=== PATIENT | female | born 1930 | race Caucasian/White ===

== ENCOUNTER 2017-07-20 10:44 | Inpatient (IN) | payer OTHER, MEDICARE ==
[~2017-07-20] VITALS: Ht 157.5 cm; Wt 65.8 kg
[~2017-07-20 10:44] MED LIST: ACETAMINOPHEN-1 EAC3 PO; AMLODIPINE BESYL5 M1 PO; BUSPIRONE HCL10 M1 PO; COLACE100 M1 PO; DONEPEZIL HCL10 M1 PO; FOLIC ACID0.8 M2 PO; NAMENDA XR28 M1 PO; OMEPRAZOLE10 M1 PO; PAROXETINE HCL20 M1 PO; VITAMIN B-121000 MC3 PO
--- NOTE | 2017-07-20 11:11 | ED GI/GU/ABDOMINAL COMPLAINT ---
History of Present Illness General Chief Complaint: Abdominal Pain/Flank Pain Stated Complaint: BIBA ABDOMINAL PAIN, NO BOWEL MOVEMENTS Source: patient, old records, EMS, W10 Exam Limitations: dementia, poor historian Vital Signs & Intake/Output Vital Signs & Intake/Output Vital Signs Date Time Temp Pulse Resp B/P B/P Pulse O2 O2 Flow FiO2 Mean Ox Delivery Rate 07/20 1700 99.0 100 16 116/48 92 Room Air / 1634 99.1 102 18 142/60 93 Room Air 07/20 1551 99.0 100 18 139/61 93 Room Air 03/ 1053 98.4 92 18 209/79 95 Room Air Room Air Allergies Coded Allergies: Penicillins (UNKNOWN 12/09/16) Reconcile Medications Acetaminophen (Tylenol) 325 MG TABLET 2 TAB PO Q4H PRN PAIN/TEMP>100 ( Reported) Acetaminophen With Codeine (Acetaminophen-Cod #3 Tablet) 300 MG-30 MG TABLET 1 TAB PO Q12H PAIN (Reported) Amlodipine Besylate 5 MG TABLET 1 TAB PO DAILY BP (Reported) Bisacodyl (Dulcolax) 10 MG SUPP.RECT 1 SUP RC AD PRN CONSTIPATION (Reported) Buspirone HCl 5 MG TABLET 0.5 TAB PO QAM UNKNOWN (Reported) Buspirone HCl 5 MG TABLET 12.5 MG PO QPM UNKNOWN (Reported) Cyanocobalamin (Vitamin B-12) 1,000 MCG TABLET 1 TAB PO Q3D VITAMIN SUPPORT ( Reported) Docusate Sodium (Colace) 100 MG CAPSULE 1 CAP PO DAILY STOOL SOFTENER ( Reported) Donepezil HCl 10 MG TABLET 1 TAB PO 1700 DEMENTIA (Reported) Folic Acid 0.8 MG TABLET 1 TAB PO DAILY SUPPLEMENT (Reported) Mag Hydrox/Al Hydrox/Simeth (Antacid Maximum Strength Liq) 400 MG-400 MG-40 MG/5 ML ORAL.SUSP 30 ML PO TID PRN EPIGASTRIC/GAS PAIN (Reported) Magnesium Hydroxide (Milk Of Magnesia) 400 MG/5 ML ORAL.SUSP 30 ML PO DAILY PRN CONSTIPATION (Reported) Memantine HCl (Namenda XR) 28 MG CAP.SPR.24 1 CAP PO QHS DEMENTIA (Reported) Na Phos,M-B/Na Phos,Di-Ba (Fleet Enema) 19 GRAM-7 GRAM/118 ML ENEMA 1 E RC DAILY PRN CONSTIPATION (Reported) Nitroglycerin (Nitrostat) 0.3 MG TAB.SUBL 1 TAB SL AD PRN CHEST PAIN ( Reported) Omeprazole 10 MG CAPSULE.DR 1 CAP PO 1600 ACID REFLUX (Reported) Paroxetine HCl 20 MG TABLET 1 TAB PO DAILY MENTAL HEALTH (Reported) Triage Note: BIBA FROM [facility] IN [place] FOR C/O DIFFUSE LOWER ABD DISTENTION AND PAIN, PER EMS [facility] REPORTED DECREASE BM'S X 2 DAYS. PT ARRIVES TO ED AWAKE, ALERT, FORETFUL WHICH IS BASELINE PER EMS. PT C/O MID TO LOWER ABD PAIN WITH MOVEMENT TO SIT UP TO CHANGE OUT OF BATHROBE. PT DENIES NAUSEA OR VOMITING. Triage Nurses Notes Reviewed? yes ? N Is pt currently ? No HPI: Patient presents for evaluation of abdominal pain. The patient herself wasn't sure of exactly why she was sent to the emergency department but with specific questioning does admit to having abdominal pain over the past 2 days. She is describing a cramping lower abdominal pain that has been intermittent. Nothing seems to make her feel better and pain worsens with palpation of the abdomen and certain movements. She states she has been urinating frequently but is unable to state whether or not urination impaction on the pain. She denies the urge to have bowel movements. She denies fever, cold symptoms, vomiting or diarrhea. Past History Travel History Traveled to [place] past 21 day No Medical History Any Pertinent Medical History? see below for history Neurological: dementia EENT: NONE Cardiovascular: hypertension, ?DYSTHYMIC DISORDER W-10 Respiratory: COPD Gastrointestinal: GERD Hepatic: NONE Renal: NONE Musculoskeletal: osteoarthritis, TIB/FIB FRACTURE Psychiatric: anxiety, depression, ETOH Blood Disorders: ANEMIA, B12 DEFICIENCY Tetanus Vaccine: Surgical History Surgical History: non-contributory Psychosocial History What is your primary language Japanese Tobacco Use: Quit >30 days ago ETOH Use: alcoholic Illicit Drug Use: denies illicit drug use Family History Hx Contributory? No Review of Systems Review of Systems Constitutional: Reports: no symptoms. EENTM: Reports: no symptoms. Respiratory: Reports: no symptoms. Cardiovascular: Reports: no symptoms. GI: Reports: see HPI. Genitourinary: Reports: no symptoms. Musculoskeletal: Reports: no symptoms. Skin: Reports: no symptoms. Neurological/Psychological: Reports: no symptoms. Hematologic/Endocrine: Reports: no symptoms. Immunologic/Allergic: Reports: no symptoms. All Other Systems: Reviewed and Negative Physical Exam Physical Exam Gastrointestinal: SEE BELOW Comments: Gen.: Well-nourished, well-developed, no acute respiratory distress. Head: Normocephalic, atraumatic. Eyes: Normal inspection bilaterally Ears: Normal inspection bilaterally Nose: Normal inspection Throat/mouth : Moist mucosa Neck: Supple, full range of motion, no goiter Heart: Regular rate and rhythm, no murmurs rubs or gallops Lungs: Clear to auscultation bilaterally with normal air entry Chest: Nontender Back: Normal range of motion Abdomen: Soft, tympanitic over the upper quadrants, diffusely tender with voluntary guarding, nondistended, normal bowel sounds Extremities: Normal range of motion grossly, equal radial pulses, no cyanosis clubbing or edema Neurologic: Cranial nerves grossly intact, speech is clear Skin: warm and dry Psychiatric: Calm, cooperative, no apparent delusions or hallucinations Core Measures ACS in differential dx? No Sepsis Present: No Sepsis Focused Exam Completed? No Progress Differential Diagnosis: biliary colic, cholecystitis, diverticulitis, hepatitis, ischemic bowel, UTI/pyelo Plan of Care: Orders Procedure Date/time Status Nothing by Mouth 07/21 B Active HEPATIC FUNCTION PANEL 07/21 06 Active CBC WITHOUT DIFFERENTIAL 07/21 0600 Active BASIC ELECTROLYTES PLUS BUN&CR 07/21 0600 Active Clear Liquid Diet 07/20 D Complete Pathway - chart 07/20 1511 Active Patient Data 07/20 1511 Active Code Status 07/20 1511 Active EKG 07/20 1329 Active URINALYSIS 07/20 1111 Complete LIPASE 07/20 1111 Complete COMPREHENSIVE METABOLIC PANEL 07/20 1111 Complete CBC WITHOUT DIFFERENTIAL 07/20 1111 Complete Admit to inpatient 07/20 UNK Active VTE Mechanical Prophylaxis 07/20 UNK Active Vital Signs 07/20 UNK Active Intake & Output 07/20 UNK Active Activity/Ambulation 07/20 UNK Active Current Medications Sig/Joyce Start time Last Medication Dose Stop Time Status Admin Ceftriaxone Sodium 1,000 MG DAILY@1400 07/21 1400 AC (Rocephin) Amlodipine Besylate 5 MG DAILY 07/21 1000 AC (Norvasc) Buspirone HCl 2.5 MG QAM 07/21 1000 AC (Buspar) Docusate Sodium 100 MG DAILY 07/21 1000 AC (Colace) Paroxetine HCl 20 MG DAILY 07/21 1000 AC (Paxil) Omeprazole 40 MG DAILY AC 07/21 0700 AC (Prilosec) Buspirone HCl 12.5 MG QPM 07/20 2200 AC (Buspar) Heparin Sodium 5,000 UNIT Q8 07/20 2200 AC (Porcine) Memantine 10 MG BID 07/20 2200 AC (Namenda) Metronidazole 500 MG Q8H 07/20 2200 AC (Flagyl) N/A 1 UNIT (No Carrier) Donepezil HCl 10 MG 1700 07/20 1700 AC (Aricept) Magnesium Hydroxide 30 ML DAILY PRN 07/20 1530 AC (Milk Of Magnesia) Acetaminophen 650 MG Q4P PRN 07/20 1515 AC (Tylenol) Acetaminophen/ 1 TAB Q12H 07/20 1515 AC 07/20 Codeine Phosphate 1605 (Tylenol #3) Dextrose/Sodium 1,000 ML .Q10H 07/20 1515 AC 07/20 Chloride 1605 (D5W-1/2 Normal Saline 1000ML) Morphine Sulfate 2 MG Q4P PRN 07/20 1515 AC (MORPHINE SULFATE) Ondansetron HCl 4 MG Q8P PRN 07/20 1515 AC (Zofran) Laboratory Tests 07/20/17 1130: Anion Gap 12, Estimated GFR > 60, BUN/Creatinine Ratio 36.3 H, Glucose 109 H, Calcium 8.8, Total Bilirubin 1.2, AST 41 H, ALT 42, Alkaline Phosphatase 171 H , Total Protein 6.5, Albumin 3.2 L, Globulin 3.3, Albumin/Globulin Ratio 1.0 L , Lipase 262, CBC w Diff MAN DIFF ORDERED, RBC 3.56 L, MCV 88.3, MCH 29.8, MCHC 33.8, RDW 13.6, MPV 8.1, Gran % 89.2 H, Lymphocytes % 5.1 L, Monocytes % 5.4, Eosinophils % 0.2, Basophils % 0.1, Absolute Granulocytes 11.7 H, Absolute Lymphocytes 0.7 L, Absolute Monocytes 0.7 H, Absolute Eosinophils 0, Absolute Basophils 0, Platelet Estimate ADEQUATE, Hypochromic-Microcytic 1+, Anisocytosis 1+, Urinalysis MOD H, Urine Color YEL, Urine Clarity HAZY H, Urine pH 6.0, Ur Specific Buchanan 1.025, Urine Protein 100 H, Urine Ketones NEG, Urine Nitrite NEG, Urine Bilirubin NEG@ICTO, Urine Urobilinogen 4.0 H, Ur Leukocyte Esterase NEG, Ur Microscopic SEDIMENT EXAMINED, Urine RBC 1-3, Urine WBC 1-3 H, Ur Epithelial Cells FEW, Urine Bacteria MOD H, Hyaline Casts RARE H, Urine Hemoglobin SMALL H, Urine Glucose NEG Diagnostic Imaging: Discussed w/RAD: CT Scan. Radiology Impression: PATIENT: ALIZA ABERNATHY PRESENT AGE: 86 PATIENT ACCOUNT NO: [id number] : 32 LOCATION: [facility] ORDERING PHYSICIAN: Piyush Richard MD SERVICE DATE: 07/20/17 EXAM TYPE: CAT - CT ABD & PELVIS W IV CONTRAST EXAMINATION: CT ABDOMEN AND PELVIS WITH CONTRAST CLINICAL INFORMATION: 86-year-old woman with diffuse abdominal tenderness. COMPARISON: None TECHNIQUE: Multidetector volumetric imaging was performed of the abdomen and pelvis following IV administration of 95 mL of Optiray 320 intravenous contrast. Sagittal and coronal reformatted images were obtained on the technologist's workstation. DLP: 409 mGy-cm FINDINGS: The lung bases are clear. A 1.3 cm subcutaneous nodule is seen in the lower inner quadrant of the right breast. There is a moderate sized hiatal hernia. There is mild intrahepatic bile duct dilation. The gallbladder is markedly distended with a thickened, enhancing, and irregular wall. The wall actually appears discontinuous along its anterior inferior margin suggesting perforation. There is pericholecystic fluid and inflammatory stranding. Numerous gallstones are seen within the gallbladder and a stone is seen lodged in the gallbladder neck. The common bile duct is not dilated. There is a large nonspecific fluid collection seen in the left upper quadrant measuring 5.5 (AP) x 9.0 (TV) x 12.7 (SI) centimeters. Multiple additional small hypodense lesions in both kidneys are statistically most likely to reflect cysts. The spleen, pancreas, and adrenals are normal in appearance. Nondilated loops of small bowel are unremarkable in appearance. The terminal ileum is not inflamed. The appendix is not clearly identified, although there is no stranding in the right lower quadrant to suggest acute appendicitis. There is mild secondary inflammation of the hepatic flexure due to proximity to the gallbladder. No definite fistula is visible however. Pelvic viscera are not visualized and are presumably surgically absent. The decompressed bladder is unremarkable. IMPRESSION: 1. There is severe cholecystitis with possible perforation of the gallbladder due to the presence of a stone lodged in the gallbladder neck. There is secondary inflammation of the hepatic flexure without a definite identifiable fistula. 2. Large nonspecific fluid collection in the left upper quadrant is of uncertain etiology and significance. It may represent an exophytic left renal cyst. 3. Small subcutaneous nodule in the lower inner quadrant of the right breast. DICTATED BY : Tonya Jack MD DATE/TIME DICTATED:07/20/171307 HANDTOOLS REPAIRER:ESTEBAN DATE/TIME TRANSCRIBED:07/20/171307 CONFIDENTIAL, DO NOT COPY WITHOUT APPROPRIATE AUTHORIZATION. <Electronically signed in Other Vendor System> SIGNED BY: Tonya Jack MD 07/20/17 1322 Initial ED EKG: PT REFUSED Comments: 07/20/2017 1:45:03 PM General surgery has been paged and the patient has orders for IV antibiotics. I have discussed her condition with her sister who has power of document image technician and is her emergency contact. I've also notified her that surgery is very likely. She wishes to speak with other family members and will call back. 07/20/2017 1:48:28 PM I have discussed this patient's case with Dr. Delgado, who has reviewed the CAT scan and feels that this patient is not a good candidate for surgical intervention. He feels the best approach would be an initial conservative management with IV antibiotics and if the patient does not improve, percutaneous drainage of the gallbladder. 07/20/2017 1:52:01 PM I have updated patient's sister who is out of town. she will be in to see her in the morning. Departure Departure Disposition: STILL A PATIENT Condition: Stable Clinical Impression Primary Impression: Acute cholecystitis Referrals: Florencio YOUNG,Hudson Cao (PCP/Family) Departure Forms: Customer Survey General Discharge Information Admission Note Spoke With: Anam Delgado DO Documentation of Exam: Documentation of any treatments & extenuating circumstances including Concerns Regarding Discharge (functional status, medication knowledge or non-compliance, living conditions, etc.) that warrant an admission rather than observation: Patient has acute cholecystitis but is a poor candidate for acute surgical intervention. Surgery could potentially be fatal given this patient's age and medical comorbidities. The patient is likewise a poor candidate for outpatient management given her age, medical comorbidities and the high risk of worsening cholecystitis, peritonitis, sepsis and . I feel she requires hospitalization for IV antibiotics and close clinical monitoring of vital signs for fever and signs of sepsis along with serial abdominal examinations for worsening of pain or overall clinical condition. If the patient does not respond to IV antibiotics then transcutaneous cholecystostomy should be considered. Patient will likely require 2-3 days in order to respond to antibiotic treatment and her stay could be correspondingly longer if cholecystostomy or surgical intervention is required. Critical Care Note Critical Care Note Critical Care Time: 30-74 min
[2017-07-20 11:36] LABS: ABSOLUTE BASOPHIL COUNT 0 /CUMM (0.0-0.2); ABSOLUTE EOSINOPHIL COUNT 0 /CUMM (0.0-0.7); ABSOLUTE GRANULOCYTE CT 11.7 /CUMM (1.4-6.5); ABSOLUTE LYMPH COUNT 0.7 /CUMM (1.2-3.4); ABSOLUTE MONOCYTE COUNT 0.7 /CUMM (0.10-0.60); BASOPHIL % 0.1 % (0.0-2.0); EOSINOPHIL % 0.2 % (0-5); HEMATOCRIT 31.4 % (37-47); MEAN CORPUSCULAR HGB 29.8 PG (27.0-31.0); MEAN CORPUSCULAR HGB CONC 33.8 G/DL (33.0-37.0); MEAN CORPUSCULAR VOLUME 88.3 FL (81.0-99.0); MEAN PLATELET VOLUME 8.1 FL (7.4-10.4); PLATELET COUNT 414 /CUMM (130-400); RBC DISTRIBUTION WIDTH 13.6 % (11.5-14.5); RED BLOOD CELL CT 3.56 /CUMM (4.20-5.40); WHITE BLOOD CELL COUNT 13.1 /CUMM (4.8-10.8)
[2017-07-20 11:56] LABS: GRANULOCYTE % 89.2 % (42.2-75.2)
--- NOTE | 2017-07-20 13:22 | CT SCAN REPORT ---
EXAMINATION: CT ABDOMEN AND PELVIS WITH CONTRAST CLINICAL INFORMATION: 86-year-old woman with diffuse abdominal tenderness. COMPARISON: None TECHNIQUE: Multidetector volumetric imaging was performed of the abdomen and pelvis following IV administration of 95 mL of Optiray 320 intravenous contrast. Sagittal and coronal reformatted images were obtained on the technologist's workstation. DLP: 409 mGy-cm FINDINGS: The lung bases are clear. A 1.3 cm subcutaneous nodule is seen in the lower inner quadrant of the right breast. There is a moderate sized hiatal hernia. There is mild intrahepatic bile duct dilation. The gallbladder is markedly distended with a thickened, enhancing, and irregular wall. The wall actually appears discontinuous along its anterior inferior margin suggesting perforation. There is pericholecystic fluid and inflammatory stranding. Numerous gallstones are seen within the gallbladder and a stone is seen lodged in the gallbladder neck. The common bile duct is not dilated. There is a large nonspecific fluid collection seen in the left upper quadrant measuring 5.5 (AP) x 9.0 (TV) x 12.7 (SI) centimeters. Multiple additional small hypodense lesions in both kidneys are statistically most likely to reflect cysts. The spleen, pancreas, and adrenals are normal in appearance. Nondilated loops of small bowel are unremarkable in appearance. The terminal ileum is not inflamed. The appendix is not clearly identified, although there is no stranding in the right lower quadrant to suggest acute appendicitis. There is mild secondary inflammation of the hepatic flexure due to proximity to the gallbladder. No definite fistula is visible however. Pelvic viscera are not visualized and are presumably surgically absent. The decompressed bladder is unremarkable. IMPRESSION: 1. There is severe cholecystitis with possible perforation of the gallbladder due to the presence of a stone lodged in the gallbladder neck. There is secondary inflammation of the hepatic flexure without a definite identifiable fistula. 2. Large nonspecific fluid collection in the left upper quadrant is of uncertain etiology and significance. It may represent an exophytic left renal cyst. 3. Small subcutaneous nodule in the lower inner quadrant of the right breast.
[2017-07-20] MEDS ORDERED: BUSPIRONE HCL5 M1 PO ×2 (13:44→13:47)
[2017-07-20] MEDS ORDERED: NITROSTAT0.3 M1 SL (13:48)
[2017-07-20] MEDS ORDERED: MILK OF MA400 MG/52 PO (13:49)
[2017-07-20] MEDS ORDERED: DULCOLAX10 M1 RC (13:49)
[2017-07-20] MEDS ORDERED: FLEET ENEMA133 ML RC (13:50)
[2017-07-20] MEDS ORDERED: ANTACID MAXIMU355 ML PO (13:52)
[2017-07-20] MEDS ORDERED: TYLENOL325 M1 PO (13:53)
--- NOTE | 2017-07-20 15:42 | History & Physical ---
Rubia Lees 07/20/17 1524: General Information and HPI Source of Information: old records, W10 Exam Limitations: dementia History of Present Illness: Per ED attending pt presented to ED from an acute care facility [facility] she was complaining of abdominal pain. Pt states that her belly hurts and has been hurting for several days. She says she is nauseous. She does not know where she is or why she is here. She denies fevers and CP although says she feels mildly SOB. Unsure if she took her medications this morning. She denies diarrhea although she did have a bowel movement while in bed in the ED. Allergies/Medications Allergies: Coded Allergies: Penicillins (UNKNOWN 12/09/16) Home Med list Acetaminophen (Tylenol) 325 MG TABLET 2 TAB PO Q4H PRN PAIN/TEMP>100 ( Reported) Acetaminophen With Codeine (Acetaminophen-Cod #3 Tablet) 300 MG-30 MG TABLET 1 TAB PO Q12H PAIN (Reported) Amlodipine Besylate 5 MG TABLET 1 TAB PO DAILY BP (Reported) Bisacodyl (Dulcolax) 10 MG SUPP.RECT 1 SUP RC AD PRN CONSTIPATION (Reported) Buspirone HCl 5 MG TABLET 0.5 TAB PO QAM UNKNOWN (Reported) Buspirone HCl 5 MG TABLET 12.5 MG PO QPM UNKNOWN (Reported) Cyanocobalamin (Vitamin B-12) 1,000 MCG TABLET 1 TAB PO Q3D VITAMIN SUPPORT ( Reported) Docusate Sodium (Colace) 100 MG CAPSULE 1 CAP PO DAILY STOOL SOFTENER ( Reported) Donepezil HCl 10 MG TABLET 1 TAB PO 1700 DEMENTIA (Reported) Folic Acid 0.8 MG TABLET 1 TAB PO DAILY SUPPLEMENT (Reported) Mag Hydrox/Al Hydrox/Simeth (Antacid Maximum Strength Liq) 400 MG-400 MG-40 MG/5 ML ORAL.SUSP 30 ML PO TID PRN EPIGASTRIC/GAS PAIN (Reported) Magnesium Hydroxide (Milk Of Magnesia) 400 MG/5 ML ORAL.SUSP 30 ML PO DAILY PRN CONSTIPATION (Reported) Memantine HCl (Namenda XR) 28 MG CAP.SPR.24 1 CAP PO QHS DEMENTIA (Reported) Na Phos,M-B/Na Phos,Di-Ba (Fleet Enema) 19 GRAM-7 GRAM/118 ML ENEMA 1 E RC DAILY PRN CONSTIPATION (Reported) Nitroglycerin (Nitrostat) 0.3 MG TAB.SUBL 1 TAB SL AD PRN CHEST PAIN ( Reported) Omeprazole 10 MG CAPSULE.DR 1 CAP PO 1600 ACID REFLUX (Reported) Paroxetine HCl 20 MG TABLET 1 TAB PO DAILY MENTAL HEALTH (Reported) Past History Travel History Traveled to [place] past 21 day No Medical History Neurological: dementia, ALCOHOL INDUCED DEMENTIA EENT: NONE Cardiovascular: hypertension, ?DYSTHYMIC DISORDER W-10 Respiratory: COPD Gastrointestinal: GERD, NSAID INDUCED ULCER Hepatic: NONE Renal: NONE Musculoskeletal: osteoarthritis, TIB/FIB FRACTURE Psychiatric: anxiety, depression, ETOH Blood Disorders: ANEMIA, B12 DEFICIENCY Tetanus Vaccine: Surgical History Surgical History: non-contributory (denies any surgeries) Past Family/Social History Psychosocial History ETOH Use: alcoholic Illicit Drug Use: denies illicit drug use Review of Systems Review of Systems Constitutional: Denies: chills, fever. Cardiovascular: Denies: chest pain, palpitations. Respiratory: Reports: short of breath. GI: Reports: abdominal pain. Denies: constipation, diarrhea. Genitourinary: Reports: frequency. Musculoskeletal: Denies: no symptoms. Skin: Denies: no symptoms. Exam & Diagnostic Data Last 24 Hrs of Vital Signs/I&O Vital Signs Date Time Temp Pulse Resp B/P B/P Pulse O2 O2 Flow FiO2 Mean Ox Delivery Rate 07/20 1053 98.4 92 18 209/79 95 Room Air Room Air Intake & Output 07/20 1600 07/20 0800 07/20 0000 Intake Total Output Total 50 Balance -50 Output, Urine 50 Patient 145 lb Weight Weight Estimated Measurement Method Physical Exam General Appearance Alert, Cooperative, No Acute Distress Skin No Rashes Skin Temp/Moisture Exam: Warm/Dry HEENT Atraumatic, EOMI, Mucous Membr. moist/pink Cardiovascular Regular Rate Lungs Clear to Auscultation Abdomen Normal Bowel Sounds, Soft, very tender to palpation Neurological Normal Speech Extremities No Cyanosis (1+ edema in lower extremities) Last 24 Hrs of Labs/Yanick: Laboratory Tests 07/20/17 1130: Anion Gap 12, Estimated GFR > 60, BUN/Creatinine Ratio 36.3 H, Glucose 109 H, Calcium 8.8, Total Bilirubin 1.2, AST 41 H, ALT 42, Alkaline Phosphatase 171 H , Total Protein 6.5, Albumin 3.2 L, Globulin 3.3, Albumin/Globulin Ratio 1.0 L , Lipase 262, CBC w Diff MAN DIFF ORDERED, RBC 3.56 L, MCV 88.3, MCH 29.8, MCHC 33.8, RDW 13.6, MPV 8.1, Gran % 89.2 H, Lymphocytes % 5.1 L, Monocytes % 5.4, Eosinophils % 0.2, Basophils % 0.1, Absolute Granulocytes 11.7 H, Absolute Lymphocytes 0.7 L, Absolute Monocytes 0.7 H, Absolute Eosinophils 0, Absolute Basophils 0, Platelet Estimate ADEQUATE, Hypochromic-Microcytic 1+, Anisocytosis 1+, Urinalysis MOD H, Urine Color YEL, Urine Clarity HAZY H, Urine pH 6.0, Ur Specific [place] 1.025, Urine Protein 100 H, Urine Ketones NEG, Urine Nitrite NEG, Urine Bilirubin NEG@ICTO, Urine Urobilinogen 4.0 H, Ur Leukocyte Esterase NEG, Ur Microscopic SEDIMENT EXAMINED, Urine RBC 1-3, Urine WBC 1-3 H, Ur Epithelial Cells FEW, Urine Bacteria MOD H, Hyaline Casts RARE H, Urine Hemoglobin SMALL H, Urine Glucose NEG Diagnostic Data Other Results EXAM TYPE: CAT - CT ABD & PELVIS W IV CONTRAST EXAMINATION: CT ABDOMEN AND PELVIS WITH CONTRAST CLINICAL INFORMATION: 86-year-old woman with diffuse abdominal tenderness. COMPARISON: None TECHNIQUE: Multidetector volumetric imaging was performed of the abdomen and pelvis following IV administration of 95 mL of Optiray 320 intravenous contrast. Sagittal and coronal reformatted images were obtained on the technologist's workstation. DLP: 409 mGy-cm FINDINGS: The lung bases are clear. A 1.3 cm subcutaneous nodule is seen in the lower inner quadrant of the right breast. There is a moderate sized hiatal hernia. There is mild intrahepatic bile duct dilation. The gallbladder is markedly distended with a thickened, enhancing, and irregular wall. The wall actually appears discontinuous along its anterior inferior margin suggesting perforation. There is pericholecystic fluid and inflammatory stranding. Numerous gallstones are seen within the gallbladder and a stone is seen lodged in the gallbladder neck. The common bile duct is not dilated. There is a large nonspecific fluid collection seen in the left upper quadrant measuring 5.5 (AP) x 9.0 (TV) x 12.7 (SI) centimeters. Multiple additional small hypodense lesions in both kidneys are statistically most likely to reflect cysts. The spleen, pancreas, and adrenals are normal in appearance. Nondilated loops of small bowel are unremarkable in appearance. The terminal ileum is not inflamed. The appendix is not clearly identified, although there is no stranding in the right lower quadrant to suggest acute appendicitis. There is mild secondary inflammation of the hepatic flexure due to proximity to the gallbladder. No definite fistula is visible however. Pelvic viscera are not visualized and are presumably surgically absent. The decompressed bladder is unremarkable. IMPRESSION: 1. There is severe cholecystitis with possible perforation of the gallbladder due to the presence of a stone lodged in the gallbladder neck. There is secondary inflammation of the hepatic flexure without a definite identifiable fistula. 2. Large nonspecific fluid collection in the left upper quadrant is of uncertain etiology and significance. It may represent an exophytic left renal cyst. 3. Small subcutaneous nodule in the lower inner quadrant of the right breast. Assessment/Plan Assessment: 86yo F with dementia, htn and COPD presents from SNF with acute cholecystitis. Will admit for medical management with IV ABX at this time as pt is not a good surgical candidate. May consider perc javi tube if she does not improve with ABX alone. Per W10 pt presented with she is a DNR/DNI at this time. Her sister is her POA and will be coming to the hospital tomorrow morning to discuss treatment plan. plan for IV rocephin and flagyl clear liquid diet dvt ppx- sq heparin AM labs encourage IS Regular home medications Will discuss with Dr. Delgado As Ranked By This Provider Problem List: 1. Acute cholecystitis Core Measures/Misc (02/02) Acute Coronary Syndrome ACS Diagnosis: No Congestive Heart Failure Congestive Heart Failure Diagnosis No Cerebrovascular Accident CVA/TIA Diagnosis: No VTE (View Protocol) VTE Risk Factors Acute Medical Illness No Mechanical VTE Prophylaxis d/t N/A MechProphylax Ordered No VTE Pharm Prophylaxis d/t NA PharmProphylax ordered Sepsis (View protocol) Sepsis Present: No Anam Delgado DO 07/20/17 1700: Attending MD Review Statement Attending Statement Attending MD Statement: examined this patient, discuss w/resident/PA/EXCELSIOR CUTTER, agreed w/resident/PA/EXCELSIOR CUTTER, reviewed EMR data (avail), reviewed images Attending Assessment/Plan: Patient seen and examined, agree with above. Patient to the ED with abdominal pain and constipation as per SNF. Patient with baseline dementia. She reports during my interview that she has been having pain for several weeks (prior she said 2 days). AVSS. Abd-softly distended, +RUQ tenderness, mild diffuse tenderness. Labs reviewed. CT scan - Severe calculous cholecystitis, ? perforation, severe inflammaton extending to hepatic flexure with no clear plane between gallbladder and colon. Given the extent of inflamation and patient being a poor historian, surgical intervention at this time is not appropriate. Will admit, NPO/IVF, IV Abx, will likely need an IR drainage procedure unless significant clinical improvement overnght. Will need a medical consult/F/U. Patient's POA aware of plan and she will be in hospital tomorrow to discuss further treatment.
[2017-07-20 17:00] VITALS: BP 116/48
--- NOTE | 2017-07-20 18:22 | Cons- Medical ---
Kevin Corcoran 07/20/17 1759: General Information and HPI Consulting Request Date of Consult: 07/20/17 Requested By: Anam Delgado DO Reason for Consult: Hypertension and comanagement of acute cholecystitis Source of Information: patient, W10 Exam Limitations: poor historian, forgetful History of Present Illness: She is 86-year-old woman with past medical history of Alzheimer's, hypertension, major depressive disorder, GERD and COPD BIBA from [facility]. Per W10 she was complaining of 10/10 abdominal pain for the past few days. Vitals on W 10 are temperature 98.4, pulse 116, respiratory rate 24, blood pressure 146/70. Patient is very forgetful and not a good historian. She does not exactly know where she is right now and why she is here. On my evaluation she denies any fever, chills, abdominal pain, nausea, vomiting, difficulty breathing, chest pain, any change in urinary or bowel habits. According to patient she was eating drinking okay. She reports smoking 5 cigarettes per day since teenage. Denies drinking alcohol. I called [facility] and tried to get more information from her nurse Hudson. According to him patient is pretty healthy and independent. Last night she did not eat well and this morning she did not eat at all. She complained of abdominal pain only today. He does not know about any fever, chills, nausea, vomiting, change in bowel habits or change in color of her stool. Allergies/Medications Allergies: Coded Allergies: Penicillins (UNKNOWN 12/09/16) Home Med List: Acetaminophen (Tylenol) 325 MG TABLET 2 TAB PO Q4H PRN PAIN/TEMP>100 ( Reported) Acetaminophen With Codeine (Acetaminophen-Cod #3 Tablet) 300 MG-30 MG TABLET 1 TAB PO Q12H PAIN (Reported) Amlodipine Besylate 5 MG TABLET 1 TAB PO DAILY BP (Reported) Bisacodyl (Dulcolax) 10 MG SUPP.RECT 1 SUP RC AD PRN CONSTIPATION (Reported) Buspirone HCl 5 MG TABLET 0.5 TAB PO QAM UNKNOWN (Reported) Buspirone HCl 5 MG TABLET 12.5 MG PO QPM UNKNOWN (Reported) Cyanocobalamin (Vitamin B-12) 1,000 MCG TABLET 1 TAB PO Q3D VITAMIN SUPPORT ( Reported) Docusate Sodium (Colace) 100 MG CAPSULE 1 CAP PO DAILY STOOL SOFTENER ( Reported) Donepezil HCl 10 MG TABLET 1 TAB PO 1700 DEMENTIA (Reported) Folic Acid 0.8 MG TABLET 1 TAB PO DAILY SUPPLEMENT (Reported) Mag Hydrox/Al Hydrox/Simeth (Antacid Maximum Strength Liq) 400 MG-400 MG-40 MG/5 ML ORAL.SUSP 30 ML PO TID PRN EPIGASTRIC/GAS PAIN (Reported) Magnesium Hydroxide (Milk Of Magnesia) 400 MG/5 ML ORAL.SUSP 30 ML PO DAILY PRN CONSTIPATION (Reported) Memantine HCl (Namenda XR) 28 MG CAP.SPR.24 1 CAP PO QHS DEMENTIA (Reported) Na Phos,M-B/Na Phos,Di-Ba (Fleet Enema) 19 GRAM-7 GRAM/118 ML ENEMA 1 E RC DAILY PRN CONSTIPATION (Reported) Nitroglycerin (Nitrostat) 0.3 MG TAB.SUBL 1 TAB SL AD PRN CHEST PAIN ( Reported) Omeprazole 10 MG CAPSULE.DR 1 CAP PO 1600 ACID REFLUX (Reported) Paroxetine HCl 20 MG TABLET 1 TAB PO DAILY MENTAL HEALTH (Reported) Current Medications: Current Medications Sig/Joyce Start time Last Medication Dose Route Stop Time Status Admin Acetaminophen 650 MG Q4P PRN 07/20 1515 AC PO Acetaminophen/ 0 .STK-MED ONE 07/20 1558 DC Codeine Phosphate PO Acetaminophen/ 1 TAB Q12H 07/20 1515 AC 07/20 Codeine Phosphate PO 1605 Amlodipine Besylate 5 MG DAILY 07/21 1000 AC PO Buspirone HCl 2.5 MG QAM 07/21 1000 AC PO Buspirone HCl 12.5 MG QPM 07/20 2200 AC PO Ceftriaxone Sodium 1,000 MG DAILY@1400 07/21 1400 AC IV Ceftriaxone Sodium 0 .STK-MED ONE 07/20 1402 DC .ROUTE Ceftriaxone Sodium 1,000 MG ONCE ONE 07/20 1330 DC 03/ IV 07/20 1331 1400 Dextrose/Sodium 1,000 ML .Q10H 07/20 1515 AC 03/04 Chloride IV 1605 Docusate Sodium 100 MG DAILY 07/21 1000 AC PO Donepezil HCl 10 MG 1700 03/04 1700 AC PO Heparin Sodium 5,000 UNIT Q8 07/20 2200 AC (Porcine) SC Magnesium Hydroxide 30 ML DAILY PRN 07/20 1530 AC PO Memantine 10 MG BID 07/20 2200 AC PO Metronidazole 500 MG Q8H 07/20 2200 AC N/A 1 UNIT IV Metronidazole 500 MG ONCE ONE 07/20 1330 DC 07/20 N/A 1 UNIT IV 07/20 1429 1400 Morphine Sulfate 2 MG Q4P PRN 07/20 1515 AC IV Omeprazole 40 MG DAILY AC 07/21 0700 AC PO Ondansetron HCl 4 MG Q8P PRN 07/20 1515 AC IV Paroxetine HCl 20 MG DAILY 07/21 1000 AC PO Review of Systems Review of Systems Constitutional: Reports: see HPI. Past History Travel History Traveled to [place] past 21 day No Medical History Neurological: dementia, ALCOHOL INDUCED DEMENTIA EENT: NONE Cardiovascular: hypertension, ?DYSTHYMIC DISORDER W-10 Respiratory: COPD Gastrointestinal: GERD, NSAID INDUCED ULCER Hepatic: NONE Renal: NONE Musculoskeletal: osteoarthritis, TIB/FIB FRACTURE Psychiatric: anxiety, depression, ETOH Blood Disorders: ANEMIA, B12 DEFICIENCY Surgical History Surgical History: non-contributory (denies any surgeries) Psychosocial History ETOH Use: alcoholic Illicit Drug Use: denies illicit drug use Exam & Diagnostic Data Last 24 Hrs of Vital Signs/I&O Vital Signs Date Time Temp Pulse Resp B/P B/P Pulse O2 O2 Flow FiO2 Mean Ox Delivery Rate 07/20 1700 99.0 100 16 116/48 92 Room Air 07/20 1634 99.1 102 18 142/60 93 Room Air 07/20 1551 99.0 100 18 139/61 93 Room Air 07/20 1053 98.4 92 18 209/79 95 Room Air Room Air Intake & Output 07/20 1600 07/20 0800 07/20 0000 Intake Total Output Total 50 Balance -50 Output, Urine 50 Patient 145 lb Weight Weight Estimated Measurement Method Physical Exam General Appearance: no apparent distress, alert, awake, comfortable Neck: supple Respiratory: normal breath sounds, chest non-tender Cardiovascular: regular rate/rhythm Gastrointestinal: normal bowel sounds, soft, diffuse abdominal tenderness more intense on the right upper quadrant. patient refused to be examined further. Extremities: no edema Last 24 Hrs of Labs/Yanick: Laboratory Tests 07/20/17 1130: Anion Gap 12, Estimated GFR > 60, BUN/Creatinine Ratio 36.3 H, Glucose 109 H, Calcium 8.8, Total Bilirubin 1.2, AST 41 H, ALT 42, Alkaline Phosphatase 171 H , Total Protein 6.5, Albumin 3.2 L, Globulin 3.3, Albumin/Globulin Ratio 1.0 L , Lipase 262, CBC w Diff MAN DIFF ORDERED, RBC 3.56 L, MCV 88.3, MCH 29.8, MCHC 33.8, RDW 13.6, MPV 8.1, Gran % 89.2 H, Lymphocytes % 5.1 L, Monocytes % 5.4, Eosinophils % 0.2, Basophils % 0.1, Absolute Granulocytes 11.7 H, Absolute Lymphocytes 0.7 L, Absolute Monocytes 0.7 H, Absolute Eosinophils 0, Absolute Basophils 0, Platelet Estimate ADEQUATE, Hypochromic-Microcytic 1+, Anisocytosis 1+, Urinalysis MOD H, Urine Color YEL, Urine Clarity HAZY H, Urine pH 6.0, Ur Specific [place] 1.025, Urine Protein 100 H, Urine Ketones NEG, Urine Nitrite NEG, Urine Bilirubin NEG@ICTO, Urine Urobilinogen 4.0 H, Ur Leukocyte Esterase NEG, Ur Microscopic SEDIMENT EXAMINED, Urine RBC 1-3, Urine WBC 1-3 H, Ur Epithelial Cells FEW, Urine Bacteria MOD H, Hyaline Casts RARE H, Urine Hemoglobin SMALL H, Urine Glucose NEG Assessment/Plan Assessment/Plan She is 86-year-old woman with past medical history of Alzheimer's, hypertension, major depressive disorder, GERD and COPD BIBA from [facility] with c/o of abdominal pain. On admission her temperature was 98.4, pulse 92, respiratory rate 18, blood pressure 209/79 and oxygen saturation 95% on room air. Pertinent labs are WBC count 13.1, H&H 10.6/31.4, platelet count 414, BUN/creatinine ratio 36.3, AST 41 , alkaline phosphatase 171, UA showed positive proteins and urobilinogen. Moderate urinary bacteria with urine WBC 1-3. PROBLEM LIST 1. Severe cholecystitis with possible perforation of the gallbladder. Abdomen and pelvis with IV contrast shows Numerous gallstones within the gallbladder and a stone lodged in the gallbladder neck. CBD not dilated. Mild secondary inflammation of the hepatic flexure but no fistula was visible. In ER she was given IV fluids, ceftriaxone and Flagyl. General surgery was called. Per surgery patient is not a good candidate for surgical intervention. Plan is to continue conservative management with IV antibiotics for now and if patient does not improve then go for percutaneous cholecystostomy tube. It is reasonable to obtain blood cultures 2. Plan is to keep patient nothing by mouth for now. Continue IV fluids, antibiotics and pain management. 2. History of hypertension. On admission her blood pressure was 209/79. She received her amlodipine before coming here. After some time her blood pressure came down nicely to 142/60 without any further medication. She refused to get an EKG in ER. We will try asking her again. EKG done by EMS did not show any acute ST-T wave changes. 3. Incidental findings on CAT scan. There was also a large nonspecific fluid collection in the left upper quadrant ? Exophytic left renal cyst. Multiple renal cysts. Small subcutaneous nodule in the lower inner quadrant of right breast. ER physician discussed her condition with her sister, ELLIE , Valorie Wing ). She will be coming tomorrow morning to discuss treatment plan. Continue all her home medications pain management pathway DVT prophylaxis Patient is DNR/DNI PCP: Dr. Matias Problem List: 1. Acute cholecystitis Consult Acknowledgment - Thank you for your consult request. Lizandro YOUNG, [facility] 07/20/17 1894: Assessment/Plan Consult Acknowledgment - Thank you for your consult request. Attending MD Review Statement Attending Statement Attending MD Statement: examined this patient, discuss w/resident/PA/SECURITY TECHNICIAN, agreed w/resident/PA/SECURITY TECHNICIAN, reviewed images, amended to note Attending Assessment/Plan: 86 yo F resident of [facility], with h/o dementia, HTN, COPD, GERD, OA, NSAID induced ulcers, depression, B12 deficiency is admitted to Surgical service for management of acute calculous cholecystitis with ?perforation. Medicine is being consulted for co-management. Patient was sent in from [facility] for c/o diffuse intense abdominal pain for past 2 days, unclear if this was associated with nausea, vomiting or diarrhea/constipation. Patient is a limited historian due to her dementia and RN at the facility is not aware. On my evaluation, patient c/o abdominal discomfort but has no other complaints. At baseline, patient is independent with her ADLs. It is unclear if patient continues to smoke. Vitals: Tmax 99.1, HR 90-100's, BP 209/79 --> 142/60 --> 116/48, sats 93% on RA. Exam: awake, alert but not oriented. Mucous membranes are dry, Neck supple, bluish ecchymotic patches noted to upper chest and neck, Chest b/l clear, Heart S1S2 regular, Abd soft, distended, BS+, right upper quadrant and diffuse tenderness+, patient winces in pain when palpated. Lower quadrant abdominal scar from previous appendectomy/ hysterectomy. LE: trace edema. Labs: WBC 13.1, H/H 10.6/31.4, Plt 414, BUN 29, creat 0.8, T. Bili is normal, AST 41, ALT 42, Alk phos 171. Lipase 262. UA hazy, proteinuria, negative nitrite or LE, WBC 1-3. CT abd/pelvis: severe cholecystitis with possible perforation of GB with stone lodged in GB neck. Large nonspecific fluid collection in left upper quadrant ? exophytic left renal cyst. EKG: sinus rhythm, LAD, nonspecific T-wave abnormalities, Qtc 458. Assessment and plan: 1. Acute calculous cholecystitis with possible perforation 2. Accelerated hypertension 2/2 pain resolved 3. Chronic anemia likely B12 deficiency on supplementation 4. History of COPD, not in exacerbation 5. GERD, NSAID induced ulcers 6. Dementia - Patient admitted to Surgical service and is deemed not a surgical candidate at this point - Serial abdomen exams - NPO, IV fluids D5-1/2NS as ordered - Panculture - IV ceftriaxone and flagyl - If no improvement, plan is for IR guided percutaneous cholecystostomy tube - BP has stabilized, probably related to her pain. Will continue amlodipine - Pain management with tylenol or low dose morphine, would be cautious with narcotics in this elderly lady - Avoid NSAIDs given her h/o ulcers in the past - IV pantoprazole daily - EKG shows no new changes, will add on a troponin to ER labs. - Resume home meds donepezil, namenda, folic acid, B12, paroxetine, buspar and amlodipine. If she is nauseous, would hold off these meds. - TRC nebs as needed, incentive spirometry - Nicotine patch as needed h/o smoking is unclear DVT ppx Hep SC. DNR/I (living will in chart) Sister who is the POA will be here in the morning to discuss plan of care.
[2017-07-20 22:00] VITALS: BP 116/72
[2017-07-21 06:30] VITALS: BP 124/44
[2017-07-21 08:14] LABS: ABSOLUTE BASOPHIL COUNT 0 /CUMM (0.0-0.2); ABSOLUTE EOSINOPHIL COUNT 0 /CUMM (0.0-0.7); ABSOLUTE GRANULOCYTE CT 8.3 /CUMM (1.4-6.5); ABSOLUTE LYMPH COUNT 0.8 /CUMM (1.2-3.4); ABSOLUTE MONOCYTE COUNT 0.8 /CUMM (0.10-0.60); BASOPHIL % 0.2 % (0.0-2.0); EOSINOPHIL % 0.2 % (0-5); GRANULOCYTE % 83.8 % (42.2-75.2); HEMATOCRIT 31.4 % (37-47); MEAN CORPUSCULAR HGB CONC 33.9 G/DL (33.0-37.0); MEAN CORPUSCULAR VOLUME 88.3 FL (81.0-99.0); MEAN PLATELET VOLUME 8.1 FL (7.4-10.4); PLATELET COUNT 391 /CUMM (130-400); RBC DISTRIBUTION WIDTH 14.3 % (11.5-14.5); RED BLOOD CELL CT 3.55 /CUMM (4.20-5.40); WHITE BLOOD CELL COUNT 9.9 /CUMM (4.8-10.8)
--- NOTE | 2017-07-21 09:28 | PN- General Surgery ---
See Addendum Subjective Subjective: sleepy. wakes when spoken to, touched. "i feel lousy" "my stomach hurts" Objective Vital Signs and I&Os Vital Signs Date Time Temp Pulse Resp B/P B/P Pulse O2 O2 Flow FiO2 Mean Ox Delivery Rate 07/21 629 98.3 89 20 124/44 91 / 0000 Room Air 07/20 2200 90 18 116/72 93 Room Air 07/20 1700 99.0 100 16 116/48 92 Room Air 07/20 1634 99.1 102 18 142/60 93 Room Air 07/20 1551 99.0 100 18 139/61 93 Room Air 07/20 1053 98.4 92 18 209/79 95 Room Air Room Air Intake & Output 07/21 0807/21 0000 07/20 1600 07/20 0800 07/20 0000 Intake Total 800 240 Output Total 350 50 Balance 800 -110 -50 Intake, IV 800 Intake, Oral 0 240 Output, Urine 350 50 Patient 145 lb 145 lb Weight Weight Reported by Patient Estimated Measurement Method Physical Exam: gen- nad card-s1s2 abd- dist, tender to light papation epigastric/ruq. (difficult to examine, laying on right side) Assessment/Plan Assessment/Plan A- HD1 with cholecystitis, ?gb perf vs significant inflammatory fluid, not a surgical candiate, with persistent pain P- will dw plan with Dr. Delgado. fu labs. ?perc javi, ?other IR drain. ? medicine transfer since not operative candidate Core Measures Venous Thromboembolism VTE Risk Factors Acute Medical Illness No Mechanical VTE Prophylaxis d/t N/A MechProphylax Ordered No VTE Pharm Prophylaxis d/t NA PharmProphylax ordered
[2017-07-21 12:10] LABS: PT 14.2 SEC (9.4-12.5)
--- NOTE | 2017-07-21 12:32 | PN- Att Addend ---
Attending Addendum Attending Brief Note Patient seen and examined, she was still some thinning of abdominal pain. She wasn't that nauseous. Patient is admitted with severe acute cholecystitis with possible perforation of the gallbladder with the stone on lodged in the gallbladder neck. Currently patient is being managed conservatively and there is some thinking about possibility of putting up cholecystostomy tube. Vital Signs Date Time Temp Pulse Resp B/P B/P Pulse O2 O2 Flow FiO2 Mean Ox Delivery Rate 07/21 1141 84 150/86 07/21 0630 98.3 89 20 124/44 91 07/21 0000 Room Air 07/20 2200 90 18 116/72 93 Room Air 03/ 1700 99.0 100 16 116/48 92 Room Air / 1634 99.1 102 18 142/60 93 Room Air 03/ 1551 99.0 100 18 139/61 93 Room Air on exam; was sleeping but arousable. cv; s1,s2, rrr resp; clear abd; soft, tender in epigastric, ruq region, bs+ ext; no edema. Laboratory Tests 07/21 07/21 1146 0635 Chemistry Sodium (137 - 145 mmol/L) 139 Potassium (3.5 - 5.1 mmol/L) 3.9 Chloride (98 - 107 mmol/L) 101 Carbon Dioxide (22 - 30 mmol/L) 25 Anion Gap (5 - 16) 13 BUN (7 - 17 mg/dL) 20 H Creatinine (0.5 - 1.0 mg/dL) 0.8 Estimated GFR (>60 ml/min) > 60 BUN/Creatinine Ratio (7 - 25 %) 25.0 Total Bilirubin (0.2 - 1.3 mg/dL) 1.3 Direct Bilirubin (< 0.4 mg/dL) 0.9 H AST (14 - 36 U/L) 26 ALT (9 - 52 U/L) 36 Alkaline Phosphatase (<127 U/L) 173 H Total Protein (6.3 - 8.2 g/dL) 6.1 L Albumin (3.5 - 5.0 g/dL) 2.9 L Coagulation PT (9.4 - 12.5 SEC) 14.2 H INR (0.90 - 1.19) 1.30 H Hematology CBC w Diff MAN DIFF ORDERED WBC (4.8 - 10.8 /CUMM) 9.9 RBC (4.20 - 5.40 /CUMM) 3.55 L Hgb (12.0 - 16.0 G/DL) 10.6 L Hct (37 - 47 %) 31.4 L MCV (81.0 - 99.0 FL) 88.3 MCH (27.0 - 31.0 PG) 30.0 MCHC (33.0 - 37.0 G/DL) 33.9 RDW (11.5 - 14.5 %) 14.3 Plt Count (130 - 400 /CUMM) 391 MPV (7.4 - 10.4 FL) 8.1 Gran % (42.2 - 75.2 %) 83.8 H Lymphocytes % (20.5 - 51.1 %) 8.1 L Monocytes % (1.7 - 9.3 %) 7.7 Eosinophils % (0 - 5 %) 0.2 Basophils % (0.0 - 2.0 %) 0.2 Absolute Granulocytes (1.4 - 6.5 /CUMM) 8.3 H Segmented Neutrophils (42.2 - 75.2 %) 80 H Band Neutrophils (0.0 - 5.0 %) 8 H Absolute Lymphocytes (1.2 - 3.4 /CUMM) 0.8 L Lymphocytes (20.5 - 51.1 %) 6 L Monocytes (1.7 - 9.3 %) 4 Absolute Monocytes (0.10 - 0.60 /CUMM) 0.8 H Eosinophils (0 - 5.0 %) 1 Absolute Eosinophils (0.0 - 0.7 /CUMM) 0 Basophils (0.0 - 2.0 %) 1 Absolute Basophils (0.0 - 0.2 /CUMM) 0 Platelet Estimate (ADEQUATE) ADEQUATE Hypochromic-Microcytic 1+ Anisocytosis 1+ Assessment and recommendations: 86-year-old woman with past medical history of Alzheimer's, hypertension, major depressive disorder, GERD admitted with abdominal pain and found to have acute severe calculus cholecystitis with possible gallbladder perforation. Patient also had accelerated hypertension which was resolved after receiving her medications. Patient has been managed conservatively so far by surgery and there is a plan for possible cholecystostomy tube placement. Continue amlodipine for blood pressure control. Patient currently nothing by mouth. Getting IV antibiotics. Getting IV fluids. Pain mx adequate. Continue all other current meds. Dvt px; hep sq. Thank you, will follow.
--- NOTE | 2017-07-21 14:35 | PN- Medicine Consult ---
Bailey Goss 07/21/17 1432: Assessment/PlanMedical Consult Assessment/Plan Assessment: Medical consult was requested for mangement of hypertension and acute cholecystitis. Patient was started on IV cefteriaxone and Flagyl yesterday. Amlodipine 5 mg. She has Hx of anxiety and depression and dementia. in : 1. Acute calculous cholecystitis with possible perforation 2. Accelerated hypertension 2/2 pain resolved 3. Chronic anemia likely B12 deficiency on supplementation 4. History of COPD, not in exacerbation 5. GERD, NSAID induced ulcers 6. Dementia Plan: - Patient admitted to Surgical service and is deemed not a surgical candidate at this point - NPO, IV fluids D5-1/2NS as ordered - Panculture - IV ceftriaxone and flagyl #1; no fever, leukocytosis has improved - persistent pain; not a surgical candidate due to her age and medical comobidities; surgical team is leaning toward; IR PC drainage of the GB - Pain decreased, patient is still complaining of abdominal pain; management with tylenol or low dose morphine, would be cautious with narcotics in this elderly lady - IV pantoprazole daily - Resume home meds donepezil, namenda, folic acid, B12, paroxetine, buspar and amlodipine. - TRC nebs as needed, incentive spirometry - Nicotine patch as needed h/o smoking is unclear DVT ppx Hep SC. DNR/I (living will in chart) Sister who is the POA will be here in the morning to discuss plan of care Problem List: 1. Acute cholecystitis Subjective Subjective: was examined today. Pain is less than yesterday, still complains of pain. Review of Systems Constitutional: Reports: see HPI. Objective Last 24 Hrs of Vital Signs/I&O Vital Signs Date Time Temp Pulse Resp B/P B/P Pulse O2 O2 Flow FiO2 Mean Ox Delivery Rate 07/21 1141 84 150/86 07/21 0630 98.3 89 20 124/44 91 03/05 0000 Room Air / 2200 90 18 116/72 93 Room Air / 1700 99.0 100 16 116/48 92 Room Air / 1634 99.1 102 18 142/60 93 Room Air 07/20 1551 99.0 100 18 139/61 93 Room Air Intake & Output 07/21 1600 03/05 0800 03 0000 Intake Total 660 800 240 Output Total 350 Balance 660 800 -110 Intake, IV 600 800 Intake, Oral 60 0 240 Output, Urine 350 Patient 145 lb Weight Weight Reported by Patient Measurement Method Physical Exam General Appearance: alert, awake, mild distress Abdomen: guarding, tenderness Back: normal inspection Current Medications: Current Medications Sig/Joyce Start time Last Medication Dose Route Stop Time Status Admin Acetaminophen 650 MG .STK-MED ONE 07/21 0342 DC PO 07/21 0343 Acetaminophen 650 MG Q4P PRN 07/20 1515 AC 07/21 PO 0344 Acetaminophen/ 1 TAB Q12H 07/21 1000 AC 07/21 Codeine Phosphate PO 1141 Acetaminophen/ 0 .STK-MED ONE 07/20 1558 DC Codeine Phosphate PO Acetaminophen/ 1 TAB Q12H 07/20 1515 DC 07/20 Codeine Phosphate PO 1605 Amlodipine Besylate 5 MG DAILY 07/21 1000 AC 07/21 PO 1141 Buspirone HCl 2.5 MG QAM 07/21 1000 AC 07/21 PO 1143 Buspirone HCl 12.5 MG QPM 07/20 2200 AC 07/20 PO 2233 Ceftriaxone Sodium 1,000 MG DAILY@1400 / 1400 AC IV Dextrose/Sodium 1,000 ML .Q10H 07/20 1515 AC 07/21 Chloride IV 0930 Docusate Sodium 100 MG DAILY 07/21 1000 AC 07/21 PO 1141 Donepezil HCl 10 MG 1700 / 1700 AC 07/20 PO 1858 Famotidine 20 MG BID 07/20 2200 CAN IV Heparin Sodium 5,000 UNIT Q8 07/20 2200 DC 07/21 (Porcine) SC 0513 Magnesium Hydroxide 30 ML DAILY PRN 07/20 1530 AC PO Memantine 10 MG BID 07/20 2200 AC 07/21 PO 1141 Metronidazole 500 MG Q8H 07/20 2200 AC 07/21 N/A 1 UNIT IV 0513 Morphine Sulfate 2 MG ONCE ONE 07/20 2300 DC IV / 2301 Morphine Sulfate 4 MG Q8H PRN 07/20 2300 DC IV Morphine Sulfate 2 MG Q8H PRN / 1930 AC IV Morphine Sulfate 2 MG Q4P PRN 07/20 1515 DC 03 IV 1858 Omeprazole 40 MG DAILY AC 07/21 0700 CAN PO Ondansetron HCl 4 MG Q8P PRN 07/20 1515 AC IV Pantoprazole Sodium 40 MG DAILY 07/21 1000 AC 07/21 IV 1142 Paroxetine HCl 20 MG DAILY 07/21 1000 AC 07/21 PO 1141 Results Last 24 Hrs Lab/Yanick Results: Laboratory Tests 07/21/17 1146: PT 14.2 H, INR 1.30 H 07/21/17 0635: Anion Gap 13, Estimated GFR > 60, BUN/Creatinine Ratio 25.0, Total Bilirubin 1.3 , Direct Bilirubin 0.9 H, AST 26, ALT 36, Alkaline Phosphatase 173 H, Total Protein 6.1 L, Albumin 2.9 L, CBC w Diff MAN DIFF ORDERED, RBC 3.55 L, MCV 88.3, MCH 30.0, MCHC 33.9, RDW 14.3, MPV 8.1, Gran % 83.8 H, Lymphocytes % 8.1 L, Monocytes % 7.7, Eosinophils % 0.2, Basophils % 0.2, Absolute Granulocytes 8.3 H, Segmented Neutrophils 80 H, Band Neutrophils 8 H, Absolute Lymphocytes 0.8 L, Lymphocytes 6 L, Monocytes 4, Absolute Monocytes 0.8 H, Eosinophils 1, Absolute Eosinophils 0, Basophils 1, Absolute Basophils 0, Platelet Estimate ADEQUATE, Hypochromic-Microcytic 1+, Anisocytosis 1+ Microbiology 07/20 1921 BLOOD: Blood Culture - CAN Cancelled: SPECIMEN NOT RECEIVED IN LABORATORY 07/20 1921 BLOOD: Blood Culture - CAN Cancelled: SPECIMEN NOT RECEIVED IN LABORATORY Lorna Chase MD 07/23/17 1218: Attending MD Review Statement Attending Sign Off Attending Cosign Statement: I have: examined this patient, reviewed [facility] EMR data, personally reviewd images, discussd w/resident/PA/MAINFRAME APPLICATIONS DEVELOPER, discussed mgmt plan w/meeta, discussed mgmt plan w/pt, agreed w/resident/PA/MAINFRAME APPLICATIONS DEVELOPER, amended to note. Other Findings: See my separate note also.
[2017-07-21 15:28] VITALS: BP 138/70
--- NOTE | 2017-07-21 17:09 | ULTRASOUND REPORT ---
CLINICAL HISTORY: This patient is a 86 years old Female with acute calculus cholecystitis, who presents to Interventional Radiology for cholecystostomy tube placement under ultrasound guidance. PROCEDURE: 1. Limited right upper quadrant ultrasound. 2. Ultrasound-guided placement of a cholecystectomy tube. PHYSICIANS: Dr. Francine Porter (attending). MONITORING: The procedure was performed with conscious sedation and analgesia under my direct supervision. Continuous blood pressure, pulse oximetry as well as heartrate monitoring was performed by an independent registered nurse. Physician intraservice sedation time was 20 minutes. MEDICATIONS: 1. Versed 1 mg and fentanyl 50 mcg IV were administered. 2. Lidocaine 1%, 8 mL, SQ. 3. Patient or to receiving antibiotic therapy. COMPLICATIONS: None ESTIMATED BLOOD LOSS: <5 mL SPECIMENS: Purulent bile IMPLANT: None SITE MARKING: As part of the preprocedure verification policy, a site marking procedure was initiated. Due to the nature the procedure, the insertion site could not be predetermined thus invoking the policy of exemption to site laterality and marking. Insertion site marking was performed in the procedure room in conjunction with imaging confirmation. PROCEDURE NOTE: Informed consent was obtained from the patient prior to the procedure. During this process, the procedure and potential alternatives were explained along with the intended outcome and benefits. The risks of the procedure, including the possibility of an unsuccessful procedure, as well as the risk of not doing the procedure, were discussed. The patient was given the opportunity to ask questions regarding the procedure and appeared competent to make decisions. A signed consent form documenting this discussion was placed in the medical record. A time-out procedure was performed. The patient was placed supine on the US table. Ultrasound evaluation of the gallbladder was performed. A safe transhepatic standard percutaneous approach was identified through the standard area of the liver into the gallbladder. The gallbladder was dilated with thickened wall and small pericholecystic fluid . The right upper quadrant was prepped and draped in usual sterile fashion. All elements of maximal sterile barrier technique followed including use of cap, mask, sterile gown, sterile gloves, a sterile full body drape and hand hygiene. Also followed skin preparation with 2% chlorhexidine for cutaneous antisepsis, and sterile ultrasound preparation with sterile gel and probe cover when applicable. 8 mL of 1% lidocaine was used to obtain local anesthesia of the skin and deeper tissues. Using standard interventional and sterile technique as well as real-time ultrasound guidance a 8.5 Fr Mccormick-Mackenzie pigtail catheter was introduced through the transhepatic approach into the gallbladder lumen. Bile drained immediately. A sample of bile was sent for gram stain and culture. Ultrasound confirmed the course of the trocar needle introduction. Approximately 50 mL of purulent debris-containing bile was drained. The catheter was hooked up to external gravity drainage. The catheter was secured into position with sutures and a StatLock device. The patient tolerated the procedure well. FINDINGS: 1. Limited ultrasound of the abdomen demonstrated a dilated gallbladder with thickened wall and small pericholecystic fluid. 2. Successful ultrasound-guided percutaneous cholecystostomy tube placement. IMPRESSION: Successful ultrasound-guided percutaneous cholecystostomy tube placement. PLAN: 1. The patient was stable after the procedure and was transferred to the interventional recovery area. The patient will be transferred to a hospital room when stable by sedation protocol. 2. The tube should be open to external gravity drainage via drainage bag. 3. The tube should be flushed 3 times daily with 10 mL normal saline. 4. The drain needs to remain in place for at least 4-6 weeks to give time for the tract through the liver to mature.
[2017-07-21 22:38] VITALS: BP 98/58
[2017-07-22 06:47] VITALS: BP 140/64
--- NOTE | 2017-07-22 07:28 | PN- Medicine Consult ---
SonamsydneybetyBailey 07/22/17 0725: Assessment/PlanMedical Consult Assessment/Plan Assessment: Medical consult was requested for mangement of hypertension and acute cholecystitisl; CT ascn at the time of admission was suggestive of severe cholecyctitis w/ possible perforation; unfortunately, patient is a poor surgical candidate for lap javi. medical Tx was persued with Abx Tx and pain management. On 07/21/2017, patient underwent US-guided PCT cholecyctostomy; with anticipation to leave the the drain for 4-6 w. Patient is on IV cefteriaxone and Flagyl Day#2, pain management, and Amlodipine [address] scan finding: There is severe cholecystitis with possible perforation of the gallbladder due to the presence of a stone lodged in the gallbladder neck. There is secondary inflammation of the hepatic flexure without a definite identifiable fistula. in summery her list of medical issues are as followin. Acute calculous cholecystitis with possible perforation s/p cholecyctostomy placement and IV AbX and pain management. Plan for elective cholecyctectomy ?? after 4-6 weeks. 2. Accelerated hypertension 2/2 pain resolved 3. Chronic anemia likely B12 deficiency on supplementation 4. History of COPD, not in exacerbation 5. GERD, NSAID induced ulcers 6. Dementia Plan: - Clear liquid diet -S/p pct cholecyctostomy drainage placement; anticipation for 4-6 w. possible tranfer to medical service - body fluid Cx are pending ( gall bladder aspirate) - IV ceftriaxone and flagyl #3; no fever, labs are pending - Iv zofran as neeeded for nausea after checking QT 4 mg Iv Q6h - Pain slightly decreased, but patient is still complaining of abdominal pain- uptitration of pain medication with holding parameter for confusion. Recommend morphin 1 mg q 4h - IV pantoprazole daily - Resume home meds donepezil, namenda, folic acid, B12, paroxetine, buspar and amlodipine. - TRC nebs as needed, incentive spirometry - Nicotine patch as needed h/o smoking is unclear DVT ppx Hep SC. DNR/I (living will in chart) Sister who is the POA will be here in the morning to discuss plan of care Problem List: 1. Acute cholecystitis Subjective Subjective: patient was visited and examined today. Complains of constant abdominal ( RUQ), 9/10 pain and mild nausea, no appetite. Had US-guided cholecyctostomy placement on 07/21 ( anticaipation for 4 - 6 w), currently on Abx ( cefteriaxone and flagyl #3), and parental pain regimen. labs are not available to review. VS: one episode of hypotension earlier this morning. remained afebrile. Cholecyctostomy drain is attached to bag and its functional; no erythema at the site. Iv fluid. No urinary cath. Review of Systems Constitutional: Reports: see HPI. Gastrointestinal: Reports: see HPI, abdominal pain, bloating, distention, nausea. Denies: constipation, diarrhea, bowel incontinence, melena, bloody stool, vomiting. Objective Last 24 Hrs of Vital Signs/I&O Vital Signs Date Time Temp Pulse Resp B/P B/P Pulse O2 O2 Flow FiO2 Mean Ox Delivery Rate 07/22 0647 98.2 79 20 140/64 92 Room Air / 2238 98.4 101 19 98/58 94 Room Air 07/21 1745 Room Air / 1528 97.9 79 18 138/70 92 / 1141 84 150/86 Intake & Output 07/22 0800 / 0000 07/21 1600 Intake Total 660 Output Total 15 Balance -15 660 Intake, IV 600 Intake, Oral 60 Number 1 Bowel Movements Output, 15 Drainage Physical Exam General Appearance: well developed/nourished, alert, awake, anxious, moderate distress Abdomen: distention, guarding, rebound, tenderness, no BS was appreciated Extremities: no edema Current Medications: Current Medications Sig/Joyce Start time Last Medication Dose Route Stop Time Status Admin Acetaminophen 650 MG Q4P PRN 07/20 1515 AC 07/22 PO 0535 Acetaminophen/ 1 TAB Q12H 07/21 1000 AC / Codeine Phosphate PO 2258 Amlodipine Besylate 5 MG DAILY 07/21 1000 AC 07/21 PO 1141 Buspirone HCl 2.5 MG QAM 07/21 1000 AC 07/21 PO 1143 Buspirone HCl 12.5 MG QPM / 2200 AC / PO 2257 Ceftriaxone Sodium 1,000 MG DAILY@1400 / 1400 AC / IV 1442 Dextrose/Sodium 1,000 ML .Q10H 07/20 1515 AC 07/21 Chloride IV 2258 Docusate Sodium 100 MG DAILY 07/21 1000 AC 07/21 PO 1141 Donepezil HCl 10 MG 1700 07/20 1700 AC 07/21 PO 1751 Fentanyl Citrate 0 .STK-MED ONE 07/21 1556 DC .ROUTE Heparin Sodium 5,000 UNIT Q8 07/20 2200 DC 07/21 (Porcine) SC 0513 Magnesium Hydroxide 30 ML DAILY PRN 07/20 1530 AC PO Memantine 10 MG BID 07/20 2200 AC 07/21 PO 2257 Metronidazole 500 MG Q8H 07/20 2200 AC 07/22 N/A 1 UNIT IV 0519 Midazolam HCl 0 .STK-MED ONE 07/21 1556 DC .ROUTE Morphine Sulfate 2 MG Q8H PRN 07/20 1930 AC IV Ondansetron HCl 4 MG Q8P PRN 07/20 1515 AC IV Pantoprazole Sodium 40 MG DAILY 07/21 1000 AC 07/21 IV 1142 Paroxetine HCl 20 MG DAILY 07/21 1000 AC 07/21 PO 1141 Patient Medication 1 ED ONE ONE 07/21 1600 DC Teaching ED 07/21 1601 Results Last 24 Hrs Lab/Yanick Results: Laboratory Tests 07/22/17 0716: Sodium Pending, Potassium Pending, Chloride Pending, Carbon Dioxide Pending, Anion Gap Pending, BUN Pending, Creatinine Pending, BUN/Creatinine Ratio Pending , Magnesium Pending, Total Bilirubin Pending, Direct Bilirubin Pending, AST Pending, ALT Pending, Alkaline Phosphatase Pending, Total Protein Pending, Albumin Pending, CBC w Diff Pending, WBC Pending, RBC Pending, Hgb Pending, Hct Pending, MCV Pending, MCH Pending, MCHC Pending, RDW Pending, Plt Count Pending, MPV Pending 07/21/17 1146: PT 14.2 H, INR 1.30 H Microbiology 07/21 162 BODY FLUID: Body Fluid Culture - RECD 07/22 1627 BODY FLUID: Gram Stain - RECLinda Chase MD,[facility] 07/22/17 1237: Attending MD Review Statement Attending Sign Off Attending Cosign Statement: I have: examined this patient, reviewed aval EMR data, personally reviewd images, discussd w/resident/PA/TACTICAL DEBRIEFER OFFICER, discussed mgmt plan w/meeta, discussed mgmt plan w/CM, discussed mgmt plan w/pt, agreed w/resident/PA/TACTICAL DEBRIEFER OFFICER, amended to note. Other Findings: Patient seen and examined, she denied any complaints. Patient still remains on clear liquids and her oral intake is not that great so far. Surgical team wants to transfer the patient to medicine. Vital Signs Date Time Temp Pulse Resp B/P B/P Pulse O2 O2 Flow FiO2 Mean Ox Delivery Rate 07/22 1024 79 140/64 / 0647 98.2 79 20 140/64 92 Room Air 07/22 0000 94 Room Air 07/21 2238 98.4 101 19 98/58 94 Room Air 07/21 1745 Room Air 07/21 1528 97.9 79 18 138/70 92 on exam; awake, nad. cv; s1,s2, rrr resp; clear abd; soft, tender in ruq, bs+ ext; no edema. Laboratory Tests 07/22 0716 Chemistry Sodium (137 - 145 mmol/L) 138 Potassium (3.5 - 5.1 mmol/L) 3.6 Chloride (98 - 107 mmol/L) 102 Carbon Dioxide (22 - 30 mmol/L) 27 Anion Gap (5 - 16) 9 BUN (7 - 17 mg/dL) 12 Creatinine (0.5 - 1.0 mg/dL) 0.7 Estimated GFR (>60 ml/min) > 60 BUN/Creatinine Ratio (7 - 25 %) 17.1 Magnesium (1.6 - 2.3 mg/dL) 1.9 Total Bilirubin (0.2 - 1.3 mg/dL) 0.5 Direct Bilirubin (< 0.4 mg/dL) 0.4 AST (14 - 36 U/L) 15 ALT (9 - 52 U/L) 25 Alkaline Phosphatase (<127 U/L) 149 H Total Protein (6.3 - 8.2 g/dL) 5.3 L Albumin (3.5 - 5.0 g/dL) 2.5 L Hematology CBC w Diff NO MAN DIFF REQ WBC (4.8 - 10.8 /CUMM) 8.2 RBC (4.20 - 5.40 /CUMM) 3.46 L Hgb (12.0 - 16.0 G/DL) 10.3 L Hct (37 - 47 %) 30.3 L MCV (81.0 - 99.0 FL) 87.6 MCH (27.0 - 31.0 PG) 29.9 MCHC (33.0 - 37.0 G/DL) 34.1 RDW (11.5 - 14.5 %) 14.0 Plt Count (130 - 400 /CUMM) 405 H MPV (7.4 - 10.4 FL) 7.6 Gran % (42.2 - 75.2 %) 73.8 Lymphocytes % (20.5 - 51.1 %) 14.9 L Monocytes % (1.7 - 9.3 %) 10.5 H Eosinophils % (0 - 5 %) 0.6 Basophils % (0.0 - 2.0 %) 0.2 Absolute Granulocytes (1.4 - 6.5 /CUMM) 6.1 Absolute Lymphocytes (1.2 - 3.4 /CUMM) 1.2 Absolute Monocytes (0.10 - 0.60 /CUMM) 0.9 H Absolute Eosinophils (0.0 - 0.7 /CUMM) 0 Absolute Basophils (0.0 - 0.2 /CUMM) 0 A/P; 86-year-old woman with past medical history of Alzheimer's, hypertension, major depressive disorder, GERD admitted with abdominal pain and found to have acute severe calculus cholecystitis with possible gallbladder perforation. Patient also had accelerated hypertension which was resolved after receiving her medications. Patient has been managed conservatively so far by surgery and there is a plan for possible cholecystostomy tube placement. And she status post cholecystostomy tube placement yesterday. We'll follow-up on the or cultures. Continue current antibiotics for now. Continue gentle IV hydration, clear liquid diet. We'll advance diet in the next 24 hours if patient tolerates. Continue the current medications, pain management is adequate. Please start the patient on pharmacologic DVT prophylaxis if no contraindications.
[2017-07-22 08:02] LABS: ABSOLUTE BASOPHIL COUNT 0 /CUMM (0.0-0.2); ABSOLUTE EOSINOPHIL COUNT 0 /CUMM (0.0-0.7); ABSOLUTE GRANULOCYTE CT 6.1 /CUMM (1.4-6.5); ABSOLUTE LYMPH COUNT 1.2 /CUMM (1.2-3.4); ABSOLUTE MONOCYTE COUNT 0.9 /CUMM (0.10-0.60); BASOPHIL % 0.2 % (0.0-2.0); EOSINOPHIL % 0.6 % (0-5); GRANULOCYTE % 73.8 % (42.2-75.2); HEMATOCRIT 30.3 % (37-47); MEAN CORPUSCULAR HGB 29.9 PG (27.0-31.0); MEAN CORPUSCULAR HGB CONC 34.1 G/DL (33.0-37.0); MEAN CORPUSCULAR VOLUME 87.6 FL (81.0-99.0); MEAN PLATELET VOLUME 7.6 FL (7.4-10.4); PLATELET COUNT 405 /CUMM (130-400); RED BLOOD CELL CT 3.46 /CUMM (4.20-5.40); WHITE BLOOD CELL COUNT 8.2 /CUMM (4.8-10.8)
--- NOTE | 2017-07-22 09:49 | PN- General Surgery ---
See Addendum Subjective Subjective: Patient reports abdominal pain this morning, which resolved with tylenol. She denies any nausea or vomiting. She underwent IR perc cholecystomy tube yesterday with 50 cc pus/bile drained. All questions answered about the surgical procedure she had done yesterday. Per nursing, not much of an appetite. She reports she lives at home with her and family, however lives in [facility] per piano case maker. She offers no other complaints. Objective Vital Signs and I&Os Vital Signs Date Time Temp Pulse Resp B/P B/P Pulse O2 O2 Flow FiO2 Mean Ox Delivery Rate 07/22 1024 79 140/64 07/22 0647 98.2 79 20 140/64 92 Room Air 07/22 0000 94 Room Air 07/21 2238 98.4 101 19 98/58 94 Room Air 07/21 1745 Room Air 07/21 1528 97.9 79 18 138/70 92 / 1141 84 150/86 Intake & Output 07/22 1600 07/22 0800 / 0000 / 1600 07/21 0800 07/21 0000 Intake Total 850 660 800 240 Output Total 20 15 350 Balance 830 -15 660 800 -110 Intake, IV 800 600 800 Intake, Oral 50 60 0 240 Number 0 1 Bowel Movements Output, 20 15 Drainage Output, Urine 350 Patient 145 lb Weight Weight Reported by Patient Measurement Method Physical Exam: Gen - seems pleasantly confused, in NAD Cardiac - S1S2 noted Lungs - CTAB Abd - Soft, obese, javi tube sutured in place with nonpurulent yellow/green bile in the pouch, moderately tender with voluntary guarding in RUQ and epigastric region, bowel sounds present Ext - Alps in place, no edema or calf tenderness Current Medications: Current Medications Sig/Joyce Start time Last Medication Dose Route Stop Time Status Admin Acetaminophen 650 MG Q4P PRN 07/20 1515 AC 07/22 PO 0535 Acetaminophen/ 1 TAB Q12H 07/21 1000 AC 07/22 Codeine Phosphate PO 1025 Amlodipine Besylate 5 MG DAILY 07/21 1000 AC 07/22 PO 1024 Buspirone HCl 2.5 MG QAM 07/21 1000 AC 07/22 PO 1025 Buspirone HCl 12.5 MG QPM 07/20 2200 AC 07/21 PO 2257 Ceftriaxone Sodium 1,000 MG DAILY@1400 07/21 1400 AC 07/21 IV 1442 Dextrose/Sodium 1,000 ML .Q10H 07/20 1515 AC 07/22 Chloride IV 1039 Docusate Sodium 100 MG DAILY 07/21 1000 AC 07/22 PO 1023 Donepezil HCl 10 MG 1700 07/20 1700 AC 07/21 PO 1751 Fentanyl Citrate 0 .STK-MED ONE 07/21 1556 DC .ROUTE Heparin Sodium 5,000 UNIT Q8 07/20 2200 DC 07/21 (Porcine) SC 0513 Magnesium Hydroxide 30 ML DAILY PRN 07/20 1530 AC PO Memantine 10 MG BID 07/20 2200 AC 07/22 PO 1024 Metronidazole 500 MG Q8H 07/20 2200 AC 07/22 N/A 1 UNIT IV 0519 Midazolam HCl 0 .STK-MED ONE 07/21 1556 DC .ROUTE Morphine Sulfate 2 MG Q8H PRN 07/20 1930 AC IV Ondansetron HCl 4 MG Q8P PRN 07/20 1515 AC IV Pantoprazole Sodium 40 MG DAILY 07/21 1000 AC 07/22 IV 1025 Paroxetine HCl 20 MG DAILY 07/21 1000 AC 07/22 PO 1024 Patient Medication 1 ED ONE ONE 07/21 1600 DC Teaching ED 07/21 1601 Results Last 48 Hours of Labs: Laboratory Tests 07/22 07/21 0716 1146 Chemistry Sodium (137 - 145 mmol/L) 138 Potassium (3.5 - 5.1 mmol/L) 3.6 Chloride (98 - 107 mmol/L) 102 Carbon Dioxide (22 - 30 mmol/L) 27 Anion Gap (5 - 16) 9 BUN (7 - 17 mg/dL) 12 Creatinine (0.5 - 1.0 mg/dL) 0.7 Estimated GFR (>60 ml/min) > 60 BUN/Creatinine Ratio (7 - 25 %) 17.1 Magnesium (1.6 - 2.3 mg/dL) 1.9 Total Bilirubin (0.2 - 1.3 mg/dL) 0.5 Direct Bilirubin (< 0.4 mg/dL) 0.4 AST (14 - 36 U/L) 15 ALT (9 - 52 U/L) 25 Alkaline Phosphatase (<127 U/L) 149 H Total Protein (6.3 - 8.2 g/dL) 5.3 L Albumin (3.5 - 5.0 g/dL) 2.5 L Coagulation PT (9.4 - 12.5 SEC) 14.2 H INR (0.90 - 1.19) 1.30 H Hematology CBC w Diff NO MAN DIFF REQ WBC (4.8 - 10.8 /CUMM) 8.2 RBC (4.20 - 5.40 /CUMM) 3.46 L Hgb (12.0 - 16.0 G/DL) 10.3 L Hct (37 - 47 %) 30.3 L MCV (81.0 - 99.0 FL) 87.6 MCH (27.0 - 31.0 PG) 29.9 MCHC (33.0 - 37.0 G/DL) 34.1 RDW (11.5 - 14.5 %) 14.0 Plt Count (130 - 400 /CUMM) 405 H MPV (7.4 - 10.4 FL) 7.6 Gran % (42.2 - 75.2 %) 73.8 Lymphocytes % (20.5 - 51.1 %) 14.9 L Monocytes % (1.7 - 9.3 %) 10.5 H Eosinophils % (0 - 5 %) 0.6 Basophils % (0.0 - 2.0 %) 0.2 Absolute Granulocytes (1.4 - 6.5 /CUMM) 6.1 Absolute Lymphocytes (1.2 - 3.4 /CUMM) 1.2 Absolute Monocytes (0.10 - 0.60 /CUMM) 0.9 H Absolute Eosinophils (0.0 - 0.7 /CUMM) 0 Absolute Basophils (0.0 - 0.2 /CUMM) 0 03/05 03/04 0635 1130 Chemistry Sodium (137 - 145 mmol/L) 139 138 Potassium (3.5 - 5.1 mmol/L) 3.9 3.8 Chloride (98 - 107 mmol/L) 101 98 Carbon Dioxide (22 - 30 mmol/L) 25 28 Anion Gap (5 - 16) 13 12 BUN (7 - 17 mg/dL) 20 H 29 H Creatinine (0.5 - 1.0 mg/dL) 0.8 0.8 Estimated GFR (>60 ml/min) > 60 > 60 BUN/Creatinine Ratio (7 - 25 %) 25.0 36.3 H Glucose (65 - 99 mg/dL) 109 H Calcium (8.4 - 10.2 mg/dL) 8.8 Total Bilirubin (0.2 - 1.3 mg/dL) 1.3 1.2 Direct Bilirubin (< 0.4 mg/dL) 0.9 H AST (14 - 36 U/L) 26 41 H ALT (9 - 52 U/L) 36 42 Alkaline Phosphatase (<127 U/L) 173 H 171 H Troponin I (< 0.11 ng/ml) < 0.01 Total Protein (6.3 - 8.2 g/dL) 6.1 L 6.5 Albumin (3.5 - 5.0 g/dL) 2.9 L 3.2 L Globulin (1.9 - 4.2 gm/dL) 3.3 Albumin/Globulin Ratio (1.1 - 2.2 %) 1.0 L Lipase (23 - 300 U/L) 262 Hematology CBC w Diff MAN DIFF ORDERED MAN DIFF ORDERED WBC (4.8 - 10.8 /CUMM) 9.9 13.1 H RBC (4.20 - 5.40 /CUMM) 3.55 L 3.56 L Hgb (12.0 - 16.0 G/DL) 10.6 L 10.6 L Hct (37 - 47 %) 31.4 L 31.4 L MCV (81.0 - 99.0 FL) 88.3 88.3 MCH (27.0 - 31.0 PG) 30.0 29.8 MCHC (33.0 - 37.0 G/DL) 33.9 33.8 RDW (11.5 - 14.5 %) 14.3 13.6 Plt Count (130 - 400 /CUMM) 391 414 H MPV (7.4 - 10.4 FL) 8.1 8.1 Gran % (42.2 - 75.2 %) 83.8 H 89.2 H Lymphocytes % (20.5 - 51.1 %) 8.1 L 5.1 L Monocytes % (1.7 - 9.3 %) 7.7 5.4 Eosinophils % (0 - 5 %) 0.2 0.2 Basophils % (0.0 - 2.0 %) 0.2 0.1 Absolute Granulocytes (1.4 - 6.5 /CUMM) 8.3 H 11.7 H Segmented Neutrophils (42.2 - 75.2 %) 80 H Band Neutrophils (0.0 - 5.0 %) 8 H Absolute Lymphocytes (1.2 - 3.4 /CUMM) 0.8 L 0.7 L Lymphocytes (20.5 - 51.1 %) 6 L Monocytes (1.7 - 9.3 %) 4 Absolute Monocytes (0.10 - 0.60 /CUMM) 0.8 H 0.7 H Eosinophils (0 - 5.0 %) 1 Absolute Eosinophils (0.0 - 0.7 /CUMM) 0 0 Basophils (0.0 - 2.0 %) 1 Absolute Basophils (0.0 - 0.2 /CUMM) 0 0 Platelet Estimate (ADEQUATE) ADEQUATE ADEQUATE Hypochromic-Microcytic 1+ 1+ Anisocytosis 1+ 1+ Urines Urinalysis MOD H Urine Color (YEL,AMB,STR) YEL Urine Clarity (CLEAR) HAZY H Urine pH (5.0 - 8.0) 6.0 Ur Specific [place] (1.001 - 1.035) 1.025 Urine Protein (NEG,<30 MG/DL) 100 H Urine Ketones (NEG) NEG Urine Nitrite (NEG) NEG Urine Bilirubin (NEG) NEG@ICTO Urine Urobilinogen (0.1 - 1.0 EU/dl) 4.0 H Ur Leukocyte Esterase (NEG) NEG Ur Microscopic SEDIMENT EXAMINED Urine RBC (0 - 5 /HPF) 1-3 Urine WBC (0 - 2 /HPF) 1-3 H Ur Epithelial Cells (NONE,FEW) FEW Urine Bacteria (NEG/NONE) MOD H Hyaline Casts (0/LPF) RARE H Urine Hemoglobin (NEG) SMALL H Urine Glucose (N MG/DL) NEG Assessment/Plan Assessment/Plan 86 F PPD 1 s/p IR perc javi tube secondary to perforated cholecystitis, poor appetite, cultures pending Transfer to medicine since not operative candidate Cont clears, IVF Cont IV abx - kalin/flag, f/u cultures Pain meds prn, wean IV Drain to remain in place for 4-6 weeks Ok to resume DVT ppx - hsq Resume home meds GI ppx on board Will likely require VNA services upon d/c for drain care Will continue to follow D/w Dr. Delgado Core Measures Venous Thromboembolism VTE Risk Factors Acute Medical Illness No Mechanical VTE Prophylaxis d/t N/A MechProphylax Ordered No VTE Pharm Prophylaxis d/t NA PharmProphylax ordered
[2017-07-22 14:03] VITALS: BP 132/62
[2017-07-22 22:31] VITALS: BP 114/61
[2017-07-23 05:59] VITALS: BP 132/78
--- NOTE | 2017-07-23 07:56 | PN- General Surgery ---
Subjective Subjective: Patient reports pain is controlled, denies fever, chills. Tolerating clears. Requesting solid food. Passing gas and moving her bowels. Objective Vital Signs and I&Os Vital Signs Date Time Temp Pulse Resp B/P B/P Pulse O2 O2 Flow FiO2 Mean Ox Delivery Rate 07/23 0559 99.5 80 22 132/78 94 Room Air 07/22 2231 99.1 86 20 114/61 92 Room Air 07/22 1403 99.5 85 20 132/62 92 03/06 1024 79 140/64 Intake & Output 07/23 1600 07/23 0800 07/23 0000 07/22 1600 07/22 0800 / 0000 Intake Total 231 328 8601 850 Output Total 340 440 750 20 15 Balance 580 80 360 830 -15 Intake, IV 800 400 750 800 Intake, Oral 120 120 360 50 Number 2 0 2 0 1 Bowel Movements Output, 40 40 20 15 Drainage Output, Urine 300 400 750 Patient 145 lb Weight Physical Exam: Gen - Pleasantly confused in NAD Cardiac - S1S2 noted Lungs - CTAB Abd - Soft, obese, javi tube sutured in place with seropurulent drainage in the pouch, 40 ccs in the last shift, appropriately tender, bowel sounds present Ext - Alps in place, no edema or calf tenderness Assessment/Plan Assessment/Plan 86 F PPD 2 s/p IR perc javi tube secondary to perforated cholecystitis, tolerating clears with improved pain. Preliminary cultures are growing alpha strep. Advance to low fat as tolerated IV abx - kalin/flag until cxs are finalized Pain meds prn Drain to remain in place for 4-6 weeks Keep drain open to external gravity drainage Flush drain w/ 10 cc tid normal saline DVT ppx - hsq GI ppx on board Follow up in 2-[address] Delgado for reevaluation No further recommendations D/w Dr. Delgado Core Measures Venous Thromboembolism VTE Risk Factors Acute Medical Illness No Mechanical VTE Prophylaxis d/t N/A MechProphylax Ordered No VTE Pharm Prophylaxis d/t NA PharmProphylax ordered
[2017-07-23 08:09] LABS: ABSOLUTE BASOPHIL COUNT 0 /CUMM (0.0-0.2); ABSOLUTE EOSINOPHIL COUNT 0.1 /CUMM (0.0-0.7); ABSOLUTE GRANULOCYTE CT 6.2 /CUMM (1.4-6.5); ABSOLUTE LYMPH COUNT 1.3 /CUMM (1.2-3.4); ABSOLUTE MONOCYTE COUNT 0.9 /CUMM (0.10-0.60); BASOPHIL % 0.3 % (0.0-2.0); EOSINOPHIL % 0.7 % (0-5); GRANULOCYTE % 72.7 % (42.2-75.2); HEMATOCRIT 32.1 % (37-47); MEAN CORPUSCULAR HGB CONC 33.9 G/DL (33.0-37.0); MEAN CORPUSCULAR VOLUME 88.4 FL (81.0-99.0); MEAN PLATELET VOLUME 7.5 FL (7.4-10.4); PLATELET COUNT 475 /CUMM (130-400); RBC DISTRIBUTION WIDTH 14.2 % (11.5-14.5); RED BLOOD CELL CT 3.64 /CUMM (4.20-5.40); WHITE BLOOD CELL COUNT 8.5 /CUMM (4.8-10.8)
--- NOTE | 2017-07-23 09:03 | PN- Housestaff ---
Werner Lilly 07/23/17 0903: Subjective Follow-up For: S/p Percutaneous cholesystomy tube secondary to perforated cholecystitis Tele-Events Since Last Visit: Pleasantly confused. Tolerating clears with no reported pain. No fevers or chills. Review of Systems Constitutional: Reports: see HPI. Objective Last 24 Hrs of Vital Signs/I&O Vital Signs Date Time Temp Pulse Resp B/P B/P Pulse O2 O2 Flow FiO2 Mean Ox Delivery Rate 07/23 0559 99.5 80 22 132/78 94 Room Air 07/22 2231 99.1 86 20 114/61 92 Room Air 07/22 1403 99.5 85 20 132/62 92 03/ 1024 79 140/64 Intake & Output 07/23 1600 07/23 0800 07/23 0000 Intake Total 920 520 Output Total 340 440 Balance 580 80 Intake, IV 800 400 Intake, Oral 120 120 Number 2 0 Bowel Movements Output, 40 40 Drainage Output, Urine 300 400 Physical Exam General Appearance: Alert, Cooperative HEENT: Atraumatic Cardiovascular: Regular Rate, Normal S1, Normal S2 Lungs: Clear to Auscultation, Normal Air Movement Abdomen: Soft, No Tenderness, Ariella tube in place with serosang drainage in the pouch. Extremities: No Clubbing, No Cyanosis, No Edema Current Medications: Current Medications Sig/Joyce Start time Last Medication Dose Route Stop Time Status Admin Acetaminophen 650 MG Q4P PRN / 1515 AC 07/23 PO 0507 Acetaminophen/ 1 TAB Q12H / 1000 AC 07/22 Codeine Phosphate PO 2101 Amlodipine Besylate 5 MG DAILY 07/21 1000 AC 07/22 PO 1024 Buspirone HCl 2.5 MG QAM / 1000 AC 07/22 PO 1025 Buspirone HCl 12.5 MG QPM / 2200 AC 07/22 PO 2100 Ceftriaxone Sodium 1,000 MG DAILY@1400 / 1400 AC 07/22 IV 1500 Dextrose/Sodium 1,000 ML .Q10H / 1515 AC 07/23 Chloride IV 0018 Docusate Sodium 100 MG DAILY /05 1000 AC 07/22 PO 1023 Donepezil HCl 10 MG 1700 03/04 1700 AC 03/ PO 1647 Heparin Sodium 5,000 UNIT Q8 07/22 2200 AC 07/23 (Porcine) SC 0508 Magnesium Hydroxide 30 ML DAILY PRN 07/20 1530 AC PO Memantine 10 MG BID 07/20 2200 AC 07/22 PO 2100 Metronidazole 500 MG Q8H 07/20 2199 AC 07/23 N/A 1 UNIT IV 0507 Morphine Sulfate 2 MG Q8H PRN 07/20 1930 AC IV Ondansetron HCl 4 MG Q8P PRN 07/20 1515 AC IV Pantoprazole Sodium 40 MG DAILY 07/21 1000 AC 07/22 IV 1025 Paroxetine HCl 20 MG DAILY 07/21 1000 AC 07/22 PO 1024 Last 24 Hrs of Lab/Yanick Results Last 24 Hrs of Labs/Mics: Laboratory Tests 07/23/17 0650: Anion Gap 10, Estimated GFR > 60, BUN/Creatinine Ratio 11.4, CBC w Diff NO MAN DIFF REQ, RBC 3.64 L, MCV 88.4, MCH 30.0, MCHC 33.9, RDW 14.2, MPV 7.5, Gran % 72.7, Lymphocytes % 15.8 L, Monocytes % 10.5 H, Eosinophils % 0.7, Basophils % 0.3, Absolute Granulocytes 6.2, Absolute Lymphocytes 1.3, Absolute Monocytes 0.9 H, Absolute Eosinophils 0.1, Absolute Basophils 0 Assessment/Plan Assessment: 86-year-old woman was admitted to general surgery service for a perforated cholecystitis requiring cholecystostomy tube placement, on ceftriaxone and Flagyl, recent wound cultures growing alpha strep, afebrile, normal white count and now tolerating clear liquid diet. 1. Will advance diet as tolerated. Discontinue fluids. 2. Management of ariella tube per surgery 3. Continue Ceftriaxone and Flagyl. Await final S&C. 4. Pain well controlled with Tylenol#3. 5. Transition to PO PPI. 6. Continue current anti-hypertensive regimen. 7. Continue meds for dementia. DVT ppx - Heparin sq. DNR/DNI Clear liquid diet. Problem List: 1. Acute cholecystitis Pain Ratin Pain Location: Abdomen Pain Goal: Remain pain free Pain Plan: Tylenol#3 Tomorrow's Labs & Rationales: S/p Ariella tube placement On antibiotics Lorna Chase MD 07/23/17 1151: Attending MD Review Statement Attending Statement Attending MD Statement: examined this patient, discuss w/resident/PA/OCCUP THER, agreed w/resident/PA/OCCUP THER, discussed with family, reviewed EMR data (avail), discussed with nursing, discussed with case mgmt, reviewed images, amended to note Attending Assessment/Plan: Patient seen and examined, denies any complaints. She is pleasantly confused. She is able to tolerate clear liquid diet. Vital Signs Date Time Temp Pulse Resp B/P B/P Pulse O2 O2 Flow FiO2 Mean Ox Delivery Rate 07/23 0959 80 132/78 07/23 0559 99.5 80 22 132/78 94 Room Air 07/22 2231 99.1 86 20 114/61 92 Room Air 07/22 1403 99.5 85 20 132/62 92 on exam; awake, nad. cv; s1,s2, rrr resp; clear abd; soft, nt, bs+, + cholecustostomy tube in place. ext; no edema. Laboratory Tests 07/23 0650 Chemistry Sodium (137 - 145 mmol/L) 139 Potassium (3.5 - 5.1 mmol/L) 3.6 Chloride (98 - 107 mmol/L) 100 Carbon Dioxide (22 - 30 mmol/L) 29 Anion Gap (5 - 16) 10 BUN (7 - 17 mg/dL) 8 Creatinine (0.5 - 1.0 mg/dL) 0.7 Estimated GFR (>60 ml/min) > 60 BUN/Creatinine Ratio (7 - 25 %) 11.4 Hematology CBC w Diff NO MAN DIFF REQ WBC (4.8 - 10.8 /CUMM) 8.5 RBC (4.20 - 5.40 /CUMM) 3.64 L Hgb (12.0 - 16.0 G/DL) 10.9 L Hct (37 - 47 %) 32.1 L MCV (81.0 - 99.0 FL) 88.4 MCH (27.0 - 31.0 PG) 30.0 MCHC (33.0 - 37.0 G/DL) 33.9 RDW (11.5 - 14.5 %) 14.2 Plt Count (130 - 400 /CUMM) 475 H MPV (7.4 - 10.4 FL) 7.5 Gran % (42.2 - 75.2 %) 72.7 Lymphocytes % (20.5 - 51.1 %) 15.8 L Monocytes % (1.7 - 9.3 %) 10.5 H Eosinophils % (0 - 5 %) 0.7 Basophils % (0.0 - 2.0 %) 0.3 Absolute Granulocytes (1.4 - 6.5 /CUMM) 6.2 Absolute Lymphocytes (1.2 - 3.4 /CUMM) 1.3 Absolute Monocytes (0.10 - 0.60 /CUMM) 0.9 H Absolute Eosinophils (0.0 - 0.7 /CUMM) 0.1 Absolute Basophils (0.0 - 0.2 /CUMM) 0 A/P; 86-year-old woman with past medical history of Alzheimer's, hypertension, major depressive disorder, GERD admitted with abdominal pain and found to have acute severe calculus cholecystitis with possible gallbladder perforation. Patient also had accelerated hypertension which was resolved after receiving her medications. Patient has been managed conservatively so far by surgery and there is a plan for possible cholecystostomy tube placement. And she status post cholecystostomy tube placement two days ago. OR cultures growing alpha strep and diphtheroids. Patient currently on ceftriaxone and Flagyl. We'll switch to oral antibiotics once cultures finalized. Will advance diet slowly to full liquid and then to low-fat diet as patient tolerates. Blood pressure is well controlled. If patient tolerates diet then we can stop the IV fluids. DVT prophylaxis: Heparin subcutaneous. Please obtain PT evaluation. If patient tolerates diet well then likely she can be discharged in the next 24- 48 hours back to her fpc on oral antibiotics. Discussed with patient's sister (conservator) over the phone.
[2017-07-23 14:18] VITALS: BP 118/50
[2017-07-23 20:14] VITALS: BP 128/53
[2017-07-23] MEDS ORDERED: PROTONIX40 M3 PO (20:43)
[2017-07-24 07:02] VITALS: BP 124/58
--- NOTE | 2017-07-24 07:14 | Patient Discharge Instructions ---
Discharge Instructions General Discharge Information You were seen/treated for: Perforated cholecystitis S/p IR perc javi tube secondary to perforated cholecystitis Watch for these problems: Worsening pain Fevers, Chills Unstable blood pressure Abnormal increase in drainage from Javi tube Special Instructions: Daily dry dressing changes. Empty drain daily as needed. Drain to remain in place for 4-6 weeks. Keep drain open to external gravity drainage. Flush drain w/ 10 cc tid normal saline Follow up in 2-[address] Delgado for reevaluation. Follow up with PCP as an outpatient in 1-2 weeks. Activity Full Activity/No Limits: Yes Acute Coronary Syndrome Inclusion Criteria At DC or during hospital stay patient has or had the following: ACS DIAGNOSIS No Discharge Core Measures Meds if any: Prescribed or Continued at Discharge Meds if any: NOT Prescribed or Continued at Discharge Congestive Heart Failure Inclusion Criteria At DC or during hospital stay patient has or had the following: CHF DIAGNOSIS No Discharge Core Measures Meds if any: Prescribed or Continued at Discharge Meds if any: NOT Prescribed or Continued at Discharge Cerebrovascular accident Inclusion Criteria At DC or during hospital stay patient has or had the following: CVA/TIA Diagnosis No Discharge Core Measures Meds if any: Prescribed or Continued at Discharge Meds if any: NOT Prescribed or Continued at Discharge Venous thromboembolism Inclusion Criteria VTE Diagnosis No VTE Type NONE VTE Confirmed by (Test) NONE Discharge Core Measures - Per Current guidelines, there needs to be overlap - treatment for the first 5 days of Warfarin therapy. - If discharged on Warfarin prior to 5 days of - overlap therapy, the patient will need to be - assessed for post discharge needs including - *Post discharge parental anticoagulation - *Warfarin and/or parental anticoagulation education - *Follow up date to check INR post discharge At least 5 days overlap therapy as Inpatient No Meds if any: Prescribed or Continued at Discharge Note: Overlap Therapy is Warfarin and Anticoagulant Meds if any: NOT Prescribed or Continued at Discharge
[2017-07-24] MEDS ORDERED: ZOFRAN ODT4 M1 SL ×2 (07:18→14:31)
--- NOTE | 2017-07-24 07:30 | Discharge Summary ---
Visit Information Visit Dates Admission Date: 07/20/17 Discharge Date: 07/24/2017 Hospital Course Course Attending Physician: Lorna Chase MD Primary Care Physician: Hudson Matias MD Hospital Course: Ms. Hart is a 86-year-old woman past medical history of Alzheimer's, hypertension, depression, GERD and COPD who was brought in by ambulance from [facility]. At the time of presentation to ED, patient was combining of 10/ 10 abdominal pain. She was afebrile, pulse was 116, respiratory rate 24 and a blood pressure of 146/70. The patient was initially admitted to general medicine service for medical management with IV antibiotics and the patient was deemed ineligible for surgery. Patient was started on IV Rocephin and Flagyl and all her home medications were resumed. CT scan - Severe calculous cholecystitis, ?perforation, severe inflammaton extending to hepatic flexure with no clear plane between gallbladder and colon. On 07/21/2017, patient underwent successful ultrasound-guided placement of a cholecystostomy tube by interventional radiology. Patient tolerated the procedure well, started tolerating diet and was advanced to low-fat diet on 07/23/2017. She continues to be on oral PPI and will be discharged on oral Zofran. Microbiology-patient grew alpha strep. Alpha strep has no sensitivity guideline. Since patient is pen allergic, we will discharge the patient on Clindamycin to complete a total 10 day course. Outpatient follow up with Dr. Delgado as an outpatient. Allergies: Coded Allergies: Penicillins (UNKNOWN 12/09/16) Significant Procedures: Cholesystostomy tube placement Disposition Summary Disposition Principal Diagnosis: Gall bladder perforation Additional Diagnosis: S/p Cholesystostomy tube placement Discharge Disposition: SNF Discharge Instructions General Discharge Information Code Status: Do Not Resucitate/Intubat Patient's Diet: Low fat diet Patient's Activity: As tolerated. Discharge to [facility]. Follow-Up Instructions/Appts: Follow up in 2-[address] Delgado for reevaluation. Follow up with PCP as an outpatient in 1-2 weeks. Daily dry dressing changes. Empty drain daily as needed. Medications at Discharge Discharge Medications: Stop taking the following medications: Omeprazole (Omeprazole) 10 MG CAPSULE.DR WISDOM 1600 Qty = 30 Continue taking these medications: Folic Acid (Folic Acid) 0.8 MG TABLET 1 Tablet ORAL DAILY Docusate Sodium (Colace) 100 MG CAPSULE 1 Capsule ORAL DAILY Cyanocobalamin (Vitamin B-12) 1,000 MCG TABLET 1 Tablet ORAL Every 3 days Amlodipine Besylate (Amlodipine Besylate) 5 MG TABLET 1 Tablet ORAL DAILY Qty = 30 Paroxetine HCl (Paroxetine HCl) 20 MG TABLET 1 Tablet ORAL DAILY Qty = 30 Acetaminophen With Codeine (Acetaminophen-Cod #3 Tablet) 300 MG-30 MG TABLET 1 Tablet ORAL Q12H Qty = 60 Donepezil HCl (Donepezil HCl) 10 MG TABLET 1 Tablet ORAL 5 PM Qty = 30 Memantine HCl (Namenda XR) 28 MG CAP.SPR.24 1 Capsule ORAL TAKE AT BEDTIME Qty = 14 Buspirone HCl (Buspirone HCl) 5 MG TABLET 0.5 Tablet ORAL Every Morning Buspirone HCl (Buspirone HCl) 5 MG TABLET 12.5 Milligram ORAL Every night Nitroglycerin (Nitrostat) 0.3 MG TAB.SUBL 1 Tablet SUBLINGUAL As Directed as needed for CHEST PAIN Magnesium Hydroxide (Milk Of Magnesia) 400 MG/5 ML ORAL.SUSP 30 Milliliters ORAL DAILY as needed for CONSTIPATION Bisacodyl (Dulcolax) 10 MG SUPP.RECT 1 Suppository RECTAL As Directed as needed for CONSTIPATION Na Phos,M-B/Na Phos,Di-Ba (Fleet Enema) 19 GRAM-7 GRAM/118 ML ENEMA 1 Enema RECTAL DAILY as needed for CONSTIPATION Mag Hydrox/Al Hydrox/Simeth (Antacid Maximum Strength Liq) 400 MG-400 MG-40 MG/5 ML ORAL.SUSP 30 Milliliters ORAL THREE TIMES DAILY as needed for EPIGASTRIC/GAS PAIN Acetaminophen (Tylenol) 325 MG TABLET 2 Tablet ORAL Q4H as needed for PAIN/TEMP>100 Start taking the following new medications: Pantoprazole Sodium (Protonix) 40 MG TABLET.DR 1 Tablet ORAL DAILY Qty = 30 No Refills Ondansetron (Zofran Odt) 4 MG TAB.RAPDIS 1 Tablet SUBLINGUAL THREE TIMES DAILY Qty = 15 No Refills Clindamycin HCl (Cleocin HCl) 300 MG CAPSULE 1 Capsule ORAL EVERY SIX HOURS Qty = 24 No Refills Instructions: PLEASE START TAKING ON 07/25/2017 AND TAKE TILL 07/30/2017. Copies To: Danny DO,Anam Attending MD Review Statement Documenting Attending: Salvatore YOUNG,Lorna
--- NOTE | 2017-07-24 09:14 | PN- Housestaff ---
Werner Lilly 07/24/17 0913: Subjective Follow-up For: S/p Percutaneous cholesystomy tube secondary to perforated cholecystitis Subjective: Pleasantly confused. Tolerating low-fat diet with no reported pain. No nausea or vomiting. No fevers or chills. Review of Systems Constitutional: Reports: see HPI. Objective Last 24 Hrs of Vital Signs/I&O Vital Signs Date Time Temp Pulse Resp B/P B/P Pulse O2 O2 Flow FiO2 Mean Ox Delivery Rate 07/24 701 98.3 79 20 124/58 92 07/23 2013 98.3 85 20 128/53 94 Room Air 07/23 1418 98.2 79 20 118/50 94 Room Air 07/23 0959 80 132/78 Intake & Output 07/24 1600 07/24 0800 07/24 0000 Intake Total 900 Output Total 30 100 Balance 870 -100 Intake, IV 900 Number 1 Bowel Movements Output, 30 Drainage Output, Urine 100 Physical Exam General Appearance: Alert, Cooperative, No Acute Distress (PLEASANTLY CONFUSED) Cardiovascular: Regular Rate, Normal S1, Normal S2 Lungs: Clear to Auscultation, Normal Air Movement Abdomen: Normal Bowel Sounds, Soft, Ariella-tube in place with serous drainage in the pouch. Extremities: No Clubbing, No Cyanosis, No Edema Current Medications: Current Medications Sig/Joyce Start time Last Medication Dose Route Stop Time Status Admin Acetaminophen 650 MG .STK-MED ONE 07/23 1158 DC PO 07/23 1159 Acetaminophen 650 MG Q4P PRN / 1515 AC 07/23 PO 1220 Acetaminophen/ 1 TAB Q12H 07/21 1000 AC 07/23 Codeine Phosphate PO 2148 Amlodipine Besylate 5 MG DAILY 07/21 1000 AC 07/23 PO 0959 Buspirone HCl 2.5 MG QAM / 1000 AC / PO 1000 Buspirone HCl 12.5 MG QPM / 2200 AC 07/23 PO 2135 Ceftriaxone Sodium 1,000 MG DAILY@1400 / 1400 AC 07/23 IV 1500 Dextrose/Sodium 1,000 ML .Q10H / 1515 AC 03 Chloride IV 2350 Docusate Sodium 100 MG DAILY / 1000 AC 07/23 PO 0959 Donepezil HCl 10 MG 1700 / 1700 AC 03/ PO 1609 Heparin Sodium 5,000 UNIT Q8 07/22 2200 AC 07/23 (Porcine) SC 2135 Magnesium Hydroxide 30 ML DAILY PRN 07/20 1530 AC PO Memantine 10 MG BID 07/20 220 AC 07/23 PO 2134 Metronidazole 500 MG Q8H 07/20 2200 AC 07/24 N/A 1 UNIT IV 0537 Morphine Sulfate 2 MG Q8H PRN 07/20 1930 AC IV Omeprazole 40 MG DAILY AC 07/24 0715 AC PO Ondansetron HCl 4 MG Q8P PRN 07/20 1515 AC IV Pantoprazole Sodium 40 MG DAILY 07/21 1000 DC 07/23 IV 0959 Paroxetine HCl 20 MG DAILY 07/21 1000 AC 07/23 PO 1000 Patient Medication 1 ED ONE ONE 07/23 1030 DC 07/23 Teaching ED 07/23 1031 1219 Assessment/Plan Assessment: 86-year-old woman was admitted to general surgery service for a perforated cholecystitis requiring cholecystostomy tube placement, on ceftriaxone and Flagyl, recent wound cultures growing alpha strep, afebrile, normal white count and now tolerating low-fat diet. 1. Diet advance to low-fat, tolerating well. Discontinue fluids. 2. Management of ariella tube per surgery. Outpatient follow-up in 2-[address] Delgado. 3. Continue Ceftriaxone and Flagyl. Await final S&C. 4. Pain well controlled with Tylenol#3. 5. By mouth PPI. 6. Continue current anti-hypertensive regimen. 7. Continue meds for dementia. DVT ppx - Heparin sq. DNR/DNI Low-fat diet. Problem List: 1. Acute cholecystitis Pain Ratin Pain Location: Abdomen Pain Goal: Remain pain free Pain Plan: Tylenol#3 when necessary. Tomorrow's Labs & Rationales: Not needed Salvatore YOUNG,Lorna 07/24/17 1159: Attending MD Review Statement Attending Statement Attending MD Statement: examined this patient, discuss w/resident/PA/COMB CAPPER, agreed w/resident/PA/COMB CAPPER, discussed with family, reviewed EMR data (avail), discussed with nursing, discussed with case mgmt, reviewed images, amended to note Attending Assessment/Plan: Patient seen and examined, denies any complaints. Denies any pain. Tolerating low-fat diet well. Cholecystostomy tube is draining but the drainage has been decreasing. Vital Signs Date Time Temp Pulse Resp B/P B/P Pulse O2 O2 Flow FiO2 Mean Ox Delivery Rate 07/25 951 82 124/56 07/24 701 98.3 79 20 124/58 92 07/23 2013 98.3 85 20 128/53 94 Room Air 07/23 1418 98.2 79 20 118/50 94 Room Air on exam; awake, confused. cv; s1, s2, rrr resp; clear abd; soft, slightly tender at the cholcystostomy tube site, bs+ ext; no edema Laboratory Tests 07/24 929 Chemistry Sodium (137 - 145 mmol/L) 141 Potassium (3.5 - 5.1 mmol/L) 3.3 L Chloride (98 - 107 mmol/L) 103 Carbon Dioxide (22 - 30 mmol/L) 28 Anion Gap (5 - 16) 10 BUN (7 - 17 mg/dL) 6 L Creatinine (0.5 - 1.0 mg/dL) 0.7 Estimated GFR (>60 ml/min) > 60 BUN/Creatinine Ratio (7 - 25 %) 8.6 Hematology CBC w Diff NO MAN DIFF REQ WBC (4.8 - 10.8 /CUMM) 8.6 RBC (4.20 - 5.40 /CUMM) 3.60 L Hgb (12.0 - 16.0 G/DL) 10.4 L Hct (37 - 47 %) 31.8 L MCV (81.0 - 99.0 FL) 88.3 MCH (27.0 - 31.0 PG) 29.0 MCHC (33.0 - 37.0 G/DL) 32.8 L RDW (11.5 - 14.5 %) 14.1 Plt Count (130 - 400 /CUMM) 522 H MPV (7.4 - 10.4 FL) 6.9 L Gran % (42.2 - 75.2 %) 72.3 Lymphocytes % (20.5 - 51.1 %) 16.8 L Monocytes % (1.7 - 9.3 %) 9.8 H Eosinophils % (0 - 5 %) 0.8 Basophils % (0.0 - 2.0 %) 0.3 Absolute Granulocytes (1.4 - 6.5 /CUMM) 6.2 Absolute Lymphocytes (1.2 - 3.4 /CUMM) 1.4 Absolute Monocytes (0.10 - 0.60 /CUMM) 0.8 H Absolute Eosinophils (0.0 - 0.7 /CUMM) 0.1 Absolute Basophils (0.0 - 0.2 /CUMM) 0 A/P; 86-year-old woman with past medical history of Alzheimer's, hypertension, major depressive disorder, GERD admitted with abdominal pain and found to have acute severe calculus cholecystitis with possible gallbladder perforation. Status post cholecystostomy tube drainage and antibiotics. So far doing well. Blood work looks good except potassium is low which has been repleted. Patient growing alpha strep and steroids from the operating room cultures. We'll discuss with infectious disease about the choice of oral antibiotics. We'll also discuss with surgical PA about the cholecystostomy tube care and instructions. Patient is otherwise medically stable for discharge back to her correction today I discussed her plan of care with patient's sister ( POA).
[2017-07-24 09:45] LABS: ABSOLUTE BASOPHIL COUNT 0 /CUMM (0.0-0.2); ABSOLUTE EOSINOPHIL COUNT 0.1 /CUMM (0.0-0.7); ABSOLUTE GRANULOCYTE CT 6.2 /CUMM (1.4-6.5); ABSOLUTE LYMPH COUNT 1.4 /CUMM (1.2-3.4); ABSOLUTE MONOCYTE COUNT 0.8 /CUMM (0.10-0.60); BASOPHIL % 0.3 % (0.0-2.0); EOSINOPHIL % 0.8 % (0-5); GRANULOCYTE % 72.3 % (42.2-75.2); HEMATOCRIT 31.8 % (37-47); MEAN CORPUSCULAR HGB CONC 32.8 G/DL (33.0-37.0); MEAN CORPUSCULAR VOLUME 88.3 FL (81.0-99.0); MEAN PLATELET VOLUME 6.9 FL (7.4-10.4); PLATELET COUNT 522 /CUMM (130-400); RBC DISTRIBUTION WIDTH 14.1 % (11.5-14.5); WHITE BLOOD CELL COUNT 8.6 /CUMM (4.8-10.8)
[2017-07-24] MEDS ORDERED: CLEOCIN HCL300 M1 PO (13:45)
[2017-07-24] MEDS ORDERED: ACIDOPHILUS1 EACH PO (14:30)
[2017-07-24 14:44] VITALS: BP 140/52
[2017-07-24 16:58] VITALS: BP 140/52
== END 2017-07-24 17:30 | DRG 444 ==
LOC: ERH 10:44 → 2NB 15:11 → ERHI 15:11 → ENRESERV 15:23 → ENTRNSPT 16:23 → EDTRNSPTSTS 16:24 → ERHI 16:56 → 2NB 16:56 → EDTRNSPT 16:59 → CMPTRNSPT 17:09 → 2NB 07-22 10:49
PROVIDERS: Emergency Medicine; Internal Medicine Hematology & Oncology; Physician Assistant Surgical; Student in an Organized Health Care Education/Training Program
PROC: 0F9430Z Drainage of Gallbladder with Drainage Device, Percutaneous Approach (ICD-10-PCS; principal; 2017-07-21)
DX: K80.00 Calculus of gallbladder with acute cholecystitis without obstruction (principal); K82.2 Perforation of gallbladder; D64.9 Anemia, unspecified; J44.9 Chronic obstructive pulmonary disease, unspecified; N28.1 Cyst of kidney, acquired; G30.9 Alzheimer's disease, unspecified; F02.80 Dementia in other diseases classified elsewhere, unspecified severity, without behavioral disturbance, psychotic disturbance, mood disturbance, and anxiety; F34.1 Dysthymic disorder; I10 Essential (primary) hypertension; F32.9 Major depressive disorder, single episode, unspecified; Z88.0 Allergy status to penicillin; K21.9 Gastro-esophageal reflux disease without esophagitis; M19.90 Unspecified osteoarthritis, unspecified site; E53.9 Vitamin B deficiency, unspecified; F41.9 Anxiety disorder, unspecified; F32.89 Other specified depressive episodes; F10.20 Alcohol dependence, uncomplicated; F17.210 Nicotine dependence, cigarettes, uncomplicated; Z66 Do not resuscitate
CPT/HCPCS: 2NBSP; 87075; 36415; 36592; 74177; 81001; 82436; 87040; 87071; 93005; 93010; 96365; 97161-GP; 97530-GO; 99291; J0696; J1644; J2405; J7042

== ENCOUNTER 2017-07-31 15:42 | Inpatient (IN) | payer OTHER, MEDICARE ==
[~2017-07-31] VITALS: Ht 170.2 cm; Wt 77.1 kg
[~2017-07-31 15:42] MED LIST changes: +ACIDOPHILUS1 EACH PO; +ANTACID MAXIMU355 ML PO; +BUSPIRONE HCL5 M1 PO; +CLEOCIN HCL300 M1 PO; +DULCOLAX10 M1 RC; +FLEET ENEMA133 ML RC; +MILK OF MA400 MG/52 PO; +NITROSTAT0.3 M1 SL; +PROTONIX40 M3 PO; +TYLENOL325 M1 PO; +ZOFRAN ODT4 M1 SL
--- NOTE | 2017-07-31 15:58 | ED GI/GU/ABDOMINAL COMPLAINT ---
See Addendum History of Present Illness General Chief Complaint: Abdominal Pain/Flank Pain Stated Complaint: BIBA WITH STOMACH PAIN Source: patient, old records, EMS Exam Limitations: dementia Vital Signs & Intake/Output Vital Signs & Intake/Output Vital Signs Date Time Temp Pulse Resp B/P B/P Pulse O2 O2 Flow FiO2 Mean Ox Delivery Rate 08/02 1358 98.3 80 20 130/64 92 Room Air 08/02 0812 98.1 75 20 116/60 08/02 0720 98.1 75 20 116/60 93 Room Air 08/01 2249 98.0 80 20 130/60 91 08/01 2202 98.5 90 18 92 Room Air 08/01 2006 97.9 85 18 149/63 91 Room Air Allergies Coded Allergies: Penicillins (UNKNOWN 12/09/16) Reconcile Medications Acetaminophen (Tylenol) 325 MG TABLET 2 TAB PO Q4H PRN PAIN/TEMP>100 ( Reported) Acetaminophen (Acephen) 650 MG SUPP.RECT 1 SUPP ME Q4H PRN JAJA/TEMP>100 ( Reported) Acetaminophen With Codeine (Acetaminophen-Cod #3 Tablet) 300 MG-30 MG TABLET 1 TAB PO Q12H PAIN (Reported) Amlodipine Besylate 5 MG TABLET 1 TAB PO DAILY BP (Reported) Bisacodyl (Dulcolax) 10 MG SUPP.RECT 1 SUP RC AD PRN CONSTIPATION (Reported) Buspirone HCl 5 MG TABLET 0.5 TAB PO QAM Mental Health (Reported) Buspirone HCl 5 MG TABLET 2.5 MG PO QAM Mental Health (Reported) Buspirone HCl 5 MG TABLET 12.5 MG PO QHS MENTAL HEALTH (Reported) Cyanocobalamin (Vitamin B-12) 1,000 MCG TABLET 1 TAB PO Q3D VITAMIN SUPPORT ( Reported) Docusate Sodium (Colace) 100 MG CAPSULE 1 CAP PO DAILY STOOL SOFTENER ( Reported) Donepezil HCl 10 MG TABLET 1 TAB PO 1700 DEMENTIA (Reported) Folic Acid 0.8 MG TABLET 1 TAB PO DAILY SUPPLEMENT (Reported) Lactobacillus Acidophilus (Acidophilus) 1 EACH CAPSULE 1 CAP PO DAILY GI Mag Hydrox/Al Hydrox/Simeth (Antacid Maximum Strength Liq) 400 MG-400 MG-40 MG/5 ML ORAL.SUSP 30 ML PO TID PRN EPIGASTRIC/GAS PAIN (Reported) Magnesium Hydroxide (Milk Of Magnesia) 400 MG/5 ML ORAL.SUSP 30 ML PO DAILY PRN CONSTIPATION (Reported) Memantine HCl (Namenda XR) 28 MG CAP.SPR.24 1 CAP PO QHS DEMENTIA (Reported) Na Phos,M-B/Na Phos,Di-Ba (Fleet Enema) 19 GRAM-7 GRAM/118 ML ENEMA 1 E RC DAILY PRN CONSTIPATION (Reported) Nitroglycerin (Nitrostat) 0.3 MG TAB.SUBL 1 TAB SL AD PRN CHEST PAIN ( Reported) Ondansetron (Zofran Odt) 4 MG TAB.RAPDIS 1 TAB SL TID PRN Nausea/Vomiting Pantoprazole Sodium (Protonix) 40 MG TABLET.DR 1 TAB PO DAILY ACID Paroxetine HCl 20 MG TABLET 1 TAB PO DAILY MENTAL HEALTH (Reported) Triage Nurses Notes Reviewed? yes ? n Is pt currently ? No Onset: Abrupt Duration: day(s): (1) Timing: recent history Quality/Severity: aching Location: right upper quadrant Radiation: no radiation Activities at Onset: none No Modifying Factors: none HPI: 86-year-old woman past medical history of recent cholecystostomy tube 07/21/17 here, on clinda for perforated cholecystitis, Alzheimer's, hypertension, depression, GERD and COPD who was brought in by ambulance from [facility] according to W 10- she has had worsening ruq abd pain, and decreased output in cholcystostomy tube as well as pain at the site of the tube with flushing. There is been no documented fevers. Patient reports to feeling nauseous she denies vomiting (Ariel Johnson) Past History Travel History Traveled to [place] past 21 day No Medical History Any Pertinent Medical History? 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 No (Ariel Johnson) Review of Systems Review of Systems Constitutional: Reports: no symptoms, see HPI. Comments Review of systems: UNABLE TO OBTAIN SECONDARY TO DEMENTIA (Seble HATCH,Ariel) Physical Exam Physical Exam General Appearance: well developed/nourished, awake Gastrointestinal: soft, tenderness (RUQ) Comments: Well-developed well-nourished person in no acute distress HEENT: Normal EENT exam; PERRL, EOMI. HEAD is atraumatic. moist mucous membranes. Neck: Supple, normal range of motion Back: Nontender, no CVA tenderness. Full range of motion Cardiovascular: Regular rate and rhythms no murmur Respiratory: No respiratory distress. Patient speaking in full complete sentences. Breath sounds clear to auscultation bilaterally: NO W/R/R Abdomen: Soft, right upper quadrant tenderness palpation. Cholecystostomy tube noted there is no surrounding erythema, draining to leg bag no drainage noted in bag nondistended, no appreciable organomegaly. Normal bowel sounds. No rebound/ guarding, No ascites. Extremity: No edema, full range of motion of extremities, Neuro: Alert oriented x3, motor sensory normal, There were no obvious focal neurologic abnormalities. Skin: No appreciable rash on exposed skin, skin is warm and dry. No jaundice no diaphoresis Psych: Mood and affect is normal, memory and judgment is normal. Core Measures ACS in differential dx? No Sepsis Present: No Sepsis Focused Exam Completed? No (Seble HATCH,Ariel) Progress Differential Diagnosis: AMI, biliary colic, bowel obstruction, colon cancer, gastritis, hepatitis, inflamm bowel dis, pancreatitis, peptic ulcer, PUD/GERD, SLIPPED CHOLECYSTOSTOMY TUBE Plan of Care: Orders Procedure Date/time Status Nothing by Mouth 08/02 B Active CBC WITHOUT DIFFERENTIAL 08/02 0600 Complete BASIC ELECTROLYTES PLUS BUN&CR 08/02 0600 Complete Wound Care/Dressing 08/02 0122 Active MISSING MEDICATION FORM 08/02 UNK Active Vital Signs 08/01 2352 Active Teach/Educate 08/01 2352 Active Pain Treatment and Response 08/01 2352 Active Nutritional Intake, Monitor 08/01 2352 Active Isolation 08/01 2352 Active Intake & Output 08/01 2352 Active Patient Care Conference 08/01 2352 Active Activity/Ambulation 08/01 2352 Active Change service to 08/01 2348 Active Pathway - chart 08/01 2334 Active House Staff 08/01 2334 Active Patient Data 08/01 2334 Active Code Status 08/01 2334 Active Patient Data 08/[address] in observation 08/01 2030 Active VTE Mechanical Prophylaxis 08/01 UNK Active Vital Signs 08/01 UNK Active Nursing Misc 08/01 UNK Active MISSING MEDICATION FORM 08/01 UNK Active Current Medications Sig/Joyce Start time Last Medication Dose Stop Time Status Admin Ceftriaxone Sodium 1,000 MG DAILY 08/02 1000 AC 08/02 (Rocephin) 0813 Lactobacillus 1 CAP DAILY 08/02 1000 AC 08/02 Acidophilus 0812 (Probiotic) Pantoprazole Sodium 40 MG DAILY 08/02 1000 AC 08/02 (Protonix) 0813 Acetaminophen 1,000 MG Q8P PRN 08/02 0600 AC (Ofirmev) N/A 1 UNIT (No Carrier) Metronidazole 500 MG IQ8 08/02 0000 AC 08/02 (Flagyl) 1549 N/A 1 UNIT (No Carrier) Heparin Sodium 5,000 UNIT Q8 08/01 2331 AC 08/02 (Porcine) 1421 Amlodipine Besylate 5 MG DAILY 08/01 1000 AC 08/02 (Norvasc) 0812 Docusate Sodium 100 MG DAILY 08/01 1000 AC 08/02 (Colace) 0811 Folic Acid 1 MG DAILY 08/01 1000 AC 08/02 (Folic Acid) 0811 Paroxetine HCl 20 MG 0800 08/01 0800 AC 08/02 (Paxil) 0810 Donepezil HCl 10 MG DAILY 07/31 1911 AC 08/02 (Aricept) 0811 Laboratory Tests 08/02/17 0734: Anion Gap 12, Estimated GFR > 60, BUN/Creatinine Ratio 15.0, CBC w Diff NO MAN DIFF REQ, RBC 3.47 L, MCV 86.8, MCH 29.2, MCHC 33.6, RDW 14.1, MPV 7.3 L, Gran % 67.0, Lymphocytes % 24.7, Monocytes % 6.0, Eosinophils % 1.7, Basophils % 0.6, Absolute Granulocytes 3.6, Absolute Lymphocytes 1.3, Absolute Monocytes 0.3, Absolute Eosinophils 0.1, Absolute Basophils 0 Labs ordered old records reviewed patient denies any complaints at this time. I spoke with Dr. Silva agrees with plan. I spoke with [facility] per the plan patient to ER hold overnight for IR consult in the morning we will continue to monitor IV fluids pain control I spoke with the patient's power of asbestos remover and sister Valorie over the phone to discuss plan of care she will come in to see the patient tomorrow Discussed with and signed out to Dr. Richard [id number] pending IR consult in the morning Diagnostic Imaging: Viewed by Me: CT Scan. Discussed w/RAD: CT Scan. Radiology Impression: PATIENT: ALIZA ABERNATHY PRESENT AGE: 86 PATIENT ACCOUNT NO: [id number] : 32 LOCATION: [facility] ORDERING PHYSICIAN: Ariel HATCH SERVICE DATE: 07/31/17 EXAM TYPE: CAT - CT ABD & PELVIS W IV CONTRAST EXAMINATION: CT ABDOMEN AND PELVIS WITH CONTRAST CLINICAL INFORMATION: Recent cholecystostomy tube with nausea. COMPARISON: Abdominal CT 07/20/2017 and ultrasound-guided cholecystostomy tube placement from 07/21/2017. TECHNIQUE: Multidetector volumetric imaging was performed of the abdomen and pelvis following IV administration of 94 mL of Optiray 320 intravenous contrast. Sagittal and coronal reformatted images were obtained on the technologist's workstation. FINDINGS: The cholecystostomy tube tip is located outside of the gallbladder lumen, along the lateral margin of the right hepatic lobe. There is a small nonspecific fluid collection containing a few foci of gas just posterior to the cholecystostomy tube tip measuring up to 2.6 cm AP by 1.1 cm TV. A few adjacent isolated punctate foci of remote air are likely from tube insertion. Multiple gallstones are again noted throughout the gallbladder lumen and there is gallbladder wall thickening with pericholecystic inflammatory change, the latter slightly improved in the setting of known acute cholecystitis. At the site of previously identified suspected gallbladder wall perforation there is close apposition of the gallbladder wall with the hepatic flexure making it difficult to exclude the presence of a cholecystocolonic fistula. The common bile duct and pancreatic duct are normal in size. There is some wall thickening involving the second portion of the duodenum, most likely reactive. Visualized lung bases are clear. The liver, spleen, adrenal glands,and pancreas are normal. The kidneys exhibit symmetric nephrograms without evidence of hydronephrosis or nephrolithiasis. Stable appearing nonspecific fluid collection within the left upper quadrant posterior to the spleen and left kidney that again measures up to 9 cm TV by 12.7 cm CC. There is a smaller exophytic left renal cyst. There is extensive aortoiliac atherosclerotic calcification. Large volume stool within the rectum. Sigmoid diverticulosis without acute diverticulitis. There is no bowel obstruction. There is a hiatal hernia. The uterus is surgically absent. No pelvic adenopathy. There are no acute osseous abnormalities. A 1.3 cm subcutaneous nodule within the inner quadrant of the right breast is again noted which can be followed with mammography. Left femoral surgical fixation hardware again noted. IMPRESSION: - The cholecystostomy tube tip is located outside of the gallbladder lumen, along the lateral margin of the right hepatic lobe. There is a small nonspecific fluid collection containing a few foci of gas just posterior to the cholecystostomy tube tip measuring up to 2.6 cm AP by 1.1 cm TV. A few adjacent isolated punctate foci of remote air are likely from tube insertion. - Cholelithiasis with imaging findings again compatible with acute cholecystitis. The degree of inflammation surrounding the gallbladder is decreased in comparison to the prior study. At the site of the previously suspected gallbladder wall perforation there is close apposition of the gallbladder wall with the hepatic flexure making it difficult to exclude the presence of a cholecystocolonic fistula. - A 1.3 cm subcutaneous nodule within the inner quadrant of the right breast is again noted which can be followed with mammography. - Stable appearing nonspecific fluid collection within the left upper quadrant posterior to the spleen and left kidney that again measures up to 9 cm TV by 12.7 cm CC. This may again reflect an exophytic left renal cyst. - Hiatal hernia. Findings discussed with Dr. Pruett at 6:39 PM on 07/31/2017 DICTATED BY: Piyush Knight MD DATE/ TIME DICTATED:07/31/171830 OPERATING ROOM REGISTERED NURSE:ESTEBAN DATE/TIME TRANSCRIBED: 07/31/171830 CONFIDENTIAL, DO NOT COPY WITHOUT APPROPRIATE AUTHORIZATION. < Electronically signed in Other Vendor System> SIGNED BY: Piyush Knight MD 07/31/17 4130 Initial ED EKG: STACH AT 100, NONSPECIFIC ST SEG CHANGES, NORMAL AXIS Prior EKG: unchanged Hand-Off Endorsed To: Piyush Richard MD Endorsed Time: 230 Pending: consult (IR) (Ariel Johnson) Departure Departure Disposition: STILL A PATIENT Condition: Stable Clinical Impression Primary Impression: Cholecystostomy tube dysfunction Qualifiers: Encounter type: initial encounter Qualified Code: T85.518A - Breakdown (mechanical) of other gastrointestinal prosthetic devices, implants and grafts, initial encounter Secondary Impressions: Cholecystitis Referrals: Florencio YOUNG,Hudson Cao (PCP/Family) Departure Forms: Customer Survey General Discharge Information Observation Note Spoke With: Jefferson Silva MD Physician Advisor Notified: JEFFERSON SILVA MD Place Patient In: ED Observation Rationale for Observation: My rational for observation is as follows pt will require IR consult for placement of new cholecystostomy tube, trend labs, iv fluids, trend cultures, iv pain control. premature discharge would be medically harmful. (Ariel Johnson) PA/HEALTH/SAFETY JOB TITLES Co-Sign Statement Statement: ED Attending supervision documentation- [X] I saw and evaluated the patient. I have also reviewed all the pertinent lab results and diagnostic results. I agree with the findings and the plan of care as documented in the PA's/HEALTH/SAFETY JOB TITLES's documentation. [X] I have reviewed the ED Record and agree with the PA's/HEALTH/SAFETY JOB TITLES's documentation. [] Additions or exceptions (if any) to the PAs/HEALTH/SAFETY JOB TITLES's note and plan are summarized below: [] (Jefferson Silva MD) Departure Comments 08/01/17 12:30 PM The patient was signed out to me by Dr. Richard. The case was discussed with Dr. Mickey Simon. He did confirm that the cholecystostomy tube ideally should be replaced. I reviewed the plan of care with the patient's power of asbestos remover (her sister). The patient has no current abdominal pain or tenderness. 08/01/17 ED observation reevaluation note The patient is currently being taken to IR. (Piyush Car DO) ED Attending Observation Initial Observation Note: I have seen and personally examined ALIZA ABERNATHY on 07/31/17 at 1852. I agree with the current emergency department documentation. The disposition (admission or discharge) is uncertain at this time, she needs a period of observation for the following reason(s): [Patient has a dislodged biliary 2. Patient will remain in the emergency department tonight for IV hydration, pain control and to require IR repositioning of the tube tomorrow.] The ED Nurse caring for this patient has been personally informed as to what the patient is being observed for. (Jefferson Silva MD)
[2017-07-31] MEDS ORDERED: BUSPIRONE HCL5 M1 PO (16:24)
[2017-07-31] MEDS ORDERED: ACEPHEN650 M1 PR (16:30)
[2017-07-31 16:59] LABS: ABSOLUTE BASOPHIL COUNT 0.1 /CUMM (0.0-0.2); ABSOLUTE EOSINOPHIL COUNT 0.1 /CUMM (0.0-0.7); ABSOLUTE GRANULOCYTE CT 8.1 /CUMM (1.4-6.5); ABSOLUTE LYMPH COUNT 1.6 /CUMM (1.2-3.4); ABSOLUTE MONOCYTE COUNT 0.7 /CUMM (0.10-0.60); BASOPHIL % 0.6 % (0.0-2.0); EOSINOPHIL % 0.7 % (0-5); GRANULOCYTE % 76.8 % (42.2-75.2); HEMATOCRIT 34.6 % (37-47); MEAN CORPUSCULAR HGB 28.9 PG (27.0-31.0); MEAN CORPUSCULAR HGB CONC 32.9 G/DL (33.0-37.0); MEAN CORPUSCULAR VOLUME 87.8 FL (81.0-99.0); MEAN PLATELET VOLUME 6.9 FL (7.4-10.4); PLATELET COUNT 606 /CUMM (130-400); RBC DISTRIBUTION WIDTH 14.9 % (11.5-14.5); RED BLOOD CELL CT 3.94 /CUMM (4.20-5.40); WHITE BLOOD CELL COUNT 10.5 /CUMM (4.8-10.8)
--- NOTE | 2017-07-31 18:54 | CT SCAN REPORT ---
EXAMINATION: CT ABDOMEN AND PELVIS WITH CONTRAST CLINICAL INFORMATION: Recent cholecystostomy tube with nausea. COMPARISON: Abdominal CT 07/20/2017 and ultrasound-guided cholecystostomy tube placement from 07/21/2017. TECHNIQUE: Multidetector volumetric imaging was performed of the abdomen and pelvis following IV administration of 94 mL of Optiray 320 intravenous contrast. Sagittal and coronal reformatted images were obtained on the technologist's workstation. FINDINGS: The cholecystostomy tube tip is located outside of the gallbladder lumen, along the lateral margin of the right hepatic lobe. There is a small nonspecific fluid collection containing a few foci of gas just posterior to the cholecystostomy tube tip measuring up to 2.6 cm AP by 1.1 cm TV. A few adjacent isolated punctate foci of remote air are likely from tube insertion. Multiple gallstones are again noted throughout the gallbladder lumen and there is gallbladder wall thickening with pericholecystic inflammatory change, the latter slightly improved in the setting of known acute cholecystitis. At the site of previously identified suspected gallbladder wall perforation there is close apposition of the gallbladder wall with the hepatic flexure making it difficult to exclude the presence of a cholecystocolonic fistula. The common bile duct and pancreatic duct are normal in size. There is some wall thickening involving the second portion of the duodenum, most likely reactive. Visualized lung bases are clear. The liver, spleen, adrenal glands,and pancreas are normal. The kidneys exhibit symmetric nephrograms without evidence of hydronephrosis or nephrolithiasis. Stable appearing nonspecific fluid collection within the left upper quadrant posterior to the spleen and left kidney that again measures up to 9 cm TV by 12.7 cm CC. There is a smaller exophytic left renal cyst. There is extensive aortoiliac atherosclerotic calcification. Large volume stool within the rectum. Sigmoid diverticulosis without acute diverticulitis. There is no bowel obstruction. There is a hiatal hernia. The uterus is surgically absent. No pelvic adenopathy. There are no acute osseous abnormalities. A 1.3 cm subcutaneous nodule within the inner quadrant of the right breast is again noted which can be followed with mammography. Left femoral surgical fixation hardware again noted. IMPRESSION: - The cholecystostomy tube tip is located outside of the gallbladder lumen, along the lateral margin of the right hepatic lobe. There is a small nonspecific fluid collection containing a few foci of gas just posterior to the cholecystostomy tube tip measuring up to 2.6 cm AP by 1.1 cm TV. A few adjacent isolated punctate foci of remote air are likely from tube insertion. - Cholelithiasis with imaging findings again compatible with acute cholecystitis. The degree of inflammation surrounding the gallbladder is decreased in comparison to the prior study. At the site of the previously suspected gallbladder wall perforation there is close apposition of the gallbladder wall with the hepatic flexure making it difficult to exclude the presence of a cholecystocolonic fistula. - A 1.3 cm subcutaneous nodule within the inner quadrant of the right breast is again noted which can be followed with mammography. - Stable appearing nonspecific fluid collection within the left upper quadrant posterior to the spleen and left kidney that again measures up to 9 cm TV by 12.7 cm CC. This may again reflect an exophytic left renal cyst. - Hiatal hernia. Findings discussed with Dr. Pruett at 6:39 PM on 07/31/2017
[2017-07-31 20:06] LABS: PTT 30 SEC (25-37)
--- NOTE | 2017-08-01 16:29 | ULTRASOUND REPORT ---
EXAMINATION: US ABDOMEN LIMITED CLINICAL INFORMATION: 86-year-old female with recently placed cholecystostomy tube which has been pulled back on imaging. Request made for replacement of cholecystostomy tube. COMPARISON: CT abdomen pelvis 07/31/2017 and 07/20/2017. Ultrasound-guided percutaneous cholecystostomy tube placement 07/21/2017. TECHNIQUE: Real-time imaging of the gallbladder. FINDINGS: The gallbladder is decompressed around numerous gallstones. Shadowing from gallstones limits gallbladder evaluation, however, gallbladder wall thickening demonstrates interval improvement. No definitive pericholecystic fluid is visualized. Attempts were made to begin the process of placing a new percutaneous cholecystostomy tube, however, the patient was combative and would not let my staff scan her, take her blood pressure or prep her. The situation became unsafe and therefore no cholecystostomy tube was placed at this time. Additionally, placement of the tube under ultrasound would likely be extremely difficult if not impossible given the decompressed nature of the gallbladder around the gallstones. This was discussed with Dr. Car (ER physician) and the patient's sister, Valorie. If this patient definitively requires a new cholecystostomy tube, we will need the assistance of the anesthesia department in order to undertake the procedure safely for both the patient and my staff. This procedure would also likely have to be performed in CT and would be very difficult at best. The old cholecystostomy tube which was pulled back into the subcutaneous tissues was cut and removed in its entirety with gentle pressure. A sterile dressing was placed. IMPRESSION: Decompressed gallbladder around numerous gallstones, limiting visualization. Please see above for details.
--- NOTE | 2017-08-01 20:58 | History & Physical ---
Thais YOUNG,[facility] 08/01/172056: General Information and HPI MD Statement: I have seen and personally examined ALIZA HART and documented this H&P. The patient is a 86 year old F who presented with a patient stated chief complaint of [abdominal pain]. Source of Information: patient, family, old records Exam Limitations: dementia History of Present Illness: Ms. Hart is 86 year old female with past medical history significant for Alzheimer disease, hypertension, depression, GERD, COPD was recently discharged from hospital 07/24 2017 after the placement of cholecystostomy as patient presented with abdominal pain at that time and CT scan revealed severe calculus cholecystitis with possible perforation, patient was not surgical candidate and was discharged back to [facility] on clindamycin for 10 days which she completed. Patient presented to ED on 07/31 for dislodged cholecystectomy, since patient is not surgical candidate, IR was called for replacement of cholecystostomy tube that was unsuccessful because patient was combative and wouldn't let the staff take her blood pressure or prep her and situation was unsafe so procedure was canceled. Patient will be observed in general medical floor for conservative management and surgical reevaluation for possible surgery versus IR procedure. Allergies/Medications Allergies: Coded Allergies: Penicillins (UNKNOWN 12/09/16) Home Med list Acetaminophen (Tylenol) 325 MG TABLET 2 TAB PO Q4H PRN PAIN/TEMP>100 ( Reported) Acetaminophen (Acephen) 650 MG SUPP.RECT 1 SUPP IN Q4H PRN JAJA/TEMP>100 ( Reported) Acetaminophen With Codeine (Acetaminophen-Cod #3 Tablet) 300 MG-30 MG TABLET 1 TAB PO Q12H PAIN (Reported) Amlodipine Besylate 5 MG TABLET 1 TAB PO DAILY BP (Reported) Bisacodyl (Dulcolax) 10 MG SUPP.RECT 1 SUP RC AD PRN CONSTIPATION (Reported) Buspirone HCl 5 MG TABLET 0.5 TAB PO QAM Mental Health (Reported) Buspirone HCl 5 MG TABLET 2.5 MG PO QAM Mental Health (Reported) Buspirone HCl 5 MG TABLET 12.5 MG PO QHS MENTAL HEALTH (Reported) Cyanocobalamin (Vitamin B-12) 1,000 MCG TABLET 1 TAB PO Q3D VITAMIN SUPPORT ( Reported) Docusate Sodium (Colace) 100 MG CAPSULE 1 CAP PO DAILY STOOL SOFTENER ( Reported) Donepezil HCl 10 MG TABLET 1 TAB PO 1700 DEMENTIA (Reported) Folic Acid 0.8 MG TABLET 1 TAB PO DAILY SUPPLEMENT (Reported) Lactobacillus Acidophilus (Acidophilus) 1 EACH CAPSULE 1 CAP PO DAILY GI Mag Hydrox/Al Hydrox/Simeth (Antacid Maximum Strength Liq) 400 MG-400 MG-40 MG/5 ML ORAL.SUSP 30 ML PO TID PRN EPIGASTRIC/GAS PAIN (Reported) Magnesium Hydroxide (Milk Of Magnesia) 400 MG/5 ML ORAL.SUSP 30 ML PO DAILY PRN CONSTIPATION (Reported) Memantine HCl (Namenda XR) 28 MG CAP.SPR.24 1 CAP PO QHS DEMENTIA (Reported) Na Phos,M-B/Na Phos,Di-Ba (Fleet Enema) 19 GRAM-7 GRAM/118 ML ENEMA 1 E RC DAILY PRN CONSTIPATION (Reported) Nitroglycerin (Nitrostat) 0.3 MG TAB.SUBL 1 TAB SL AD PRN CHEST PAIN ( Reported) Ondansetron (Zofran Odt) 4 MG TAB.RAPDIS 1 TAB SL TID PRN Nausea/Vomiting Pantoprazole Sodium (Protonix) 40 MG TABLET.DR 1 TAB PO DAILY ACID Paroxetine HCl 20 MG TABLET 1 TAB PO DAILY MENTAL HEALTH (Reported) Past History Travel History Traveled to [place] past 21 day No Medical History Neurological: ALCOHOL INDUCED DEMENTIA EENT: NONE Cardiovascular: hypertension, ?DYSTHYMIC DISORDER W-10 Respiratory: COPD Gastrointestinal: GERD, NSAID INDUCED ULCER Hepatic: NONE Renal: NONE Musculoskeletal: osteoarthritis, TIB/FIB FRACTURE Psychiatric: anxiety, depression, ETOH Endocrine: NONE Blood Disorders: ANEMIA, B12 DEFICIENCY Cancer(s): 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 Denies: chills, fever. EENTM: Denies: blurred vision, visual changes. Cardiovascular: Denies: chest pain, edema, orthopena. Respiratory: Denies: cough, short of breath. GI: Denies: abdominal pain, diarrhea. Genitourinary: Denies: dysuria, hematuria. Musculoskeletal: Denies: gout, joint pain. Skin: Denies: rash. Neurological/Psychological: Denies: tremors. Exam & Diagnostic Data Last 24 Hrs of Vital Signs/I&O Vital Signs Date Time Temp Pulse Resp B/P B/P Pulse O2 O2 Flow FiO2 Mean Ox Delivery Rate 08/02 0812 98.1 75 20 116/60 08/02 0720 98.1 75 20 116/60 93 Room Air 08/01 2249 98.0 80 20 130/60 91 08/01 2202 98.5 90 18 92 Room Air 08/01 2006 97.9 85 18 149/63 91 Room Air 08/01 1708 97.0 68 16 130/78 95 Room Air 08/01 1154 97.5 90 16 142/65 93 Room Air Intake & Output 08/02 1600 08/02 0800 08/02 0000 Intake Total 600 Output Total Balance 600 Intake, IV 600 Physical Exam General Appearance Alert, Cooperative, No Acute Distress Skin No Rashes Skin Temp/Moisture Exam: Warm/Dry HEENT Atraumatic, PERRLA, EOMI, Mucous Membr. moist/pink Neck Supple Cardiovascular Regular Rate, Normal S1, Normal S2, No Murmurs Lungs Clear to Auscultation, Normal Air Movement Abdomen Normal Bowel Sounds, Soft, RU AND RL Q TENDERNESS Neurological Normal Speech, Strength at 5/5 X4 Ext, Normal Tone Extremities No Clubbing, No Cyanosis, BL TRACE PEDAL EDEMA Last 24 Hrs of Labs/Yanick: Laboratory Tests 08/02/17 0734: Anion Gap 12, Estimated GFR > 60, BUN/Creatinine Ratio 15.0, CBC w Diff NO MAN DIFF REQ, RBC 3.47 L, MCV 86.8, MCH 29.2, MCHC 33.6, RDW 14.1, MPV 7.3 L, Gran % 67.0, Lymphocytes % 24.7, Monocytes % 6.0, Eosinophils % 1.7, Basophils % 0.6, Absolute Granulocytes 3.6, Absolute Lymphocytes 1.3, Absolute Monocytes 0.3, Absolute Eosinophils 0.1, Absolute Basophils 0 Assessment/Plan Assessment: Problem list #Calculus cholecystitis status post cholecystostomy tube--dislodged #Persistent acute cholecystitis #1.3 cm subcutaneous nodule within inner quadrant of right breast require follow -up with mammography #History of hypertension--- patient maintain blood pressure #Alzheimer disease Plan -Observed in general medical floor -IV fluid -Nothing by mouth -Repeat CBC and BMP in a.m. -Blood culture, urine culture -IV ceftriaxone and Flagyl -Pain medication with acetaminophen tabs and IV -Surgery consultation in a.m. -Continue home medication including amlodipine 5 mg daily -IV Protonix -Spoke with patient's sister Valorie, she was to discuss with Dr. Washington, please call her with the expected time for Dr. Washington evaluate the patient -DVT prophylaxis heparin subcutaneous -Code DNR/DNI As Ranked By This Provider Problem List: 1. Acute cholecystitis 2. Cholecystostomy tube dysfunction Qualifiers Encounter type: initial encounter Qualified Code: T85.518A - Breakdown ( mechanical) of other gastrointestinal prosthetic devices, implants and grafts, initial encounter Core Measures/Misc (02/02) Acute Coronary Syndrome ACS Diagnosis: No Congestive Heart Failure Congestive Heart Failure Diagnosis No Cerebrovascular Accident CVA/TIA Diagnosis: No VTE (View Protocol) VTE Risk Factors Acute Medical Illness No Mechanical VTE Prophylaxis d/t N/A MechProphylax Ordered No VTE Pharm Prophylaxis d/t NA PharmProphylax ordered Sepsis (View protocol) Sepsis Present: No Observation Initial Note - I have personally examined ALIZA HART on 08/02/17 at 0650. The disposition of ALIZA HART is uncertain at this time and before a determination can be made, she requires a period of observation for the following reasons [] Lizandro YOUNG, [facility] 08/01/17 1381: Attending MD Review Statement Attending Statement Attending MD Statement: examined this patient, discuss w/resident/PA/BOTTOM LIQUOR ATTENDANT, agreed w/resident/PA/BOTTOM LIQUOR ATTENDANT, reviewed images, amended to note Attending Assessment/Plan: 86 yo F resident of [facility] with h/o Alzheimer's dementia, HTN, depression , GERD, NSAID induced ulcers, COPD, B12 deficiency, recently admitted to [place] (07/20 07/24) for acute calculous cholecystitis with possible perforation not deemed a surgical candidate and hence underwent cholecystostomy tube placement by IR (07/21) and discharged on Clindamycin, was brought in to the ER on July 31 for worsening RUQ pain and decreased output from the tube. Patient was also having pain when the tube was flushed. Patient was kept at ED Obs. Surgery (Dr. Delgado) IR was consulted on August 01. IR was not successful at replacing the cholecystostomy tube, the old dislodged tube was removed. Surgery requested admission to medicine for conservative management and to observe for any deterioration in clinical status. Patient is demented and does not provide much history. She reports nausea, but no vomiting and continues to c/o abdominal pain. She also reports right sided chest discomfort around medial aspect of right breast where she located a firm- to- hard swelling. Vitals are stable. Exam: awake and alert but oriented x 1, dry mucous membranes, neck supple. Chest there is a 1 cm firm to hard nodule palpable on right inferior inner breast region, tender but no erythema, lungs are clear, Heart S1S2 regular, Abd soft, distended, RUQ tenderness, BS+, LE no edema. Labs: no leukocytosis, Plt 606, INR 1.19, glucose 108, LFTs normal, trop neg. EKG: sinus rhythm with ?PAC's, nonspecific changes. CT abd/pelvis with contrast: cholecystostomy tube is located outside gallbladder lumen, small fluid collection with foci of gas posterior to tube tip; cholelithiasis with reduced degree of inflammation, cannot rule out cholecystocolonic fistula; 1.3 cm subcutaneous nodule inner quadrant of right breast, exophytic left renal cyst. Abdomen ultrasound/ IR procedure old dislodged cholecystostomy tube was removed. New percutaneous tube placement was attempted by IR however patient was not co-operative. Also, gallbladder is decompressed making it extremely difficult to place the tube under ultrasound guidance. If patient requires a new tube, IR would require assistance of anesthesia and would have to perfom in CT. Assessment and plan: 1. Cholecystostomy tube dysfunction requiring removal, IR unable to place a new tube 2. Recent acute calculous cholecystitis not a surgical candidate 3. Essential hypertension 4. Chronic anemia likely B12 deficiency on supplementation 5. GERD, NSAID induced ulcers 6. Alzheimers dementia - 23 hour observation on general medicine - Serial abdomen exam - Panculture - NPO for now - IV fluids - IV Ceftriaxone and flagyl (patient has grown alpha strep in previous body fluid culture). Dr. Simon suggested Unasyn, however patient is allergic to penicillin. Please note, patient completed course of Clindamycin on July 30. She is currently afebrile and has no leukocytosis. - Surgery consult (Dr. Simon) for further plan of care ?conservative approach vs IR to re-attempt tube placement under anesthesia - Sister Valorie is the POA, resident spoke with Valorie and explained plan of care. Valorie wishes to speak with Dr. Simon tomorrow. - Advance diet as tolerated and based on surgery recs - Pain management with tylenol - Avoid NSAIDs - IV pantoprazole daily - Resume home meds donepezil, namenda, folic acid, B12, paroxetine, buspar and amlodipine. - TRC nebs as needed, incentive spirometry DVT ppx Hep SC. DNR/I. Sister Valorie - [phone]. Observation Initial Note - I have personally examined ALIZA HART on 08/02/17 at 0120. The disposition of ALIZA HART is uncertain at this time and before a determination can be made, she requires a period of observation for the following reasons [Patient with dislodged cholecystostomy tube for acute cholecystitis, IR was unable to replace the tube. Patient needs observation for IV antibiotics and watch for worsening abdominal pain or signs, re-consult IR for tube placement as patient is not a candidate for surgery. ]
[2017-08-01 22:49] VITALS: BP 130/60
[2017-08-02 07:20] VITALS: BP 116/60
[2017-08-02 09:06] LABS: ABSOLUTE BASOPHIL COUNT 0 /CUMM (0.0-0.2); ABSOLUTE EOSINOPHIL COUNT 0.1 /CUMM (0.0-0.7); ABSOLUTE GRANULOCYTE CT 3.6 /CUMM (1.4-6.5); ABSOLUTE LYMPH COUNT 1.3 /CUMM (1.2-3.4); ABSOLUTE MONOCYTE COUNT 0.3 /CUMM (0.10-0.60); BASOPHIL % 0.6 % (0.0-2.0); EOSINOPHIL % 1.7 % (0-5); HEMATOCRIT 30.1 % (37-47); MEAN CORPUSCULAR HGB 29.2 PG (27.0-31.0); MEAN CORPUSCULAR HGB CONC 33.6 G/DL (33.0-37.0); MEAN CORPUSCULAR VOLUME 86.8 FL (81.0-99.0); MEAN PLATELET VOLUME 7.3 FL (7.4-10.4); PLATELET COUNT 489 /CUMM (130-400); RBC DISTRIBUTION WIDTH 14.1 % (11.5-14.5); RED BLOOD CELL CT 3.47 /CUMM (4.20-5.40); WHITE BLOOD CELL COUNT 5.3 /CUMM (4.8-10.8)
--- NOTE | 2017-08-02 12:16 | PN- General Surgery ---
See Addendum Subjective Subjective: Alert, demented, pleasant, complaints of right upper quadrant pain, worse with palpation Objective Vital Signs and I&Os Vital Signs Date Time Temp Pulse Resp B/P B/P Pulse O2 O2 Flow FiO2 Mean Ox Delivery Rate 08/02 0812 98.1 75 20 116/60 08/02 0720 98.1 75 20 116/60 93 Room Air 08/01 2249 98.0 80 20 130/60 91 08/01 2202 98.5 90 18 92 Room Air 08/01 2006 97.9 85 18 149/63 91 Room Air 08/01 1708 97.0 68 16 130/78 95 Room Air Intake & Output 08/02 1600 08/02 0800 08/02 0000 08/01 1600 08/01 0800 08/01 0000 Intake Total 600 Output Total 200 Balance 600 -200 Intake, IV 600 Output, Urine 200 Physical Exam: Well-developed well-nourished no apparent distress. HEENT: Atraumatic, extraocular motion intact Neck: Supple, no lymphadenopathy Respiratory: No respiratory distress Abdomen: Mild upper abdominal distention and tenderness in the right upper quadrant, dressing from the previous cholecystostomy tube site is clean dry and intact, no signs of infection or erythema. Extremities: No edema, no calf pain Neuro: Alert, Baseline dementia Psych: Pleasant Assessment/Plan Assessment/Plan Patient with cholecystitis status post cholecystostomy tube as she is not a surgical candidate Would recommend IR attempting to place the cholecystostomy tube again, nothing by mouth until this occurs. If the tube is not placed, she risks having another episode of worsening cholecystitis/cholangitis. She is not a surgical candidate , discussed with Dr. Delgado
--- NOTE | 2017-08-02 12:26 | PN- Att Addend ---
Attending Addendum Attending Brief Note Patient seen and examined. Lying in bed. Complaining of diffuse abdominal pain. Denies any nausea. Denies any vomiting. Had no bowel movements overnight. She is currently afebrile and hemodynamically stable. Vital Signs Date Time Temp Pulse Resp B/P B/P Pulse O2 O2 Flow FiO2 Mean Ox Delivery Rate 08/03 811 98.1 75 20 116/60 08/02 0720 98.1 75 20 116/60 93 Room Air 08/01 2249 98.0 80 20 130/60 91 08/01 2202 98.5 90 18 92 Room Air 08/01 2006 97.9 85 18 149/63 91 Room Air 08/01 1708 97.0 68 16 130/78 95 Room Air General appearance: Alert, not in respiratory distress. Heart: S1-S2 regular Lungs: Adequate entry bilaterally with no added sounds. Abdomen: Mildly distended, soft, diffuse tenderness with no rebound or guarding. Hyperactive bowel sounds. Site of previous cholecystostomy tube intact with no surrounding erythema or swelling. Extremities: No peripheral edema. Skin: Intact with no rashes. Laboratory Tests 08/02/17 0734: Anion Gap 12, Estimated GFR > 60, BUN/Creatinine Ratio 15.0, CBC w Diff NO MAN DIFF REQ, RBC 3.47 L, MCV 86.8, MCH 29.2, MCHC 33.6, RDW 14.1, MPV 7.3 L, Gran % 67.0, Lymphocytes % 24.7, Monocytes % 6.0, Eosinophils % 1.7, Basophils % 0.6, Absolute Granulocytes 3.6, Absolute Lymphocytes 1.3, Absolute Monocytes 0.3, Absolute Eosinophils 0.1, Absolute Basophils 0 Problems: 1. Recent cholecystitis status post cholecystostomy tube placement. 2. Dementia 3. COPD. 4. Hypertension Plan: -Case discussed with surgical service. Recommendations from Dr. Simon is replacement of cholecystostomy tube by the interventional radiology service. -Interventional radiology service has been contacted for replacement of the tube. -Patient completed antibiotic course in the outpatient setting for cholecystitis. She is currently afebrile with no leukocytosis or fever. She has been started empirically on ceftriaxone/metronidazole. ID consultation placed. -Monitor CBCs and chemistry daily. -We will discuss with family regarding goals of care.
--- NOTE | 2017-08-02 13:49 | Cons- Infect Disease ---
General Information and HPI Consulting Request Date of Consult: 08/02/17 Requested By: Ricardo YOUNG,Remberto Artis Reason for Consult: Cholecystitis Source of Information: patient, family, old records History of Present Illness: This is an 86-year-old woman with dementia, hypertension, COPD and GERD, hospitalized 11 days prior to admission with acute cholecystitis, with a CT of the abdomen and pelvis revealing severe cholecystitis with possible perforation of the gallbladder, with a stone lodged in the gallbladder neck, felt to be a poor surgical candidate and, therefore, treated with a cholecystostomy tube and antibiotics, with the bile positive for alpha strep and diphtheroids, discharged on Clindamycin to complete a 10 day course of antibiotics, with a temperature of 100.8 prior to discharge, admitted on July 31 with no drainage from the tube and pain in the right upper quadrant. On admission she was afebrile. Laboratory data revealed a white blood cell count of 10.5, BUN/creatinine 11 and 0.7, with normal liver enzymes, coags normal. 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 She was begun on Clindamycin but was changed to Ceftriaxone and Flagyl late last night. On August 01 an attempt at replacement of the cholecystostomy tube was unsuccessful secondary to patient's combativeness. She has been afebrile since admission. She does report abdominal discomfort, particularly when examined. Allergies/Medications Allergies: Coded Allergies: Penicillins (UNKNOWN 12/09/16) Home Med List: Acetaminophen (Tylenol) 325 MG TABLET 2 TAB PO Q4H PRN PAIN/TEMP>100 ( Reported) Acetaminophen (Acephen) 650 MG SUPP.RECT 1 SUPP [place] Q4H PRN JAJA/TEMP>100 ( Reported) Acetaminophen With Codeine (Acetaminophen-Cod #3 Tablet) 300 MG-30 MG TABLET 1 TAB PO Q12H PAIN (Reported) Amlodipine Besylate 5 MG TABLET 1 TAB PO DAILY BP (Reported) Bisacodyl (Dulcolax) 10 MG SUPP.RECT 1 SUP RC AD PRN CONSTIPATION (Reported) Buspirone HCl 5 MG TABLET 0.5 TAB PO QAM Mental Health (Reported) Buspirone HCl 5 MG TABLET 2.5 MG PO QAM Mental Health (Reported) Buspirone HCl 5 MG TABLET 12.5 MG PO QHS MENTAL HEALTH (Reported) Cyanocobalamin (Vitamin B-12) 1,000 MCG TABLET 1 TAB PO Q3D VITAMIN SUPPORT ( Reported) Docusate Sodium (Colace) 100 MG CAPSULE 1 CAP PO DAILY STOOL SOFTENER ( Reported) Donepezil HCl 10 MG TABLET 1 TAB PO 1700 DEMENTIA (Reported) Folic Acid 0.8 MG TABLET 1 TAB PO DAILY SUPPLEMENT (Reported) Lactobacillus Acidophilus (Acidophilus) 1 EACH CAPSULE 1 CAP PO DAILY GI Mag Hydrox/Al Hydrox/Simeth (Antacid Maximum Strength Liq) 400 MG-400 MG-40 MG/5 ML ORAL.SUSP 30 ML PO TID PRN EPIGASTRIC/GAS PAIN (Reported) Magnesium Hydroxide (Milk Of Magnesia) 400 MG/5 ML ORAL.SUSP 30 ML PO DAILY PRN CONSTIPATION (Reported) Memantine HCl (Namenda XR) 28 MG CAP.SPR.24 1 CAP PO QHS DEMENTIA (Reported) Na Phos,M-B/Na Phos,Di-Ba (Fleet Enema) 19 GRAM-7 GRAM/118 ML ENEMA 1 E RC DAILY PRN CONSTIPATION (Reported) Nitroglycerin (Nitrostat) 0.3 MG TAB.SUBL 1 TAB SL AD PRN CHEST PAIN ( Reported) Ondansetron (Zofran Odt) 4 MG TAB.RAPDIS 1 TAB SL TID PRN Nausea/Vomiting Pantoprazole Sodium (Protonix) 40 MG TABLET.DR 1 TAB PO DAILY ACID Paroxetine HCl 20 MG TABLET 1 TAB PO DAILY MENTAL HEALTH (Reported) Past History Travel History Traveled to [place] past 21 day No Medical History Neurological: ALCOHOL INDUCED DEMENTIA EENT: NONE Cardiovascular: hypertension, ?DYSTHYMIC DISORDER W-10 Respiratory: COPD Gastrointestinal: GERD, NSAID INDUCED ULCER Hepatic: NONE Renal: NONE Musculoskeletal: osteoarthritis, TIB/FIB FRACTURE Psychiatric: anxiety, depression, ETOH Endocrine: NONE Blood Disorders: ANEMIA, B12 DEFICIENCY Cancer(s): 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 History of MRSA: No History of VRE: No History of CDIFF: No Isolation History: Standard Influenza Vaccine: 08/02/17 Tetanus Vaccine: Surgical History Surgical History: non-contributory (denies any surgeries) Psychosocial History Smoking Status: Unknown If Ever Smoked ETOH Use: denies use Review of Systems Review of Systems All Other Systems: Reviewed and Negative Exam & Diagnostic Data Last 24 Hrs of Vital Signs/I&O Vital Signs Date Time Temp Pulse Resp B/P B/P Pulse O2 O2 Flow FiO2 Mean Ox Delivery Rate 08/02 0812 98.1 75 20 116/60 08/02 0720 98.1 75 20 116/60 93 Room Air 08/01 2249 98.0 80 20 130/60 91 08/01 2202 98.5 90 18 92 Room Air 08/01 2006 97.9 85 18 149/63 91 Room Air 08/01 1708 97.0 68 16 130/78 95 Room Air Intake & Output 08/02 1600 08/02 0800 08/02 0000 Intake Total 600 Output Total Balance 600 Intake, IV 600 Physical Exam Other Physical Findings: Afebrile. She is awake and alert, confused and disoriented, but in no acute distress. Skin reveals no rash. HEENT negative. Neck is supple with no adenopathy. Lungs are clear. Heart regular rhythm with no murmur. Abdomen is soft, tender on palpation over the right upper quadrant and right lower quadrant , with no guarding or rebound, with positive bowel sounds. Back no CVA tenderness. Extremities no cyanosis, clubbing or edema. Neuro is without focality. Last 24 Hours of Lab Results: Laboratory Tests 08/02 0734 Chemistry Sodium (137 - 145 mmol/L) 144 Potassium (3.5 - 5.1 mmol/L) 3.7 Chloride (98 - 107 mmol/L) 104 Carbon Dioxide (22 - 30 mmol/L) 27 Anion Gap (5 - 16) 12 BUN (7 - 17 mg/dL) 9 Creatinine (0.5 - 1.0 mg/dL) 0.6 Estimated GFR (>60 ml/min) > 60 BUN/Creatinine Ratio (7 - 25 %) 15.0 Hematology CBC w Diff NO MAN DIFF REQ WBC (4.8 - 10.8 /CUMM) 5.3 RBC (4.20 - 5.40 /CUMM) 3.47 L Hgb (12.0 - 16.0 G/DL) 10.1 L Hct (37 - 47 %) 30.1 L MCV (81.0 - 99.0 FL) 86.8 MCH (27.0 - 31.0 PG) 29.2 MCHC (33.0 - 37.0 G/DL) 33.6 RDW (11.5 - 14.5 %) 14.1 Plt Count (130 - 400 /CUMM) 489 H MPV (7.4 - 10.4 FL) 7.3 L Gran % (42.2 - 75.2 %) 67.0 Lymphocytes % (20.5 - 51.1 %) 24.7 Monocytes % (1.7 - 9.3 %) 6.0 Eosinophils % (0 - 5 %) 1.7 Basophils % (0.0 - 2.0 %) 0.6 Absolute Granulocytes (1.4 - 6.5 /CUMM) 3.6 Absolute Lymphocytes (1.2 - 3.4 /CUMM) 1.3 Absolute Monocytes (0.10 - 0.60 /CUMM) 0.3 Absolute Eosinophils (0.0 - 0.7 /CUMM) 0.1 Absolute Basophils (0.0 - 0.2 /CUMM) 0 Last 24 Hours of [place] Results: Blood cultures 2 July 31 negative Diagnostic Data Recent Imaging Findings: CT of the abdomen and pelvis revealed the cholecystostomy tube tip to be outside of the gallbladder lumen, with a small fluid collection containing a few foci of gas posterior to the cholecystostomy tube tip, measuring 2.6 x 1.1 cm, cholelithiasis, with decreased inflammation surrounding the gallbladder, and close apposition of the gallbladder wall with the hepatic flexure, 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 Right upper quadrant ultrasound August 01 reveals a decompressed gallbladder around numerous gallstones, with decreased gallbladder wall thickening and with no definite pericholecystic fluid Assessment/Plan Assessment/Plan Impression: This is an 86-year-old woman with dementia, hypertension, COPD and GERD, hospitalized 11 days prior to admission with acute cholecystitis, with a CT of the abdomen and pelvis revealing possible perforation of the gallbladder, treated with a cholecystostomy tube and antibiotics as she was considered to be a poor surgical candidate, admitted on July 31 with no drainage from the tube and pain in the right upper quadrant, found to be afebrile with a mild leukocytosis and with a CT of the abdomen and pelvis revealing the cholecystostomy tube tip to be outside of the gallbladder lumen, with a small fluid collection containing a few foci of gas posterior to the cholecystostomy tube tip and a possible cholecystocolonic fistula. She appears to have evidence of ongoing inflammation in the right upper quadrant related to her recent cholecystitis, now with evidence of a collection, possibly representing an abscess or biloma, and a possible fistula. Suspect that she would require surgery to resolve these findings and feel that this should be reconsidered. Alternatives to surgery would include replacement of the cholecystostomy tube, though this is only a temporizing measure, will not address the possible collection or fistula and suspect that it will likely again become dislodged, or comfort measures. She was restarted on Ceftriaxone and Flagyl, which should adequately the alpha strep isolated from her bile culture, and this can be continued pending the decision regarding further management. Suggestion: 1. Surgical reevaluation 2. Continue Ceftriaxone and Flagyl pending above Consult Acknowledgment - Thank you for your consult request.
[2017-08-02 13:58] VITALS: BP 130/64
--- NOTE | 2017-08-02 18:13 | Event Note ---
Event Note Event Note: Interventional radiology was consulted regarding the RE-placement of cholecystostomy tube. Dr. Molina from interventional radiology discussed this case with Dr. Simon from general surgery. Finally Dr. Molina also discussed the case with patients POA. With consensus decision was made to have this Cholycystostomy tube placed electively on 08/04/2017. In the meanwhile if patient develops fever, sudden abdominal pain, signs of peritonitis or hemodynamic instability interventional radiology will urgently place this tube. Eventually after 4-6 weeks patient did undergo Cholecystectomy. Contact number for Dr. Molina [phone]
[2017-08-02 22:16] VITALS: BP 150/62
[2017-08-03 06:33] VITALS: BP 146/72
--- NOTE | 2017-08-03 08:49 | PN-Observation ---
[facility] [employer] 08/03/17 0848: Observation Note Observation Note _ I have personally examined ALIZA HART. her disposition is uncertain at this time. Before a determination can be made, she requires continued observation for the following reasons [cholecystitis, status post cholecystostomy tube dislodged ]. Assessment/Plan Medical Assessment: Problem list #Calculus cholecystitis status post cholecystostomy tube--dislodged #Persistent acute cholecystitis #1.3 cm subcutaneous nodule within inner quadrant of right breast require follow -up with mammography #History of hypertension--- patient maintain blood pressure #Alzheimer disease Ms. Hart is 86 year old female with past medical history significant for Alzheimer disease, hypertension, depression, GERD, COPD was recently discharged from hospital 07/24 2017 after the placement of cholecystostomy as patient presented with abdominal pain at that time and CT scan revealed severe calculus cholecystitis with possible perforation, patient was not surgical candidate and was discharged back to [facility] on clindamycin for 10 days which she completed. Patient presented to ED on 07/31 for dislodged cholecystectomy, since patient is not surgical candidate, IR was called for replacement of cholecystostomy tube that was unsuccessful because patient was combative and wouldn't let the staff take her blood pressure or prep her and situation was unsafe so procedure was canceled. Patient will be observed in general medical floor for conservative management and surgical reevaluation for possible surgery versus IR procedure. Plan -Observed in general medical floor -IV fluid -Nothing by mouth -Repeat CBC and BMP in a.m, patient and family refusing labs. -Blood culture, urine culture follow-up -Continue IV ceftriaxone and Flagyl -Pain medication with acetaminophen tabs and IV -Discussed with the surgical team wanted to do cholecystostomy tube tomorrow morning. Patient and the family aware. Second opinion with Jarrett Cornelius MD will be obtained today. -Continue home medication including amlodipine 5 mg daily -IV Protonix -DVT prophylaxis heparin subcutaneous -Code DNR/DNI Problem List: 1. Cholecystostomy tube dysfunction Qualifiers Encounter type: initial encounter Qualified Code: T85.518A - Breakdown ( mechanical) of other gastrointestinal prosthetic devices, implants and grafts, initial encounter 2. Cholecystitis DVT/Prophylaxis: mechanical, pharmacological Subjective Follow-up For: Cholecystitis status post cholecystostomy tube dysfunction. Complaints: no complaints Subjective: Patient was seen and examined at bedside. She was lying in her bed comfortably. She denied to be interviewed at this point. Review of Systems Constitutional: Reports: no symptoms. Objective Last 24 Hrs of Vital Signs/I&O Vital Signs Date Time Temp Pulse Resp B/P B/P Pulse O2 O2 Flow FiO2 Mean Ox Delivery Rate 08/03 0747 97.6 68 20 146/72 08/03 0633 97.6 68 20 146/72 94 08/02 2216 98.9 100 20 150/62 93 08/02 1358 98.3 80 20 130/64 92 Room Air Intake & Output 08/03 1600 08/03 0800 08/03 0000 Intake Total 130 10 Output Total 200 Balance -70 10 Intake, IV 130 10 Output, Urine 200 Physical Exam General Appearance: Alert, Oriented X3, Mild Distress Other Physical Findings: Physical examination-not obtainable because the patient refuses. Current Medications: Current Medications Sig/Joyce Start time Last Medication Dose Route Stop Time Status Admin Acetaminophen 1,000 MG .STK-MED ONE 08/03 0129 DC IV 08/03 0130 Acetaminophen 1,000 MG Q8P PRN 08/02 0600 AC 08/03 N/A 1 UNIT IV 0136 Amlodipine Besylate 5 MG DAILY 08/01 1000 AC 08/03 PO 0747 Ceftriaxone Sodium 1,000 MG DAILY 08/02 1000 AC 08/03 IV 0748 Docusate Sodium 100 MG DAILY 08/01 1000 AC 08/03 PO 0747 Donepezil HCl 10 MG DAILY 07/31 1911 AC 08/03 PO 0747 Folic Acid 1 MG DAILY 08/01 1000 AC 08/03 PO 0747 Heparin Sodium 5,000 UNIT Q8 08/01 2331 AC 08/03 (Porcine) SC 0455 Insulin Human Regular 0 Q6 08/03 2359 CAN SC Lactobacillus 1 CAP DAILY 08/02 1000 AC 08/03 Acidophilus PO 0747 Metronidazole 500 MG IQ8 08/02 0000 AC 08/03 N/A 1 UNIT IV 0746 Pantoprazole Sodium 40 MG DAILY 08/02 1000 AC 08/03 IV 0747 Paroxetine HCl 20 MG 0800 08/01 0800 AC 08/03 PO 0747 Annette YOUNG,Prabhu 08/03/17 1036: Observation Note Observation Note _ I have personally examined JOSEMANUELALIZA. her disposition is uncertain at this time. Before a determination can be made, she requires continued observation for the following reasons []. Addendum Addendum Patient seen and examined. Resting comfortably not in any acute distress. Denies any abdominal pain. Denies any nausea or vomiting. Nursing staff reports that she has been comfortable. He required only Tylenol for pain relief. On examination heart sounds are regular. Lungs are clear bilaterally. Abdomen is soft with tenderness in the right upper quadrant. No rebound. No guarding. Normal bowel sounds. No peripheral edema. I did have an extensive conversation with the patient's family yesterday regarding plan of care. Her sister was at bedside today. Also had a conversation with the patient's surgeon Dr. Simon yesterday. Currently recommendations to reattempt placement of the cholecystostomy tube tomorrow and have it secured adequately to prevent patient from pulling it out. Patient will be followed up by the surgical service several weeks later and reevaluated for cholecystectomy after adequate time has subsided to allow resolution of ongoing inflammatory changes. Family is in agreement with this plan. Family's overall wishes for the patient to be kept comfortable. They are willing to have cholecystostomy tube placed and undergo cholecystectomy in the future. If patient's condition deteriorates significantly despite these interventions they are willing to consider palliative care at that time. Recommendations: -Advance diet as recommended by the surgical service for today. Keep n.p.o. after midnight for cholecystostomy tube placement by IR tomorrow. -Continue current pain regimen. -Continue current empiric antibiotic regimen. -Change Protonix to oral route -Change status to inpatient level of care.
--- NOTE | 2017-08-03 12:57 | Cons- General Surgery ---
General Information and HPI Consulting Request Date of Consult: 08/03/17 Requested By: Dr Bryant Reason for Consult: 2nd opin History of Present Illness: CC: abdominal pain HPI: 86-year-old nondiabetic nonsmoker with a history of dementia and COPD initially presented here on the fourth with a several day history of abdominal pain, she went to the ER with a CT scan showed possibly perforated gallbladder decision was made to do a cholecystostomy she was discharged on antibiotics but brought back 2 days ago because the tube had stopped draining and the patient still had right upper quadrant pain now. History is limited as is the chart and the patient herself who happens to be non agitated at the moment, denies any abdominal pain just tired. No mention of nausea or vomiting fevers or sweats recently. Otherwise no mention of any fevers, or changes bowel habits, weight or appetite. I've reviewed the [facility]. No history of GERD, PUD, bleeding problems, heart disease or issues with anesthesia. Patient denies history of smoking doesn't recall family history of any medical problems including cancer or heart disease diabetes and even gallbladder Allergies/Medications Allergies: Coded Allergies: Penicillins (UNKNOWN 12/09/16) Home Med List: Acetaminophen (Tylenol) 325 MG TABLET 2 TAB PO Q4H PRN PAIN/TEMP>100 ( Reported) Acetaminophen (Acephen) 650 MG SUPP.RECT 1 SUPP [place] Q4H PRN JAJA/TEMP>100 ( Reported) Acetaminophen With Codeine (Acetaminophen-Cod #3 Tablet) 300 MG-30 MG TABLET 1 TAB PO Q12H PAIN (Reported) Amlodipine Besylate 5 MG TABLET 1 TAB PO DAILY BP (Reported) Bisacodyl (Dulcolax) 10 MG SUPP.RECT 1 SUP RC AD PRN CONSTIPATION (Reported) Buspirone HCl 5 MG TABLET 0.5 TAB PO QAM Mental Health (Reported) Buspirone HCl 5 MG TABLET 2.5 MG PO QAM Mental Health (Reported) Buspirone HCl 5 MG TABLET 12.5 MG PO QHS MENTAL HEALTH (Reported) Cyanocobalamin (Vitamin B-12) 1,000 MCG TABLET 1 TAB PO Q3D VITAMIN SUPPORT ( Reported) Docusate Sodium (Colace) 100 MG CAPSULE 1 CAP PO DAILY STOOL SOFTENER ( Reported) Donepezil HCl 10 MG TABLET 1 TAB PO 1700 DEMENTIA (Reported) Folic Acid 0.8 MG TABLET 1 TAB PO DAILY SUPPLEMENT (Reported) Lactobacillus Acidophilus (Acidophilus) 1 EACH CAPSULE 1 CAP PO DAILY GI Mag Hydrox/Al Hydrox/Simeth (Antacid Maximum Strength Liq) 400 MG-400 MG-40 MG/5 ML ORAL.SUSP 30 ML PO TID PRN EPIGASTRIC/GAS PAIN (Reported) Magnesium Hydroxide (Milk Of Magnesia) 400 MG/5 ML ORAL.SUSP 30 ML PO DAILY PRN CONSTIPATION (Reported) Memantine HCl (Namenda XR) 28 MG CAP.SPR.24 1 CAP PO QHS DEMENTIA (Reported) Na Phos,M-B/Na Phos,Di-Ba (Fleet Enema) 19 GRAM-7 GRAM/118 ML ENEMA 1 E RC DAILY PRN CONSTIPATION (Reported) Nitroglycerin (Nitrostat) 0.3 MG TAB.SUBL 1 TAB SL AD PRN CHEST PAIN ( Reported) Ondansetron (Zofran Odt) 4 MG TAB.RAPDIS 1 TAB SL TID PRN Nausea/Vomiting Pantoprazole Sodium (Protonix) 40 MG TABLET.DR 1 TAB PO DAILY ACID Paroxetine HCl 20 MG TABLET 1 TAB PO DAILY MENTAL HEALTH (Reported) Past History Medical History Neurological: ALCOHOL INDUCED DEMENTIA EENT: NONE Cardiovascular: hypertension, ?DYSTHYMIC DISORDER W-10 Respiratory: COPD Gastrointestinal: GERD, NSAID INDUCED ULCER Hepatic: NONE Renal: NONE Musculoskeletal: osteoarthritis, TIB/FIB FRACTURE Psychiatric: anxiety, depression, ETOH Endocrine: NONE Blood Disorders: ANEMIA, B12 DEFICIENCY Cancer(s): 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 Surgical History Pertinent Surgical History: non-contributory (denies any surgeries) Psychosocial History Smoking Status: Unknown If Ever Smoked ETOH Use: denies use Review of Systems Review of Systems: Review of systems Limited to the chart and is stated above Constitutional: No fever, sweats or weight loss ENMT: No sore throat Cardiovascular: No chest pain, palpitations or leg swelling Respiratory: No shortness of breath, cough, or sputum or dyspnea on exertion GI: No GERD or bleeding per rectum : No dysuria or hematuria Musculoskeletal: No new muscle weakness, bone or joint pain Skin / Breast: No jaundice, rashes or itching Psychiatric: History of alcohol abuse, no depression or anxiety Hematologic / lymphatic system: No problems with excessive bleeding, bruising, or blood clots Exam & Diagnostic Data Vital Signs and I&O I reviewed I reviewed Vital Signs Date Time Temp Pulse Resp B/P B/P Pulse O2 O2 Flow FiO2 Mean Ox Delivery Rate 08/03 0747 97.6 68 20 146/72 08/03 0633 97.6 68 20 146/72 94 08/02 2216 98.9 100 20 150/62 93 08/02 1358 98.3 80 20 130/64 92 Room Air Intake & Output 08/03 1600 08/03 0800 08/03 0000 08/02 1600 08/02 0800 08/02 0000 Intake Total 130 10 400 600 Output Total 200 Balance -70 10 400 600 Intake, IV 130 10 600 Intake, Oral 400 Number 1 Bowel Movements Output, Urine 200 Physical Exam: Constitutional: pleasant, no acute distress, conversant Eyes: sclera anicteric ENMT: ears and nose atraumatic, moist mucous membranes, good dentition, no lip lesions Neck: Supple, trachea is midline, no cervical or supraclavicular adenopathy and no palpable thyromegaly Cardiovascular: S1, S2, no murmurs, no peripheral edema Respiratory: clear to auscultation with normal respiratory effort and no intercostal retractions GI: abdomen very soft, nontender, nondistended, no palpable hepatosplenomegaly Extremities / lymphatics: symmetrically warm, free range of motion no peripheral edema, no cervical, supraclavicular, axillary, or inguinal adenopathy Musculoskeletal: Did not evaluate gait and station, no digital cyanosis, good muscle strength and tone no atrophy, motor grossly 5 out of 5 throughout Skin: no jaundice, no rashes warm, nondiaphoretic, no areas of erythema or induration Psychiatric: mood and affect are appropriate and alert and oriented but not necessarily to all [address] and time Last 24 Hours of Labs: I reviewed Assessment/Plan Assessment/Plan I compared the CT scans from the fourth and the on PACS myself gallbladder distention has decreased fluid around the gallbladder has decreased wall was still thick and on image 35 of 87 compared to 36 of 91 on the fourth there is no obvious connection containing gas Impression is patient initially treated nonoperatively for possibly perforated gallbladder but the tube was come out only after about a week, we don't know the exact details of how much the output was before then. There is a risk of continued leakage presently clinically and by imaging it does not seem so. She appears to be improving just antibiotics alone. As long as patient is stable we use temporizing measures to avoid unnecessary risk especially if operating beyond 2 weeks although more given at this was a complicated cholecystitis tissue planes between the gallbladder and the colon at this time are virtually unapproachable risking colostomy. Continue antibiotics if she worsens she'll need another tube. Typically if you can usually about 6 weeks for the situation to "cool off" before operating. Problem List: 1. Cholecystostomy tube dysfunction 2. Acute cholecystitis Consult Acknowledgment - Thank you for your consult request.
[2017-08-03 14:12] VITALS: BP 142/86
[2017-08-03 22:03] VITALS: BP 140/60
[2017-08-04 06:47] VITALS: BP 140/68
--- NOTE | 2017-08-04 07:52 | PN- Housestaff ---
Jaime YOUNG,Irma 08/04/17 0752: Subjective Follow-up For: Cholecystitis Complaints: no complaints Subjective: Patient seen and examined at bedside. She was lying in her bed comfortably. She complains of right lower quadrant pain. She denies chest pain, chest pressure, nausea, vomiting, constipation. Review of Systems Constitutional: Reports: no symptoms. Cardiovascular: Reports: no symptoms. Respiratory: Reports: no symptoms. Gastrointestinal: Reports: abdominal pain. Genitourinary: Reports: no symptoms. Musculoskeletal: Reports: no symptoms. Objective Last 24 Hrs of Vital Signs/I&O Vital Signs Date Time Temp Pulse Resp B/P B/P Pulse O2 O2 Flow FiO2 Mean Ox Delivery Rate 08/04 1422 98.5 70 20 132/65 94 Room Air 08/04 0910 85 140/68 08/04 0647 98.8 85 20 140/68 93 Room Air 08/03 2203 98.2 84 20 140/60 94 Intake & Output 08/04 1600 08/04 0800 08/04 0000 Intake Total 0 150 Output Total 350 301 Balance -350 -151 Intake, IV 150 Intake, Oral 0 Output, Stool 1 Output, Urine 350 300 Physical Exam General Appearance: Alert, Oriented X3, Cooperative, No Acute Distress Cardiovascular: Regular Rate, Normal S1, Normal S2, No Murmurs Lungs: Clear to Auscultation, Normal Air Movement Abdomen: Normal Bowel Sounds, Soft, No Tenderness, No Hepatospenomegaly Neurological: Strength at 5/5 X4 Ext, Normal Tone, Sensation Intact Current Medications: Current Medications Sig/Joyce Start time Last Medication Dose Route Stop Time Status Admin Acetaminophen 1,000 MG Q8P PRN 08/02 0600 AC 08/03 N/A 1 UNIT IV 0136 Amlodipine Besylate 5 MG DAILY 08/01 1000 AC 08/04 PO 0910 Ceftriaxone Sodium 1,000 MG DAILY 08/02 1000 AC 08/04 IV 0910 Dextrose/Sodium 1,000 ML Q20H 08/04 0800 AC 08/04 Chloride IV 0844 Docusate Sodium 100 MG DAILY 08/01 1000 AC 08/04 PO 0910 Donepezil HCl 10 MG DAILY 07/31 1911 AC 08/04 PO 0910 Folic Acid 1 MG DAILY 08/01 1000 AC 08/04 PO 0910 Heparin Sodium 5,000 UNIT Q8 08/01 2331 AC 08/04 (Porcine) SC 1301 Lactobacillus 1 CAP DAILY 08/02 1000 AC 08/04 Acidophilus PO 0910 Metronidazole 500 MG IQ8 08/02 0000 AC 08/04 N/A 1 UNIT IV 0838 Pantoprazole Sodium 40 MG DAILY 08/02 1000 AC 08/04 IV 0910 Paroxetine HCl 20 MG 0800 08/01 0800 AC 08/04 PO 0838 Patient Medication 1 ED ONE ONE 08/04 1430 MN Teaching ED 08/04 1431 Last 24 Hrs of Lab/Yanick Results Last 24 Hrs of Labs/Mics: Laboratory Tests 08/04/17 0743: Anion Gap 17 H, Estimated GFR > 60, BUN/Creatinine Ratio 21.7, CBC w Diff NO MAN DIFF REQ, RBC 3.81 L, MCV 86.4, MCH 29.0, MCHC 33.6, RDW 14.0, MPV 7.2 L, Gran % 66.3, Lymphocytes % 24.1, Monocytes % 7.0, Eosinophils % 1.7, Basophils % 0.9, Absolute Granulocytes 4.1, Absolute Lymphocytes 1.5, Absolute Monocytes 0.4 , Absolute Eosinophils 0.1, Absolute Basophils 0.1 Assessment/Plan Assessment: Problem list #Calculus cholecystitis status post cholecystostomy tube--dislodged #Persistent acute cholecystitis #1.3 cm subcutaneous nodule within inner quadrant of right breast require follow -up with mammography #History of hypertension--- patient maintain blood pressure #Alzheimer disease Ms. Hart is 86 year old female with past medical history significant for Alzheimer disease, hypertension, depression, GERD, COPD was recently discharged from hospital 07/24 2017 after the placement of cholecystostomy as patient presented with abdominal pain at that time and CT scan revealed severe calculus cholecystitis with possible perforation, patient was not surgical candidate and was discharged back to [facility] on clindamycin for 10 days which she completed. Patient presented to ED on 07/31 for dislodged cholecystectomy, since patient is not surgical candidate, IR was called for replacement of cholecystostomy tube that was unsuccessful because patient was combative and wouldn't let the staff take her blood pressure or prep her and situation was unsafe so procedure was canceled. Patient will be observed in general medical floor for conservative management and surgical reevaluation for possible surgery versus IR procedure. Plan -Patient is nothing by mouth pending cholecystostomy tube placement today. Patient was evaluated by the surgical team and discussed with the attending and interventional radiology who suggested to withhold tube placement today and repeat CT abdomen and pelvis -Nothing by mouth -Repeat CBC and BMP in a.m, patient and family refusing labs. -Blood culture, urine culture follow-up -Continue IV ceftriaxone and Flagyl per infectious disease. We will do repeat liver enzymes. -Pain medication with acetaminophen tabs and IV -Continue home medication including amlodipine 5 mg daily -IV Protonix -DVT prophylaxis heparin subcutaneous -Code DNR/DNI Update CT abdomen and pelvis- 1. The cholecystostomy tube is not present. There is remaining cholelithiasis with cholecystitis, not significantly changed compared to the prior study. 2. Multiple bilateral renal cysts as described one of which is the low likely the large stable fluid collection in the left upper quadrant. Discussed this report with the interventional radiologist who suggested no intervention at this moment. We will discuss with surgical team. Problem List: 1. Cholecystitis Pain Ratin Pain Location: None Pain Goal: Remain pain free Pain Plan: Tylenol Tomorrow's Labs & Rationales: CBC, BEP Azam Mercerkatia 08/04/17 1145: Attending MD Review Statement Attending Statement Attending MD Statement: examined this patient, discuss w/resident/PA/LITHOGRAPH PRESS FEEDER, agreed w/resident/PA/LITHOGRAPH PRESS FEEDER, discussed with family, reviewed EMR data (avail), discussed with nursing, discussed with case mgmt, reviewed images, amended to note Attending Assessment/Plan: Patient seen and examined. Resting comfortably not in any acute distress. IV line being placed Denies any abdominal pain. Denies any nausea or vomiting. On examination heart sounds are regular. Lungs are clear bilaterally. Abdomen is soft with mild tenderness in the right upper quadrant. No rebound. No guarding. Normal bowel sounds. Patient admitted with cholecysitis and s/p dislodgement of cholecystotomy tube and first unsuccesful attempt by IR. Plan is to get repeat CT abd/pelvis with contrast today. Her Creatinine is wnl. Recommendations: -Advance diet as recommended by the surgical service. -Surgery revaluation recommend conservative management for now. IR Dr Porter and Surgery Dr Cornelius had discussion and proceed with repeat CT abd/plevis with contrast to better visualise GB Anatomy. Primary surgeon Dr Delgado did recommend conservative measures for now. -Continue current pain regimen. -Continue current empiric antibiotic regimen. f/u ID -Change Protonix to oral route.
[2017-08-04 08:27] LABS: ABSOLUTE BASOPHIL COUNT 0.1 /CUMM (0.0-0.2); ABSOLUTE EOSINOPHIL COUNT 0.1 /CUMM (0.0-0.7); ABSOLUTE GRANULOCYTE CT 4.1 /CUMM (1.4-6.5); ABSOLUTE LYMPH COUNT 1.5 /CUMM (1.2-3.4); ABSOLUTE MONOCYTE COUNT 0.4 /CUMM (0.10-0.60); BASOPHIL % 0.9 % (0.0-2.0); EOSINOPHIL % 1.7 % (0-5); GRANULOCYTE % 66.3 % (42.2-75.2); HEMATOCRIT 32.9 % (37-47); MEAN CORPUSCULAR HGB CONC 33.6 G/DL (33.0-37.0); MEAN CORPUSCULAR VOLUME 86.4 FL (81.0-99.0); MEAN PLATELET VOLUME 7.2 FL (7.4-10.4); PLATELET COUNT 545 /CUMM (130-400); RED BLOOD CELL CT 3.81 /CUMM (4.20-5.40); WHITE BLOOD CELL COUNT 6.2 /CUMM (4.8-10.8)
--- NOTE | 2017-08-04 09:02 | PN- General Surgery ---
Surgical Brief Attending Note Brief Attending Note: Patient continues to be comfortable. Denies pain, has not required pain meds. AVSS. Abd-obese, soft, NT. Labs ok. Patient clinically improving, up to primary team/ID re: need for cholecystostomy tube, second opinion requested by primary team/POA.
--- NOTE | 2017-08-04 13:08 | PN- Infect Dx ---
Subjective Subjective: Afebrile without complaints Objective Last 24 Hrs of Vital Signs/I&O Vital Signs Date Time Temp Pulse Resp B/P B/P Pulse O2 O2 Flow FiO2 Mean Ox Delivery Rate 08/04 0910 85 140/68 08/04 0647 98.8 85 20 140/68 93 Room Air 08/03 2203 98.2 84 20 140/60 94 08/03 1412 98.7 80 20 142/86 94 Room Air Intake & Output 08/04 1600 08/04 0800 08/04 0000 Intake Total 0 150 Output Total 350 301 Balance -350 -151 Intake, IV 150 Intake, Oral 0 Output, Stool 1 Output, Urine 350 300 Physical Exam Other Physical Findings: She appears comfortable in no acute distress Lungs are clear Heart regular rhythm with no murmur Abdomen is soft, tender on palpation of the epigastrium, right upper quadrant and right lower quadrant, with no guarding or rebound, positive bowel sounds Extremities no cyanosis, clubbing or edema Results Last 24 Hours of Lab Results: Laboratory Tests 08/04 0743 Chemistry Sodium (137 - 145 mmol/L) 140 Potassium (3.5 - 5.1 mmol/L) 3.4 L Chloride (98 - 107 mmol/L) 99 Carbon Dioxide (22 - 30 mmol/L) 23 Anion Gap (5 - 16) 17 H BUN (7 - 17 mg/dL) 13 Creatinine (0.5 - 1.0 mg/dL) 0.6 Estimated GFR (>60 ml/min) > 60 BUN/Creatinine Ratio (7 - 25 %) 21.7 Hematology CBC w Diff NO MAN DIFF REQ WBC (4.8 - 10.8 /CUMM) 6.2 RBC (4.20 - 5.40 /CUMM) 3.81 L Hgb (12.0 - 16.0 G/DL) 11.1 L Hct (37 - 47 %) 32.9 L MCV (81.0 - 99.0 FL) 86.4 MCH (27.0 - 31.0 PG) 29.0 MCHC (33.0 - 37.0 G/DL) 33.6 RDW (11.5 - 14.5 %) 14.0 Plt Count (130 - 400 /CUMM) 545 H MPV (7.4 - 10.4 FL) 7.2 L Gran % (42.2 - 75.2 %) 66.3 Lymphocytes % (20.5 - 51.1 %) 24.1 Monocytes % (1.7 - 9.3 %) 7.0 Eosinophils % (0 - 5 %) 1.7 Basophils % (0.0 - 2.0 %) 0.9 Absolute Granulocytes (1.4 - 6.5 /CUMM) 4.1 Absolute Lymphocytes (1.2 - 3.4 /CUMM) 1.5 Absolute Monocytes (0.10 - 0.60 /CUMM) 0.4 Absolute Eosinophils (0.0 - 0.7 /CUMM) 0.1 Absolute Basophils (0.0 - 0.2 /CUMM) 0.1 Last 24 Hours of Yanick Results: Blood cultures July 31 negative Assessment/Plan ID Impression: Stable, with temperatures and white blood cell count remaining normal, on Ceftriaxone and Flagyl, now Day 3 of treatment for cholecystitis, status post placement of a cholecystostomy tube 11 days prior to admission, with subsequent inadvertent removal. Surgical evaluations noted, with no plans for surgical intervention at this time. The need for or role of replacement of the cholecystostomy tube is unclear at this time, with the recommendation by Surgery to reinsert if her condition worsens noted. Suggestion: 1. Repeat liver enzymes 2. Further management with regard to replacement of the cholecystostomy tube/ cholecystectomy per Surgery 3. Continue Ceftriaxone and Flagyl pending above
[2017-08-04 14:22] VITALS: BP 132/65
--- NOTE | 2017-08-04 15:00 | CT SCAN REPORT ---
EXAMINATION: CT ABDOMEN AND PELVIS WITH CONTRAST CLINICAL INFORMATION: Abdominal pain with dislodged cystostomy tube. COMPARISON: 07/31/2017 TECHNIQUE: Multidetector volumetric imaging was performed of the abdomen and pelvis following IV administration of 95 mL of Optiray 320 intravenous contrast. Sagittal and coronal reformatted images were obtained on the technologist's workstation. DLP: 615.97 mGy-cm FINDINGS: Superficial soft tissue nodule in the medial aspect of the right breast tissue may represent a sebaceous cyst. Correlate with mammogram imaging. LUNG BASES: Again noted is the nodular density at the margin of the right middle lobe measuring 8 mm in size. No new soft tissue pulmonary nodules are present. Emphysematous changes are noted. LIVER, GALLBLADDER, AND BILIARY TREE: There is heterogeneous attenuation throughout the liver however no enhancing hepatic mass lesions are noted. No intrahepatic biliary ductal dilation is noted. The gallbladder is lumen is filled with numerous gallstones. Gallbladder wall thickening is present however no free pericholecystic fluid collections are present. The cystostomy tube present on the previous study is not currently visualized, previously the tube tip was not within the lumen of the gallbladder. PANCREAS: Unremarkable. SPLEEN: Unremarkable. ADRENAL GLANDS: Unremarkable. KIDNEYS AND URETERS: Multiple cystic structures are present in the bilateral kidneys, which are stable compared to the prior study as well as a fluid collection present in the left upper quadrant which may represent an exophytic large left renal cyst. The size and morphology is stable compared to the prior study.. BLADDER: Unremarkable. GASTROINTESTINAL TRACT: The small and large bowel are unremarkable. ABDOMINAL WALL: No significant hernia is appreciated. LYMPH NODES: No lymphadenopathy is noted.. VASCULAR: Heavy atherosclerotic plaque is present within the abdominal aorta, no aneurysmal dilation is noted.. PELVIC VISCERA: Unremarkable. OSSEOUS STRUCTURES: Complex scoliosis of the thoracolumbar spine with multilevel compensatory degenerative changes. No bony destructive lesions are noted.. IMPRESSION: 1. The cholecystostomy tube is not present. There is remaining cholelithiasis with cholecystitis, not significantly changed compared to the prior study. 2. Multiple bilateral renal cysts as described one of which is the low likely the large stable fluid collection in the left upper quadrant.
[2017-08-04 21:41] VITALS: BP 130/70
[2017-08-05 06:58] VITALS: BP 116/60
--- NOTE | 2017-08-05 07:20 | PN- Housestaff ---
Jaime YOUNG,Irma 08/05/17 0720: Subjective Follow-up For: Cholecystitis Complaints: no complaints Subjective: Patient seen and examined at bedside. Patient lying in her bed and refuses for any physical examination. Hence review of system unobtainable. Review of Systems Constitutional: Reports: no symptoms. Cardiovascular: Reports: no symptoms. Respiratory: Reports: no symptoms. Gastrointestinal: Reports: no symptoms. Objective Last 24 Hrs of Vital Signs/I&O Vital Signs Date Time Temp Pulse Resp B/P B/P Pulse O2 O2 Flow FiO2 Mean Ox Delivery Rate 08/05 1409 99.0 100 20 140/80 95 Room Air 08/05 0658 98.7 73 20 116/60 94 Room Air 08/04 2141 97.8 79 20 130/70 96 Intake & Output 08/05 1600 08/05 0800 08/05 0000 Intake Total 363 324 6334 Output Total 400 200 Balance -048 021 5058 Intake, IV 400 400 Intake, Oral 240 800 Number 1 1 Bowel Movements Output, Urine 400 200 Physical Exam General Appearance: Alert, Oriented X3, Cooperative, No Acute Distress Current Medications: Current Medications Sig/Joyce Start time Last Medication Dose Route Stop Time Status Admin Acetaminophen 1,000 MG Q8P PRN 08/02 0600 AC 08/03 N/A 1 UNIT IV 0136 Amlodipine Besylate 5 MG DAILY 08/01 1000 AC 08/05 PO 0825 Ceftriaxone Sodium 1,000 MG DAILY 08/02 1000 AC 08/05 IV 0825 Dextrose/Sodium 1,000 ML Q20H 08/04 0800 AC 08/05 Chloride IV 0828 Docusate Sodium 100 MG DAILY 08/01 1000 AC 08/05 PO 0825 Donepezil HCl 10 MG DAILY 07/31 1911 AC 08/05 PO 0825 Folic Acid 1 MG DAILY 08/01 1000 AC 08/05 PO 0825 Heparin Sodium 5,000 UNIT Q8 08/01 2331 AC 08/05 (Porcine) SC 1442 Lactobacillus 1 CAP DAILY 08/02 1000 AC 08/05 Acidophilus PO 0825 Metronidazole 500 MG IQ8 08/02 0000 AC 08/05 N/A 1 UNIT IV 0825 Pantoprazole Sodium 40 MG DAILY 08/02 1000 AC 08/05 IV 0825 Paroxetine HCl 20 MG 0800 08/01 0800 AC 08/05 PO 0825 Potassium Chloride 40 MEQ ONCE ONE 08/04 1530 DC 08/04 PO 08/04 1531 1608 Last 24 Hrs of Lab/Yanick Results Last 24 Hrs of Labs/Mics: Laboratory Tests 08/05/17 0905: Anion Gap 14, Estimated GFR > 60, BUN/Creatinine Ratio 17.1, CBC w Diff NO MAN DIFF REQ, RBC 3.52 L, MCV 85.3, MCH 29.0, MCHC 34.0, RDW 14.2, MPV 7.3 L, Gran % 62.5, Lymphocytes % 26.3, Monocytes % 8.5, Eosinophils % 1.9, Basophils % 0.8, Absolute Granulocytes 3.2, Absolute Lymphocytes 1.4, Absolute Monocytes 0.4, Absolute Eosinophils 0.1, Absolute Basophils 0 08/04/171943: Total Bilirubin 0.7, Direct Bilirubin 0.7 H, AST 18, ALT 28, Alkaline Phosphatase 101, Total Protein 6.5, Albumin 3.5 Assessment/Plan Assessment: Problem list #Calculus cholecystitis status post cholecystostomy tube--dislodged #Persistent acute cholecystitis #1.3 cm subcutaneous nodule within inner quadrant of right breast require follow -up with mammography #History of hypertension--- patient maintain blood pressure #Alzheimer disease Ms. Hart is 86 year old female with past medical history significant for Alzheimer disease, hypertension, depression, GERD, COPD was recently discharged from hospital 07/24 2017 after the placement of cholecystostomy as patient presented with abdominal pain at that time and CT scan revealed severe calculus cholecystitis with possible perforation, patient was not surgical candidate and was discharged back to [facility] on clindamycin for 10 days which she completed. Patient presented to ED on 07/31 for dislodged cholecystectomy, since patient is not surgical candidate, IR was called for replacement of cholecystostomy tube that was unsuccessful because patient was combative and wouldn't let the staff take her blood pressure or prep her and situation was unsafe so procedure was canceled. Patient will be observed in general medical floor for conservative management and surgical reevaluation for possible surgery versus IR procedure. Plan - Cholycystostomy tube placement was cancelled by IR and surgery. The surgeons want to do cholecystectomy 4 weeks later. Patient diet advanced. -Repeat CBC and BMP in a.m -Blood culture, urine culture follow-up -Continue IV ceftriaxone and Flagyl per infectious disease. ID follow-up appreciated. -Pain control with acetaminophen -Continue home medication including amlodipine 5 mg daily -DVT prophylaxis heparin subcutaneous -Code DNR/DNI Patient is plan for discharge tomorrow. Physical therapy follow-up today. Problem List: 1. Cholecystitis Pain Ratin Pain Location: none Pain Goal: Remain pain free Pain Plan: tylenol Tomorrow's Labs & Rationales: cbc,bep Yohana Mercer 08/05/17 1132: Attending MD Review Statement Attending Statement Attending MD Statement: examined this patient, discuss w/resident/PA/VOICE ENGINEER, agreed w/resident/PA/VOICE ENGINEER, discussed with family, reviewed EMR data (avail), discussed with nursing, discussed with case mgmt, reviewed images, amended to note Attending Assessment/Plan: Patient seen and examined. Resting comfortably not in any acute distress. Nurse reported no new symptoms. Patient admitted with cholecysitis and s/p dislodgement of cholecystotomy tube and first unsuccesful attempt by IR. Repeat CT abd/pelvis with contrast noted and d/wed IR Dr Porter. Her Creatinine is wnl. Recommendations: -Advance diet as recommended by the surgical service. -Surgery revaluation recommend conservative management for now. IR Dr Porter and Surgery Dr Cornelius had discussion, Repeat imaging noted. Primary surgeon Dr Delgado did recommend conservative measures for now. -Continue current pain regimen. -Continue current empiric antibiotic regimen. f/u ID -Change Protonix to oral route. Plan is to discharge to [facility] , patient clinically show signs of slow improvement with stabel vitals over period of days of observation. Patient/ family instructed if patient clinical condition worsens she needs to come back to ER and follow up with surgery for removal of gallballder.
--- NOTE | 2017-08-05 09:17 | Patient Discharge Instructions ---
Discharge Instructions General Discharge Information You were seen/treated for: Cholecystitis Watch for these problems: In case of abdominal pain, chest pain, shortness of breath, fevers please go to the nearest emergency room Special Instructions: Please follow-up with your primary care provider and surgeon within 1-2 weeks of discharge. Diet Continue normal diet: No Recommended Diet: Regular Activity Full Activity/No Limits: No Activity Self Limited: Yes Acute Coronary Syndrome Inclusion Criteria At DC or during hospital stay patient has or had the following: ACS DIAGNOSIS No Discharge Core Measures Meds if any: Prescribed or Continued at Discharge Meds if any: NOT Prescribed or Continued at Discharge Congestive Heart Failure Inclusion Criteria At DC or during hospital stay patient has or had the following: CHF DIAGNOSIS No Discharge Core Measures Meds if any: Prescribed or Continued at Discharge Meds if any: NOT Prescribed or Continued at Discharge Cerebrovascular accident Inclusion Criteria At DC or during hospital stay patient has or had the following: CVA/TIA Diagnosis No Discharge Core Measures Meds if any: Prescribed or Continued at Discharge Meds if any: NOT Prescribed or Continued at Discharge Venous thromboembolism Inclusion Criteria VTE Diagnosis No VTE Type NONE VTE Confirmed by (Test) NONE Discharge Core Measures - Per Current guidelines, there needs to be overlap - treatment for the first 5 days of Warfarin therapy. - If discharged on Warfarin prior to 5 days of - overlap therapy, the patient will need to be - assessed for post discharge needs including - *Post discharge parental anticoagulation - *Warfarin and/or parental anticoagulation education - *Follow up date to check INR post discharge At least 5 days overlap therapy as Inpatient No Meds if any: Prescribed or Continued at Discharge Note: Overlap Therapy is Warfarin and Anticoagulant Meds if any: NOT Prescribed or Continued at Discharge
[2017-08-05 09:36] LABS: ABSOLUTE BASOPHIL COUNT 0 /CUMM (0.0-0.2); ABSOLUTE EOSINOPHIL COUNT 0.1 /CUMM (0.0-0.7); ABSOLUTE GRANULOCYTE CT 3.2 /CUMM (1.4-6.5); ABSOLUTE LYMPH COUNT 1.4 /CUMM (1.2-3.4); ABSOLUTE MONOCYTE COUNT 0.4 /CUMM (0.10-0.60); BASOPHIL % 0.8 % (0.0-2.0); EOSINOPHIL % 1.9 % (0-5); GRANULOCYTE % 62.5 % (42.2-75.2); MEAN CORPUSCULAR VOLUME 85.3 FL (81.0-99.0); MEAN PLATELET VOLUME 7.3 FL (7.4-10.4); PLATELET COUNT 496 /CUMM (130-400); RBC DISTRIBUTION WIDTH 14.2 % (11.5-14.5); RED BLOOD CELL CT 3.52 /CUMM (4.20-5.40); WHITE BLOOD CELL COUNT 5.1 /CUMM (4.8-10.8)
--- NOTE | 2017-08-05 09:42 | Event Note ---
Event Note Event Note: I spoke to IR DR Porter and to Dr. Strong regarding plan for surgery, both decided to deffer placing cholecystostomy tube now. They have planned for cholecystectomy in 4-6 weeks. The same information was passed on to the family.
[2017-08-05 14:09] VITALS: BP 140/80
--- NOTE | 2017-08-05 15:03 | Discharge Summary ---
Visit Information Visit Dates Admission Date: 08/01/17 Discharge Date: 08/06/17 Hospital Course Course Attending Physician: Yohana Mercer MD Primary Care Physician: Florencio YOUNG,Hudson Cao Hospital Course: The patient is an 86 year old woman resident of [facility] with h/o Alzheimer 's dementia, HTN, depression, GERD, NSAID induced ulcers, COPD, B12 deficiency, recently admitted to [facility] (07/20 07/24) for acute calculous cholecystitis with possible perforation not deemed a surgical candidate and hence underwent cholecystostomy tube placement by interventional radiology on 07/21 and discharged on Clindamycin. She is demented at baseline and does not provide a good history. However she was was brought in to the ER on July 31 for worsening right upper quadrant pain and decreased output from the cholecystostomy tube. Patient was also having pain when the tube was flushed. She reported nausea and abdominal pain, but no vomiting. She also reported right sided chest discomfort around medial aspect of right breast. Physical exam on presentation: Gen: Awake and alert but oriented x 1, dry mucous membranes, neck supple. Chest: there is a 1 cm firm to hard nodule palpable on right inferior inner breast region, tender but no erythema, lungs are clear, Heart S1S2 regular, Abd soft, distended, RUQ tenderness, BS+, LE no edema. Significant labs at presentation: No leukocytosis, Plt 606, INR 1.19, glucose 108, LFTs normal, troponin negative. EKG: sinus rhythm with ?PAC's, nonspecific changes. Imaging at presentation: CT abd/pelvis with contrast showed a cholecystostomy tube located outside gallbladder lumen, small fluid collection with foci of gas posterior to tube tip; cholelithiasis with reduced degree of inflammation, cannot rule out cholecystocolonic fistula; 1.3 cm subcutaneous nodule inner quadrant of right breast, exophytic left renal cyst. She was kept in the ED for observation. Surgery (Dr. Delgado) and interventional radiology (IR) were consulted on August 01, 2017. The old dislodged tube was removed by interventional radiology, however they were not able to place a new cholecystostomy tube due to the patient's agitation. Surgery requested admission to medicine for conservative management and to observe for any deterioration in her clinical status. A second opinion was obtained by General surgeon Dr. Cornelius (As per patient's family request) who agreed with conservative management. She was admitted for cholecystostomy tube malfunction and managed for acute cholecystitis with IV Ceftriaxone and flagyl because of her penicillin allergy. She was reviewed by infectious disease consult on the consult. Repeat imaging with CT abdomen and pelvis with IV and oral contrast showed residual cholelithiasis and cholecystitis with no free pericholecystic fluid collections that was stable compared to prior imaging. She was continued on IV ceftriaxone and IV flagyl for 4 days and clinically improved before antibiotics were discontinued by Infectious disease regional engagement consultant. The patient's symptoms improved on conservative management and general surgery felt that surgery this close to an acute cholecystitis episode was not needed as this would likely require extensive dissection of adhesions with a resultant much higher morbidity than a regular cholecystectomy for an incident episode of acute cholecystitis. The general surgeons recommendation was that the patient should wait for 4-6 weeks ( maybe even 8 weeks) to allow for the inflammation/adhesions to decrease and therefore decrease overall surgical morbidity. It was felt that if the patient should worsen clinically then reconsideration of cholecystostomy tube placement would be entertained at that time. The patient was therefore discharged off antibiotics to rehabilitation facility for nursing care. Allergies: Coded Allergies: Penicillins (UNKNOWN 12/09/16) Significant Procedures: None Disposition Summary Disposition Principal Diagnosis: 1. Cholecystostomy tube dysfunction requiring removal 2. Acute calculous cholecystitis on conservative management 3. Essential hypertension 4. Chronic anemia likely B12 deficiency on supplementation Additional Diagnosis: 5. GERD 6. NSAID induced ulcers 7. Alzheimers dementia Discharge Disposition: SNF Discharge Instructions General Discharge Information Code Status: Do Not Resucitate/Intubat Patient's Diet: Regular diet Patient's Activity: Self-limited activity Follow-Up Instructions/Appts: Please follow-up with your primary care provider and general surgeon within 1-2 weeks of discharge. Medications at Discharge Discharge Medications: Continue taking these medications: Folic Acid (Folic Acid) 0.8 MG TABLET 1 Tablet ORAL DAILY Comments: Last Taken: 08/06/17 Time: 09 AM Docusate Sodium (Colace) 100 MG CAPSULE 1 Capsule ORAL DAILY Comments: Last Taken: 08/06/17 Time: 09 AM Cyanocobalamin (Vitamin B-12) 1,000 MCG TABLET 1 Tablet ORAL Every 3 days Comments: DID NOT ADMINISTER Amlodipine Besylate (Amlodipine Besylate) 5 MG TABLET 1 Tablet ORAL DAILY Qty = 30 Comments: Last Taken: 08/06/17 Time: 0919 AM Paroxetine HCl (Paroxetine HCl) 20 MG TABLET 1 Tablet ORAL DAILY Qty = 30 Comments: Last Taken: 08/06/17 Time: 09 AM Acetaminophen With Codeine (Acetaminophen-Cod #3 Tablet) 300 MG-30 MG TABLET 1 Tablet ORAL Q12H Qty = 60 Comments: DID NOT ADMINISTER Donepezil HCl (Donepezil HCl) 10 MG TABLET 1 Tablet ORAL 5 PM Qty = 30 Comments: Last Taken: 08/06/17 Time:09 AM Memantine HCl (Namenda XR) 28 MG CAP.SPR.24 1 Capsule ORAL TAKE AT BEDTIME Qty = 14 Comments: DID NOT ADMINISTER Buspirone HCl (Buspirone HCl) 5 MG TABLET 0.5 Tablet ORAL Every Morning Comments: DID NOT ADMINISTER Buspirone HCl (Buspirone HCl) 5 MG TABLET 2.5 Milligram ORAL Every Morning Comments: DID NOT ADMINISTER Nitroglycerin (Nitrostat) 0.3 MG TAB.SUBL 1 Tablet SUBLINGUAL As Directed as needed for CHEST PAIN Comments: DID NOT ADMINISTER Magnesium Hydroxide (Milk Of Magnesia) 400 MG/5 ML ORAL.SUSP 30 Milliliters ORAL DAILY as needed for CONSTIPATION Comments: DID NOT ADMINISTER Bisacodyl (Dulcolax) 10 MG SUPP.RECT 1 Suppository RECTAL As Directed as needed for CONSTIPATION Comments: DID NOT ADMINISTER Na Phos,M-B/Na Phos,Di-Ba (Fleet Enema) 19 GRAM-7 GRAM/118 ML ENEMA 1 Enema RECTAL DAILY as needed for CONSTIPATION Comments: DID NOT ADMINISTER Mag Hydrox/Al Hydrox/Simeth (Antacid Maximum Strength Liq) 400 MG-400 MG-40 MG/5 ML ORAL.SUSP 30 Milliliters ORAL THREE TIMES DAILY as needed for EPIGASTRIC/GAS PAIN Comments: DID NOT ADMINISTER Acetaminophen (Tylenol) 325 MG TABLET 2 Tablet ORAL Q4H as needed for PAIN/TEMP>100 Comments: Last Taken: 08/05/17 Time: 6:30PM Pantoprazole Sodium (Protonix) 40 MG TABLET.DR 1 Tablet ORAL DAILY Qty = 30 Comments: Last Taken: 08/06/17 Time: 09 AM Lactobacillus Acidophilus (Acidophilus) 1 EACH CAPSULE 1 Capsule ORAL DAILY Qty = 30 Comments: Last Taken: 08/06/17 Time: 0918 AM Ondansetron (Zofran Odt) 4 MG TAB.RAPDIS 1 Tablet SUBLINGUAL THREE TIMES DAILY as needed for Nausea/Vomiting Qty = 15 Comments: DID NOT ADMINISTER Buspirone HCl (Buspirone HCl) 5 MG TABLET 12.5 Milligram ORAL TAKE AT BEDTIME Comments: DID NOT ADMINISTER Acetaminophen (Acephen) 650 MG SUPP.RECT 1 SUPPOSITORY RECTALLY Q4H as needed for JAJA/TEMP>100 Comments: DID NOT ADMINISTER Copies To: German YOUNG,Francine; Florencio YOUNG,Hudson Cao; Anam Delgado DO; Adryan YOUNG,Jarrett Rushing; Shanel YOUNG,Jorje Allred Attending MD Review Statement Documenting Attending: Sylvie YOUNG,Yohana Other Findings: Patient is tolerating PO with no nausea/vomiting. Patient Nurse reported no new complaints. Recommendations: -Surgery revaluation recommend conservative management for now. IR Dr Porter and Surgery Dr Cornelius had discussion, Repeat imaging noted. Primary surgeon Dr Delgado did recommend conservative measures for now. -Continue current pain regimen. -completed antibiotic regimen as per ID -Protonix oral route. Plan is to discharge to [facility] , patient clinically show signs of slow improvement with stable vitals over period of days of observation. Patient/ family instructed if patient clinical condition worsens she needs to come back to ER and follow up with surgery for removal of gallballder.
--- NOTE | 2017-08-05 17:28 | PN- Infect Dx ---
Subjective Subjective: Afebrile without complaints Objective Last 24 Hrs of Vital Signs/I&O Vital Signs Date Time Temp Pulse Resp B/P B/P Pulse O2 O2 Flow FiO2 Mean Ox Delivery Rate 08/05 1409 99.0 100 20 140/80 95 Room Air 08/05 0658 98.7 73 20 116/60 94 Room Air 08/04 2141 97.8 79 20 130/70 96 Intake & Output 08/05 1600 08/05 0800 08/05 0000 Intake Total 335 054 3206 Output Total 400 200 Balance -955 028 7456 Intake, IV 400 400 Intake, Oral 240 800 Number 1 1 Bowel Movements Output, Urine 400 200 Physical Exam Other Physical Findings: She is awake and alert in no acute distress Abdomen is soft, tender on palpation of the epigastrium and right upper quadrant , with no guarding or rebound, positive bowel sounds Results Last 24 Hours of Lab Results: Laboratory Tests 08/05 08/04 0905 1944 Chemistry Sodium (137 - 145 mmol/L) 139 Potassium (3.5 - 5.1 mmol/L) 3.4 L Chloride (98 - 107 mmol/L) 101 Carbon Dioxide (22 - 30 mmol/L) 23 Anion Gap (5 - 16) 14 BUN (7 - 17 mg/dL) 12 Creatinine (0.5 - 1.0 mg/dL) 0.7 Estimated GFR (>60 ml/min) > 60 BUN/Creatinine Ratio (7 - 25 %) 17.1 Total Bilirubin (0.2 - 1.3 mg/dL) 0.7 Direct Bilirubin (< 0.4 mg/dL) 0.7 H AST (14 - 36 U/L) 18 ALT (9 - 52 U/L) 28 Alkaline Phosphatase (<127 U/L) 101 Total Protein (6.3 - 8.2 g/dL) 6.5 Albumin (3.5 - 5.0 g/dL) 3.5 Hematology CBC w Diff NO MAN DIFF REQ WBC (4.8 - 10.8 /CUMM) 5.1 RBC (4.20 - 5.40 /CUMM) 3.52 L Hgb (12.0 - 16.0 G/DL) 10.2 L Hct (37 - 47 %) 30.0 L MCV (81.0 - 99.0 FL) 85.3 MCH (27.0 - 31.0 PG) 29.0 MCHC (33.0 - 37.0 G/DL) 34.0 RDW (11.5 - 14.5 %) 14.2 Plt Count (130 - 400 /CUMM) 496 H MPV (7.4 - 10.4 FL) 7.3 L Gran % (42.2 - 75.2 %) 62.5 Lymphocytes % (20.5 - 51.1 %) 26.3 Monocytes % (1.7 - 9.3 %) 8.5 Eosinophils % (0 - 5 %) 1.9 Basophils % (0.0 - 2.0 %) 0.8 Absolute Granulocytes (1.4 - 6.5 /CUMM) 3.2 Absolute Lymphocytes (1.2 - 3.4 /CUMM) 1.4 Absolute Monocytes (0.10 - 0.60 /CUMM) 0.4 Absolute Eosinophils (0.0 - 0.7 /CUMM) 0.1 Absolute Basophils (0.0 - 0.2 /CUMM) 0 Last 24 Hours of [place] Results: No new cultures Recent Imaging Studies: CT of the abdomen and pelvis August 04 reveals the gallbladder lumen filled with numerous gallstones, with gallbladder wall thickening, but with no free pericholecystic fluid collections present Assessment/Plan ID Impression: Stable, with temperatures and white blood cell count remaining normal, on Ceftriaxone and Flagyl, now Day 4 of treatment for cholecystitis, status post placement of a cholecystostomy tube 12 days prior to admission, with subsequent inadvertent removal. Surgical evaluations noted, with no plans for surgical intervention at this time and, with no plans for replacement of the cholecystostomy tube, feel that her antibiotics can be discontinued. Suggestion: 1. Further management with regard to replacement of the cholecystostomy tube/ cholecystectomy per Surgery 2. Discontinue Ceftriaxone and Flagyl and follow off antibiotics
[2017-08-05 22:35] VITALS: BP 110/42
[2017-08-06 06:39] VITALS: BP 121/60
--- NOTE | 2017-08-06 07:20 | PN- Housestaff ---
Jaime YOUNG,Irma 08/06/17 0719: Subjective Follow-up For: Acute cholecystitis Complaints: no complaints Subjective: Patient seen and examined at bedside. Patient was lying in her bed comfortably. She refused physical examination. Review of system-unobtainable. Review of Systems Constitutional: Reports: see HPI. Objective Last 24 Hrs of Vital Signs/I&O Vital Signs Date Time Temp Pulse Resp B/P B/P Pulse O2 O2 Flow FiO2 Mean Ox Delivery Rate 08/06 09 60 120/60 08/06 0639 98.1 60 20 121/60 95 Room Air 08/05 2235 98.2 76 20 110/42 94 Room Air 08/05 1409 99.0 100 20 140/80 95 Room Air Intake & Output 08/06 1600 08/06 0800 08/06 0000 Intake Total 1100 Output Total 100 Balance -100 1100 Intake, IV 500 Intake, Oral 600 Output, Urine 100 Patient 170 lb Weight Physical Exam General Appearance: Alert, Oriented X3 Other Physical Findings: Physical examination-was not done. Patient refused. Current Medications: Current Medications Sig/Joyce Start time Last Medication Dose Route Stop Time Status Admin Acetaminophen 650 MG ONCE ONE 08/05 1815 DC 08/05 PO 08/05 1816 1832 Acetaminophen 1,000 MG Q8P PRN 08/02 0600 DC 08/03 N/A 1 UNIT IV 0136 Amlodipine Besylate 5 MG DAILY 08/01 1000 AC 08/06 PO 0919 Ceftriaxone Sodium 1,000 MG DAILY 08/02 1000 DC 08/05 IV 0825 Dextrose/Sodium 1,000 ML Q20H 08/04 0800 DC 08/05 Chloride IV 0828 Docusate Sodium 100 MG DAILY 08/01 1000 AC 08/06 PO 0919 Donepezil HCl 10 MG DAILY 07/31 1911 AC 08/06 PO 0919 Folic Acid 1 MG DAILY 08/01 1000 AC 08/06 PO 0919 Heparin Sodium 5,000 UNIT Q8 08/01 2331 AC 08/06 (Porcine) SC 0646 Lactobacillus 1 CAP DAILY 08/02 1000 AC 08/06 Acidophilus PO 0918 Metronidazole 500 MG IQ8 08/02 0000 DC 08/05 N/A 1 UNIT IV 1546 Pantoprazole Sodium 40 MG DAILY 08/02 1000 AC 08/06 IV 0919 Paroxetine HCl 20 MG 0800 08/01 0800 AC 08/06 PO 0919 Potassium Chloride 60 MEQ ONCE ONE 08/05 1630 DC 08/05 PO 08/05 1631 1634 Assessment/Plan Assessment: Problem list #Calculus cholecystitis status post cholecystostomy tube--dislodged #Persistent acute cholecystitis #1.3 cm subcutaneous nodule within inner quadrant of right breast require follow -up with mammography #History of hypertension--- patient maintain blood pressure #Alzheimer disease Ms. Hart is 86 year old female with past medical history significant for Alzheimer disease, hypertension, depression, GERD, COPD was recently discharged from hospital 07/24 2017 after the placement of cholecystostomy as patient presented with abdominal pain at that time and CT scan revealed severe calculus cholecystitis with possible perforation, patient was not surgical candidate and was discharged back to [facility] on clindamycin for 10 days which she completed. Patient presented to ED on 07/31 for dislodged cholecystectomy, since patient is not surgical candidate, IR was called for replacement of cholecystostomy tube that was unsuccessful because patient was combative and wouldn't let the staff take her blood pressure or prep her and situation was unsafe so procedure was canceled. Patient will be observed in general medical floor for conservative management and surgical reevaluation for possible surgery versus IR procedure. Plan - Cholycystostomy tube placement was cancelled by IR and surgery. The surgeons want to do cholecystectomy 4 weeks later. Patient tolerates by mouth intake. Patient had a bowel movement yesterday. Patient is off all monitor. -Follow off antibiotics as per ID. -Pain control with acetaminophen -Continue home medication including amlodipine 5 mg daily -DVT prophylaxis heparin subcutaneous -Code DNR/DNI Patient is plan for discharge today. Problem List: 1. Cholecystitis Pain Ratin Pain Location: none Pain Goal: Remain pain free Pain Plan: tylenol Tomorrow's Labs & Rationales: none Yohana Mercer 08/06/17 1044: Attending MD Review Statement Attending Statement Attending MD Statement: examined this patient, discuss w/resident/PA/COMPUTATIONAL PHYSICIST, agreed w/resident/PA/COMPUTATIONAL PHYSICIST, discussed with family, reviewed EMR data (avail), discussed with nursing, discussed with case mgmt, reviewed images, amended to note Attending Assessment/Plan: Patient is tolerating PO with no nausea/vomiting. Patient Nurse reported no new complaints. Recommendations: -Advance diet as recommended by the surgical service. -Surgery revaluation recommend conservative management for now. IR Dr Porter and Surgery Dr Cornelius had discussion, Repeat imaging noted. Primary surgeon Dr Delgado did recommend conservative measures for now. -Continue current pain regimen. -completed antibiotic regimen. f/u ID -Protonix oral route. [facility] , patient clinically show signs of slow improvement with stable vitals over period of days of observation. Patient/ family instructed if patient clinical condition worsens she needs to come back to ER and follow up with surgery for removal of gallballder.
[2017-08-06 11:21] VITALS: BP 120/60
[2017-08-06 12:20] VITALS: BP 120/60
== END 2017-08-06 13:10 | DRG 445 ==
LOC: ERH 15:42 → ERHI 18:52 → 2NA 18:52 → ERHI 18:52 → 2NA 08-01 20:31 → EDBEDREQDT 08-01 21:00 → EDBEDREQTM 08-01 21:00 → EDBEDREQ 08-01 21:00 → ENRESERV 08-01 21:40 → ENTRNSPT 08-01 22:14 → 2NA 08-01 22:15 → CMPTRNSPT 08-01 22:26 → 2NA 08-01 22:28 → ENPENDDIS 08-06 11:10 → 2NA 08-06 13:10
PROVIDERS: Internal Medicine; Physician Assistant Medical; Student in an Organized Health Care Education/Training Program
DX: K81.0 Acute cholecystitis (principal); T85.628A Displacement of other specified internal prosthetic devices, implants and grafts, initial encounter; F02.81 Dementia in other diseases classified elsewhere, unspecified severity, with behavioral disturbance; G30.9 Alzheimer's disease, unspecified; D53.9 Nutritional anemia, unspecified; J44.9 Chronic obstructive pulmonary disease, unspecified; F10.97 Alcohol use, unspecified with alcohol-induced persisting dementia; E53.8 Deficiency of other specified B group vitamins; I10 Essential (primary) hypertension; F32.9 Major depressive disorder, single episode, unspecified; K21.9 Gastro-esophageal reflux disease without esophagitis; Z88.0 Allergy status to penicillin; F41.9 Anxiety disorder, unspecified; M19.91 Primary osteoarthritis, unspecified site; Z66 Do not resuscitate; K25.9 Gastric ulcer, unspecified as acute or chronic, without hemorrhage or perforation; T39.395A Adverse effect of other nonsteroidal anti-inflammatory drugs [NSAID], initial encounter
CPT/HCPCS: 2NASP; 6030; ERO; 36415; 74177; 82436; 87040; 93005; 93010; 96360; 96361; G0378; J0131; J0696; J1644; J2405; J3490; J7042